=== PATIENT | male | born 1945 | race African-American/Black ===

== ENCOUNTER 2023-03-27 14:09 | Inpatient (IN) | payer OTHER ==
[2023-03-27] MEDS ORDERED: NITROGLYCERIN SUBLINGUAL 1/200 0.3 MG BTL SL ONE (14:57)
[2023-03-27 15:25] LABS: BASO % 0.2 % (0-2.0); HEMATOCRIT 32.8 % (35.4-49); HEMOGLOBIN 10.5 GM/dL (11.7-16.9); LYMPH % 3.4 % (8-40); MCH 25.3 pg (25.7-33.7); MCHC 32.1 g/dl (32.0-35.9); MEAN CELL VOLUME 78.8 fl (80-96); MEAN PLT VOLUME 9.1 fl (7.5-11.1); MONO % 5.9 % (3.8-10.2); NEUT % 90.5 % (42.8-82.8); PLATELET COUNT 201 10^3/uL (134-434); RBC 4.16 M/mm3 (4.00-5.60); RDW 15.6 % (11.9-15.9); WHITE BLOOD COUNT 7.8 K/mm3 (4.0-10.0)
[2023-03-27 15:27] LABS: VENOUS BASE EXCESS 2.2 mmol/L (-2-2); VENOUS O2 SATURATION 48.8 % (70-80); VENOUS PH 7.232 (7.310-7.410)
[2023-03-27 15:28] LABS: VENOUS PCO2 77.2 mmHg (38-52)
[2023-03-27 15:31] LABS: INR 1.03 (0.83-1.09)
[2023-03-27 15:34] LABS: ACTIVATED PTT 33.4 SECONDS (25.2-36.5)
[2023-03-27] MEDS ORDERED: FUROSEMIDE 40 MG/4 ML INJECTABLE VIAL IVPUSH ONE ×2 (15:38→17:20)
[2023-03-27] MEDS ORDERED: NITROGLYCERIN SUBLINGUAL 1/150 0.4 MG TAB SL ONE ×3 (15:38→16:46)
[2023-03-27] MEDS ORDERED: NITROGLYCERIN 2% OINTMENT - 1GM PACKET TD ONE ×2 (15:40→15:47)
[2023-03-27] MEDS ORDERED: FUROSEMIDE 40 MG/4 ML INJECTABLE VIAL ONE ×2 (15:42→17:56)
[2023-03-27 15:54] LABS: CALCIUM 8.7 mg/dL (8.5-10.1)
[2023-03-27 15:55] LABS: ALBUMIN 3.3 g/dl (3.4-5.0); BLOOD UREA NITROGEN 24.4 mg/dL (7-18)
[2023-03-27 15:58] LABS: CREATININE 1.9 mg/dL (0.55-1.3)
[2023-03-27 16:00] LABS: BILIRUBIN,TOTAL 0.7 mg/dL (0.2-1)
[2023-03-27 17:07] LABS: VENOUS BASE EXCESS 2.4 mmol/L (-2-2); VENOUS O2 SATURATION 73.6 % (70-80); VENOUS PH 7.251 (7.310-7.410)
[2023-03-27 17:11] LABS: VENOUS PCO2 72.9 mmHg (38-52)
[2023-03-27 18:47] LABS: N-TERMINAL BNP 1908.9 pg/ml (5-450)
[2023-03-27] MEDS ORDERED: hydrALAZINE HCL 10 MG TABLET PO ONE (20:39)
[2023-03-27] MEDS: HEPARIN NA (PORCINE) 5,000 UNITS/ML 1ML VIAL SQ SCH (21:52)
[2023-03-27] MEDS ORDERED: INSULIN (NOVOLOG) ASPART 100 UNITS/ML 10ML VIAL ONE (21:55)
[2023-03-27] MEDS: INSULIN SLIDING SCALE (NOVOLOG) 1 VIAL SQ SCH (22:00)
[2023-03-27] MEDS ORDERED: hydrALAZINE HCL 10 MG TABLET PO SCH (22:00)
[2023-03-28] MEDS: HEPARIN NA (PORCINE) 5,000 UNITS/ML 1ML VIAL SQ SCH ×4 (06:51→22:47)
[2023-03-28] MEDS: FUROSEMIDE 40 MG/4 ML INJECTABLE VIAL IVPUSH SCH ×2 (06:51→14:46)
[2023-03-28] MEDS: INSULIN SLIDING SCALE (NOVOLOG) 1 VIAL SQ SCH ×4 (06:51→22:21)
[2023-03-28 08:16] LABS: BASO % 0.5 % (0-2.0); HEMOGLOBIN 9.1 GM/dL (11.7-16.9); LYMPH % 8.2 % (8-40); MCH 24.9 pg (25.7-33.7); MCHC 31.6 g/dl (32.0-35.9); MEAN CELL VOLUME 78.9 fl (80-96); MEAN PLT VOLUME 9.3 fl (7.5-11.1); MONO % 14.1 % (3.8-10.2); NEUT % 76.2 % (42.8-82.8); PLATELET COUNT 178 10^3/uL (134-434); RBC 3.67 M/mm3 (4.00-5.60); RDW 15.4 % (11.9-15.9)
[2023-03-28 08:28] LABS: POTASSIUM 3.5 mmol/L (3.5-5.1)
[2023-03-28 08:33] LABS: CALCIUM 8.5 mg/dL (8.5-10.1)
[2023-03-28 08:34] LABS: ALBUMIN 2.7 g/dl (3.4-5.0); BLOOD UREA NITROGEN 22.6 mg/dL (7-18); MAGNESIUM 2.3 mg/dL (1.8-2.4)
[2023-03-28 08:35] LABS: PHOSPHOROUS 3.8 mg/dL (2.5-4.9)
[2023-03-28 08:37] LABS: BILIRUBIN,TOTAL 0.8 mg/dL (0.2-1); CREATININE 1.7 mg/dL (0.55-1.3); TOT PROT 6.6 g/dl (6.4-8.2)
[2023-03-28] MEDS: CLOPIDOGREL BISULFATE 75 MG TABLET (FP) PO SCH (10:04)
[2023-03-28] MEDS: TAMSULOSIN HCL 0.4 MG CAP PO SCH (10:04)
[2023-03-28] MEDS: amLODIPine BESYLATE 5 MG TABLET (FP) PO SCH (10:05)
[2023-03-28] MEDS: hydrALAZINE HCL 10 MG TABLET PO SCH ×3 (10:05→22:47)
[2023-03-28] MEDS: SERTRALINE HCL 25 MG TABLET (FP) PO SCH (10:05)
[2023-03-28] MEDS: ASPIRIN COATED 81 MG TABLET.EC PO SCH (10:05)
[2023-03-28 21:12] VITALS: BMI 31.8
[2023-03-28] MEDS: ATORVASTATIN CA 20 MG TABLET (FP) PO SCH ×2 (22:36→22:48)
[2023-03-29] MEDS: INSULIN SLIDING SCALE (NOVOLOG) 1 VIAL SQ SCH ×4 (06:03→23:17)
[2023-03-29] MEDS: FUROSEMIDE 40 MG/4 ML INJECTABLE VIAL IVPUSH SCH ×2 (06:11→13:30)
[2023-03-29] MEDS: HEPARIN NA (PORCINE) 5,000 UNITS/ML 1ML VIAL SQ SCH ×3 (06:11→23:16)
[2023-03-29] MEDS: SERTRALINE HCL 25 MG TABLET (FP) PO SCH (10:22)
[2023-03-29] MEDS: hydrALAZINE HCL 10 MG TABLET PO SCH ×2 (10:22→23:16)
[2023-03-29] MEDS: CLOPIDOGREL BISULFATE 75 MG TABLET (FP) PO SCH (10:23)
[2023-03-29] MEDS: amLODIPine BESYLATE 5 MG TABLET (FP) PO SCH (10:23)
[2023-03-29] MEDS: TAMSULOSIN HCL 0.4 MG CAP PO SCH (10:23)
[2023-03-29] MEDS: ASPIRIN COATED 81 MG TABLET.EC PO SCH (10:23)
[2023-03-29] MEDS: ATORVASTATIN CA 20 MG TABLET (FP) PO SCH (23:17)
[2023-03-30] MEDS: INSULIN SLIDING SCALE (NOVOLOG) 1 VIAL SQ SCH ×4 (06:46→23:04)
[2023-03-30] MEDS: HEPARIN NA (PORCINE) 5,000 UNITS/ML 1ML VIAL SQ SCH ×3 (06:51→23:04)
[2023-03-30] MEDS: FUROSEMIDE 40 MG/4 ML INJECTABLE VIAL IVPUSH SCH ×2 (06:51→13:30)
[2023-03-30 07:39] LABS: POTASSIUM 3.5 mmol/L (3.5-5.1)
[2023-03-30 07:45] LABS: ALBUMIN 2.7 g/dl (3.4-5.0); BLOOD UREA NITROGEN 20.7 mg/dL (7-18); CALCIUM 8.3 mg/dL (8.5-10.1)
[2023-03-30 07:48] LABS: CREATININE 1.7 mg/dL (0.55-1.3)
[2023-03-30 07:50] LABS: BILIRUBIN,TOTAL 0.9 mg/dL (0.2-1); TOT PROT 6.7 g/dl (6.4-8.2)
[2023-03-30] MEDS: TAMSULOSIN HCL 0.4 MG CAP PO SCH (08:01)
[2023-03-30] MEDS: CLOPIDOGREL BISULFATE 75 MG TABLET (FP) PO SCH (09:49)
[2023-03-30] MEDS: amLODIPine BESYLATE 5 MG TABLET (FP) PO SCH (09:49)
[2023-03-30] MEDS: hydrALAZINE HCL 10 MG TABLET PO SCH ×2 (09:50→23:04)
[2023-03-30] MEDS: ASPIRIN COATED 81 MG TABLET.EC PO SCH (09:50)
[2023-03-30] MEDS: SERTRALINE HCL 25 MG TABLET (FP) PO SCH (09:50)
[2023-03-30] MEDS ORDERED: INSULIN (NOVOLOG) ASPART 100 UNITS/ML 10ML VIAL ONE ×3 (11:46→23:02)
[2023-03-30 16:23] LABS: EPI CELLS 3 /uL (0-25.1); HYALINE CASTS 6 /uL (0-3.1); URINE APPEARANCE CLOUDY; URINE BACTERIA >9,000 /uL (0-1359); URINE BILIRUBIN NEGATIVE (NEGATIVE); URINE COLOR YELLOW; URINE GLUCOSE (UA) NEGATIVE (NEGATIVE); URINE KETONE NEGATIVE (NEGATIVE); URINE LEUK ESTERASE 1+ (NEGATIVE); URINE NITRITE NEGATIVE (NEGATIVE); URINE PROTEIN 3+ (NEGATIVE); URINE RBC 10 /uL (0-23.9); URINE UROBILINOGEN 0.2 mg/dL (0.2-1.0); URINE WBC 225 /uL (0-25.8)
[2023-03-30] MEDS: ATORVASTATIN CA 20 MG TABLET (FP) PO SCH (23:04)
[2023-03-31] MEDS: FUROSEMIDE 40 MG/4 ML INJECTABLE VIAL IVPUSH SCH (06:26)
[2023-03-31] MEDS: INSULIN SLIDING SCALE (NOVOLOG) 1 VIAL SQ SCH ×4 (06:31→21:26)
[2023-03-31] MEDS: HEPARIN NA (PORCINE) 5,000 UNITS/ML 1ML VIAL SQ SCH ×3 (06:35→21:26)
[2023-03-31 07:27] LABS: POTASSIUM 3.4 mmol/L (3.5-5.1)
[2023-03-31 07:32] LABS: CALCIUM 8.7 mg/dL (8.5-10.1)
[2023-03-31 07:33] LABS: ALBUMIN 2.9 g/dl (3.4-5.0); BLOOD UREA NITROGEN 19.9 mg/dL (7-18)
[2023-03-31 07:36] LABS: CREATININE 1.6 mg/dL (0.55-1.3)
[2023-03-31 07:38] LABS: BILIRUBIN,TOTAL 0.9 mg/dL (0.2-1); TOT PROT 7.5 g/dl (6.4-8.2)
[2023-03-31] MEDS: TAMSULOSIN HCL 0.4 MG CAP PO SCH (08:27)
[2023-03-31 08:36] LABS: BASO % 0.6 % (0-2.0); HEMATOCRIT 32.3 % (35.4-49); HEMOGLOBIN 10.1 GM/dL (11.7-16.9); LYMPH % 10.1 % (8-40); MCH 24.8 pg (25.7-33.7); MCHC 31.3 g/dl (32.0-35.9); MEAN CELL VOLUME 79.3 fl (80-96); MEAN PLT VOLUME 9.7 fl (7.5-11.1); MONO % 15.5 % (3.8-10.2); NEUT % 71.8 % (42.8-82.8); PLATELET COUNT 205 10^3/uL (134-434); RBC 4.07 M/mm3 (4.00-5.60); RDW 15.3 % (11.9-15.9); WHITE BLOOD COUNT 4.3 K/mm3 (4.0-10.0)
[2023-03-31] MEDS ORDERED: POTASSIUM CHLORIDE ORAL LIQUID 20 MEQ/15 ML PO ONE (08:38)
[2023-03-31] MEDS: SERTRALINE HCL 25 MG TABLET (FP) PO SCH (09:36)
[2023-03-31] MEDS: CLOPIDOGREL BISULFATE 75 MG TABLET (FP) PO SCH (09:36)
[2023-03-31] MEDS: TORSEMIDE 20 MG TABLET (FP) PO SCH (09:36)
[2023-03-31] MEDS: amLODIPine BESYLATE 5 MG TABLET (FP) PO SCH (09:36)
[2023-03-31] MEDS: ASPIRIN COATED 81 MG TABLET.EC PO SCH (09:36)
[2023-03-31] MEDS: hydrALAZINE HCL 10 MG TABLET PO SCH ×2 (09:38→21:27)
[2023-03-31] MEDS: POTASSIUM CHLORIDE ORAL LIQUID 20 MEQ/15 ML PO SCH (09:38)
[2023-03-31] MEDS: LISINOPRIL 5 MG TABLET PO SCH (17:17)
[2023-03-31] MEDS ORDERED: INSULIN (NOVOLOG) ASPART 100 UNITS/ML 10ML VIAL ONE (21:23)
[2023-03-31] MEDS: ATORVASTATIN CA 20 MG TABLET (FP) PO SCH (21:27)
[2023-04-01] MEDS: HEPARIN NA (PORCINE) 5,000 UNITS/ML 1ML VIAL SQ SCH ×3 (06:06→21:31)
[2023-04-01] MEDS: INSULIN SLIDING SCALE (NOVOLOG) 1 VIAL SQ SCH ×4 (06:07→21:31)
[2023-04-01] MEDS ORDERED: REGADENOSON 0.4 MG/5 ML PRE-FILLED SYRINGE IVPUSH ONE ×2 (09:56→10:30)
[2023-04-01] MEDS: TORSEMIDE 20 MG TABLET (FP) PO SCH (14:00)
[2023-04-01] MEDS: LISINOPRIL 5 MG TABLET PO SCH (14:00)
[2023-04-01] MEDS: POTASSIUM CHLORIDE ORAL LIQUID 20 MEQ/15 ML PO SCH (14:00)
[2023-04-01] MEDS: CLOPIDOGREL BISULFATE 75 MG TABLET (FP) PO SCH (14:01)
[2023-04-01] MEDS: SERTRALINE HCL 25 MG TABLET (FP) PO SCH (14:01)
[2023-04-01] MEDS: hydrALAZINE HCL 10 MG TABLET PO SCH ×2 (14:01→21:31)
[2023-04-01] MEDS: ASPIRIN COATED 81 MG TABLET.EC PO SCH (14:02)
[2023-04-01] MEDS: amLODIPine BESYLATE 5 MG TABLET (FP) PO SCH (14:02)
[2023-04-01] MEDS: TAMSULOSIN HCL 0.4 MG CAP PO SCH (14:03)
[2023-04-01] MEDS: ATORVASTATIN CA 20 MG TABLET (FP) PO SCH (21:31)
[2023-04-02] MEDS: INSULIN SLIDING SCALE (NOVOLOG) 1 VIAL SQ SCH ×4 (06:55→21:12)
[2023-04-02] MEDS: HEPARIN NA (PORCINE) 5,000 UNITS/ML 1ML VIAL SQ SCH ×3 (06:56→21:04)
[2023-04-02 07:35] LABS: BASO % 0.5 % (0-2.0); EOS % 2.4 % (0-4.5); HEMATOCRIT 32.7 % (35.4-49); HEMOGLOBIN 10.6 GM/dL (11.7-16.9); LYMPH % 9.1 % (8-40); MCH 25.3 pg (25.7-33.7); MCHC 32.4 g/dl (32.0-35.9); MEAN CELL VOLUME 78.1 fl (80-96); MEAN PLT VOLUME 9.5 fl (7.5-11.1); MONO % 10.8 % (3.8-10.2); NEUT % 77.2 % (42.8-82.8); PLATELET COUNT 209 10^3/uL (134-434); RBC 4.19 M/mm3 (4.00-5.60); WHITE BLOOD COUNT 5.9 K/mm3 (4.0-10.0)
[2023-04-02 07:42] LABS: POTASSIUM 3.4 mmol/L (3.5-5.1)
[2023-04-02 07:48] LABS: BLOOD UREA NITROGEN 21.5 mg/dL (7-18); CALCIUM 8.9 mg/dL (8.5-10.1)
[2023-04-02 07:52] LABS: CREATININE 1.6 mg/dL (0.55-1.3)
[2023-04-02 07:54] LABS: BILIRUBIN,TOTAL 0.9 mg/dL (0.2-1); TOT PROT 7.2 g/dl (6.4-8.2)
[2023-04-02] MEDS ORDERED: POTASSIUM CHLORIDE ORAL LIQUID 20 MEQ/15 ML PO SCH (07:56)
[2023-04-02] MEDS: TORSEMIDE 20 MG TABLET (FP) PO SCH (09:11)
[2023-04-02] MEDS: LISINOPRIL 5 MG TABLET PO SCH (09:12)
[2023-04-02] MEDS: CLOPIDOGREL BISULFATE 75 MG TABLET (FP) PO SCH (09:12)
[2023-04-02] MEDS: SERTRALINE HCL 25 MG TABLET (FP) PO SCH (09:12)
[2023-04-02] MEDS: amLODIPine BESYLATE 5 MG TABLET (FP) PO SCH (09:12)
[2023-04-02] MEDS: hydrALAZINE HCL 10 MG TABLET PO SCH (09:12)
[2023-04-02] MEDS: ASPIRIN COATED 81 MG TABLET.EC PO SCH (09:12)
[2023-04-02] MEDS: TAMSULOSIN HCL 0.4 MG CAP PO SCH (09:12)
[2023-04-02 09:18] VITALS: RESP 18
[2023-04-02] MEDS ORDERED: INSULIN (NOVOLOG) ASPART 100 UNITS/ML 10ML VIAL ONE ×2 (11:03→16:31)
[2023-04-02] MEDS ORDERED: metoPROLOL SUCCINATE 25 MG TAB.SR.24H (FP) PO SCH ×2 (18:00→18:03)
[2023-04-02] MEDS: ATORVASTATIN CA 20 MG TABLET (FP) PO SCH (21:04)
[2023-04-02 21:21] VITALS: BP 154/84; PULSE 77; TEMP 99
[2023-04-03] MEDS ORDERED: ASPIRIN 81 MG CHEWABLE TABLETS PO SCH (10:00)
== END 2023-04-02 21:34 | disposition home or self-care (01) | DRG 194 ==
LOC: JER 14:09 → JERBED 16:49 → J4W 18:19
PROVIDERS: ADMIT Internal Medicine; ATTEND Family Medicine
DX: I13.0 Hypertensive heart and chronic kidney disease with heart failure and stage 1 through stage 4 chronic kidney disease, or unspecified chronic kidney disease (principal); J96.01 Acute respiratory failure with hypoxia; E87.29 Other acidosis; J96.02 Acute respiratory failure with hypercapnia; E11.22 Type 2 diabetes mellitus with diabetic chronic kidney disease; I16.1 Hypertensive emergency; N18.9 Chronic kidney disease, unspecified; I50.9 Heart failure, unspecified; E78.5 Hyperlipidemia, unspecified; I73.9 Peripheral vascular disease, unspecified
CPT/HCPCS: 0241U-QW; 36415; 70450-TC; 71045-TC-FY; 76775-TC; 78452-TC; 80053; 80061; 81003; 82550; 82553; 82803; 82962; 83036; 83605; 83735; 83880; 84100; 84439; 84443; 84484; 85025; 85610; 85730; 86850; 86900; 86901; 87040; 93005; 93010; 93017; 93306-TC; 93880-TC; 94660; 94761; 99291; A9502; J1644; J2785

== ENCOUNTER 2023-05-11 15:16 | Inpatient (IN) | payer OTHER ==
[2023-05-11] MEDS ORDERED: FUROSEMIDE 40 MG/4 ML INJECTABLE VIAL IVPUSH ONE (16:17)
[2023-05-11 16:24] LABS: BASO % 0.4 % (0-2.0); EOS % 0.9 % (0-4.5); HEMATOCRIT 31.9 % (35.4-49); HEMOGLOBIN 9.9 GM/dL (11.7-16.9); LYMPH % 8.5 % (8-40); MCH 24.4 pg (25.7-33.7); MCHC 30.9 g/dl (32.0-35.9); MEAN CELL VOLUME 78.9 fl (80-96); MEAN PLT VOLUME 8.9 fl (7.5-11.1); MONO % 12.3 % (3.8-10.2); NEUT % 77.9 % (42.8-82.8); PLATELET COUNT 193 10^3/uL (134-434); RBC 4.05 M/mm3 (4.00-5.60); RDW 15.1 % (11.9-15.9); VENOUS O2 SATURATION 43.5 % (70-80); VENOUS PCO2 59.1 mmHg (38-52); VENOUS PH 7.32 (7.310-7.410); WHITE BLOOD COUNT 5.7 K/mm3 (4.0-10.0)
[2023-05-11] MEDS ORDERED: FUROSEMIDE 40 MG/4 ML INJECTABLE VIAL ONE (16:24)
[2023-05-11 16:40] LABS: PROTHROMBIN TIME (PATIENT) 11.6 SEC (9.7-13.0)
[2023-05-11 16:43] LABS: ACTIVATED PTT 31.2 SECONDS (25.2-36.5); POTASSIUM 3.9 mmol/L (3.5-5.1)
[2023-05-11 16:45] LABS: CALCIUM 8.8 mg/dL (8.5-10.1)
[2023-05-11 16:46] LABS: ALBUMIN 3.4 g/dl (3.4-5.0); BLOOD UREA NITROGEN 32.3 mg/dL (7-18); MAGNESIUM 2.3 mg/dL (1.8-2.4)
[2023-05-11 16:48] LABS: EPI CELLS 1 /uL (0-25.1); HYALINE CASTS 0 /uL (0-3.1); URINE APPEARANCE CLEAR; URINE BACTERIA >9,000 /uL (0-1359); URINE BILIRUBIN NEGATIVE (NEGATIVE); URINE COLOR YELLOW; URINE GLUCOSE (UA) NEGATIVE (NEGATIVE); URINE KETONE NEGATIVE (NEGATIVE); URINE LEUK ESTERASE 1+ (NEGATIVE); URINE NITRITE NEGATIVE (NEGATIVE); URINE PROTEIN 3+ (NEGATIVE); URINE RBC 24 /uL (0-23.9); URINE UROBILINOGEN 0.2 mg/dL (0.2-1.0); URINE WBC 241 /uL (0-25.8)
[2023-05-11 16:49] LABS: CREATININE 1.9 mg/dL (0.55-1.3); PHOSPHOROUS 3.5 mg/dL (2.5-4.9)
[2023-05-11 16:51] LABS: BILIRUBIN,TOTAL 0.8 mg/dL (0.2-1); TOT PROT 7.8 g/dl (6.4-8.2)
[2023-05-11 16:54] LABS: N-TERMINAL BNP 2211.6 pg/ml (5-450)
[2023-05-11] MEDS ORDERED: CEFTRIAXONE 1 GM in DEXTROSE 5%-WATER - 50 ML IVPB ONE (18:02)
[2023-05-11] MEDS ORDERED: CEFTRIAXONE 1 GM/50 ML BAG ONE (18:07)
[2023-05-11] MEDS ORDERED: NITROGLYCERIN 2% OINTMENT - 1GM PACKET TD ONE ×2 (20:05→20:19)
[2023-05-12] MEDS ORDERED: MELATONIN 5 MG TABLETS PO PRN (00:16)
[2023-05-12 05:58] LABS: BASO % 0.4 % (0-2.0); EOS % 0.7 % (0-4.5); HEMOGLOBIN 9.8 GM/dL (11.7-16.9); LYMPH % 7.7 % (8-40); MCH 24.7 pg (25.7-33.7); MCHC 30.5 g/dl (32.0-35.9); MEAN CELL VOLUME 81.1 fl (80-96); MEAN PLT VOLUME 9.4 fl (7.5-11.1); MONO % 12.6 % (3.8-10.2); NEUT % 78.6 % (42.8-82.8); PLATELET COUNT 195 10^3/uL (134-434); RBC 3.95 M/mm3 (4.00-5.60); RDW 15.2 % (11.9-15.9); WHITE BLOOD COUNT 7.4 K/mm3 (4.0-10.0)
[2023-05-12 06:12] LABS: POTASSIUM 3.7 mmol/L (3.5-5.1)
[2023-05-12 06:14] LABS: ALBUMIN 3.3 g/dl (3.4-5.0); BLOOD UREA NITROGEN 31.4 mg/dL (7-18); CALCIUM 8.7 mg/dL (8.5-10.1)
[2023-05-12 06:18] LABS: CREATININE 1.8 mg/dL (0.55-1.3)
[2023-05-12 06:19] LABS: BILIRUBIN,TOTAL 0.8 mg/dL (0.2-1); TOT PROT 7.6 g/dl (6.4-8.2)
[2023-05-12] MEDS: INSULIN SLIDING SCALE (NOVOLOG) 1 VIAL SQ SCH ×4 (08:40→21:58)
[2023-05-12] MEDS ORDERED: TAMSULOSIN HCL 0.4 MG CAP ONE (08:42)
[2023-05-12] MEDS: TAMSULOSIN HCL 0.4 MG CAP PO SCH (08:46)
[2023-05-12] MEDS ORDERED: LISINOPRIL 5 MG TABLET ONE (09:23)
[2023-05-12] MEDS ORDERED: amLODIPine BESYLATE 5 MG TABLET (FP) ONE (09:23)
[2023-05-12] MEDS ORDERED: ASPIRIN 81 MG CHEWABLE TABLETS ONE (09:24)
[2023-05-12] MEDS ORDERED: CLOPIDOGREL BISULFATE 75 MG TABLET (FP) ONE (09:24)
[2023-05-12] MEDS ORDERED: hydrALAZINE HCL 10 MG TABLET ONE (09:24)
[2023-05-12] MEDS ORDERED: CEFTRIAXONE 1 GM/50 ML BAG ONE (09:24)
[2023-05-12] MEDS ORDERED: SERTRALINE HCL 50 MG TABLET (FP) ONE (09:24)
[2023-05-12] MEDS: SERTRALINE HCL 25 MG TABLET (FP) PO SCH (09:33)
[2023-05-12] MEDS: ASPIRIN COATED 81 MG TABLET.EC PO SCH (09:33)
[2023-05-12] MEDS: amLODIPine BESYLATE 5 MG TABLET (FP) PO SCH (09:33)
[2023-05-12] MEDS: LISINOPRIL 5 MG TABLET PO SCH (09:33)
[2023-05-12] MEDS: CLOPIDOGREL BISULFATE 75 MG TABLET (FP) PO SCH (09:33)
[2023-05-12] MEDS: hydrALAZINE HCL 10 MG TABLET PO SCH ×2 (09:33→21:51)
[2023-05-12] MEDS: CEFTRIAXONE 1 GM in DEXTROSE 5%-WATER - 50 ML IVPB SCH (09:42)
[2023-05-12] MEDS ORDERED: TORSEMIDE 20 MG TABLET (FP) PO SCH (10:00)
[2023-05-12] MEDS ORDERED: FUROSEMIDE 40 MG/4 ML INJECTABLE VIAL IVPUSH SCH (11:15)
[2023-05-12] MEDS ORDERED: FUROSEMIDE 40 MG/4 ML INJECTABLE VIAL ONE (13:14)
[2023-05-12] MEDS ORDERED: hydrALAZINE HCL 20 MG/ML VIAL ONE (14:29)
[2023-05-12] MEDS ORDERED: FUROSEMIDE 40 MG/4 ML INJECTABLE VIAL IVPUSH ONE (15:00)
[2023-05-12] MEDS: LABETALOL HCL 200 MG TABLET (FP) PO SCH ×2 (15:17→21:51)
[2023-05-12] MEDS ORDERED: hydrALAZINE HCL 20 MG/ML VIAL IVPUSH ONE ×2 (15:43→15:44)
[2023-05-12] MEDS ORDERED: INSULIN (NOVOLOG) ASPART 100 UNITS/ML 10ML VIAL ONE ×3 (17:53→22:08)
[2023-05-12] MEDS: ATORVASTATIN CA 20 MG TABLET (FP) PO SCH (21:51)
[2023-05-13] MEDS ORDERED: INSULIN (NOVOLOG) ASPART 100 UNITS/ML 10ML VIAL ONE ×3 (07:08→16:43)
[2023-05-13] MEDS: INSULIN SLIDING SCALE (NOVOLOG) 1 VIAL SQ SCH ×4 (07:17→21:24)
[2023-05-13] MEDS: CEFTRIAXONE 1 GM in DEXTROSE 5%-WATER - 50 ML IVPB SCH (09:14)
[2023-05-13] MEDS: hydrALAZINE HCL 10 MG TABLET PO SCH ×2 (09:15→21:23)
[2023-05-13] MEDS: CLOPIDOGREL BISULFATE 75 MG TABLET (FP) PO SCH (09:15)
[2023-05-13] MEDS: LISINOPRIL 5 MG TABLET PO SCH (09:15)
[2023-05-13] MEDS: LABETALOL HCL 200 MG TABLET (FP) PO SCH ×2 (09:15→21:23)
[2023-05-13] MEDS: SERTRALINE HCL 25 MG TABLET (FP) PO SCH (09:16)
[2023-05-13] MEDS: amLODIPine BESYLATE 5 MG TABLET (FP) PO SCH (09:16)
[2023-05-13] MEDS: ASPIRIN COATED 81 MG TABLET.EC PO SCH (09:16)
[2023-05-13] MEDS: TAMSULOSIN HCL 0.4 MG CAP PO SCH (09:16)
[2023-05-13] MEDS: FUROSEMIDE 40 MG/4 ML INJECTABLE VIAL IVPUSH SCH (13:35)
[2023-05-13] MEDS: ENOXAPARIN NA (PORCINE) 30 MG/0.3 ML DISP.SYRIN SQ SCH (13:36)
[2023-05-13] MEDS: ATORVASTATIN CA 20 MG TABLET (FP) PO SCH (21:23)
[2023-05-14] MEDS ORDERED: INSULIN (NOVOLOG) ASPART 100 UNITS/ML 10ML VIAL ONE ×2 (05:27→18:02)
[2023-05-14] MEDS: FUROSEMIDE 40 MG/4 ML INJECTABLE VIAL IVPUSH SCH ×2 (05:28→14:32)
[2023-05-14] MEDS: INSULIN SLIDING SCALE (NOVOLOG) 1 VIAL SQ SCH ×4 (06:52→21:39)
[2023-05-14] MEDS: hydrALAZINE HCL 10 MG TABLET PO SCH ×2 (10:17→21:38)
[2023-05-14] MEDS: ENOXAPARIN NA (PORCINE) 30 MG/0.3 ML DISP.SYRIN SQ SCH (10:17)
[2023-05-14] MEDS: CEFTRIAXONE 1 GM in DEXTROSE 5%-WATER - 50 ML IVPB SCH (10:18)
[2023-05-14] MEDS: LABETALOL HCL 200 MG TABLET (FP) PO SCH ×2 (10:18→21:38)
[2023-05-14] MEDS: ASPIRIN COATED 81 MG TABLET.EC PO SCH (10:18)
[2023-05-14] MEDS: LISINOPRIL 5 MG TABLET PO SCH (10:18)
[2023-05-14] MEDS: CLOPIDOGREL BISULFATE 75 MG TABLET (FP) PO SCH (10:18)
[2023-05-14] MEDS: TAMSULOSIN HCL 0.4 MG CAP PO SCH (10:18)
[2023-05-14] MEDS: amLODIPine BESYLATE 5 MG TABLET (FP) PO SCH (10:18)
[2023-05-14] MEDS: SERTRALINE HCL 25 MG TABLET (FP) PO SCH (10:18)
[2023-05-14] MEDS: ATORVASTATIN CA 20 MG TABLET (FP) PO SCH (21:38)
[2023-05-15] MEDS: FUROSEMIDE 40 MG/4 ML INJECTABLE VIAL IVPUSH SCH (05:46)
[2023-05-15] MEDS: INSULIN SLIDING SCALE (NOVOLOG) 1 VIAL SQ SCH ×4 (06:05→22:50)
[2023-05-15 07:16] LABS: HEMATOCRIT 28.3 % (35.4-49); HEMOGLOBIN 8.8 GM/dL (11.7-16.9); MCH 24.4 pg (25.7-33.7); MCHC 31.1 g/dl (32.0-35.9); MEAN CELL VOLUME 78.4 fl (80-96); MEAN PLT VOLUME 9.6 fl (7.5-11.1); PLATELET COUNT 172 10^3/uL (134-434); RBC 3.61 M/mm3 (4.00-5.60); RDW 15.1 % (11.9-15.9); WHITE BLOOD COUNT 5.8 K/mm3 (4.0-10.0)
[2023-05-15 07:23] LABS: ALBUMIN 2.7 g/dl (3.4-5.0); CALCIUM 8.5 mg/dL (8.5-10.1)
[2023-05-15 07:24] LABS: BLOOD UREA NITROGEN 40.7 mg/dL (7-18)
[2023-05-15 07:26] LABS: CREATININE 2.1 mg/dL (0.55-1.3)
[2023-05-15 07:28] LABS: BILIRUBIN,TOTAL 0.7 mg/dL (0.2-1); TOT PROT 6.6 g/dl (6.4-8.2)
[2023-05-15] MEDS: TAMSULOSIN HCL 0.4 MG CAP PO SCH (07:59)
[2023-05-15] MEDS ORDERED: MELATONIN 5 MG TABLETS PO PRN (08:53)
[2023-05-15] MEDS: ENOXAPARIN NA (PORCINE) 30 MG/0.3 ML DISP.SYRIN SQ SCH (09:55)
[2023-05-15] MEDS: LABETALOL HCL 200 MG TABLET (FP) PO SCH ×2 (09:56→22:40)
[2023-05-15] MEDS: CEFTRIAXONE 1 GM in DEXTROSE 5%-WATER - 50 ML IVPB SCH (09:56)
[2023-05-15] MEDS: hydrALAZINE HCL 10 MG TABLET PO SCH ×2 (09:56→22:40)
[2023-05-15] MEDS: CLOPIDOGREL BISULFATE 75 MG TABLET (FP) PO SCH (09:56)
[2023-05-15] MEDS: ASPIRIN COATED 81 MG TABLET.EC PO SCH (09:56)
[2023-05-15] MEDS: SERTRALINE HCL 25 MG TABLET (FP) PO SCH (09:56)
[2023-05-15] MEDS: amLODIPine BESYLATE 5 MG TABLET (FP) PO SCH (09:56)
[2023-05-15] MEDS: LISINOPRIL 5 MG TABLET PO SCH (09:56)
[2023-05-15] MEDS: AMMONIUM LACTATE 12% LOTION 225 GM BOTTLE TP SCH ×2 (12:43→22:41)
[2023-05-15] MEDS ORDERED: FUROSEMIDE 40 MG/4 ML INJECTABLE VIAL IVPUSH SCH (14:00)
[2023-05-15] MEDS ORDERED: INSULIN (NOVOLOG) ASPART 100 UNITS/ML 10ML VIAL ONE (21:19)
[2023-05-15] MEDS: ATORVASTATIN CA 20 MG TABLET (FP) PO SCH (22:39)
[2023-05-16] MEDS: INSULIN SLIDING SCALE (NOVOLOG) 1 VIAL SQ SCH ×4 (08:24→22:15)
[2023-05-16] MEDS: TAMSULOSIN HCL 0.4 MG CAP PO SCH (10:54)
[2023-05-16] MEDS: amLODIPine BESYLATE 5 MG TABLET (FP) PO SCH (10:58)
[2023-05-16] MEDS: hydrALAZINE HCL 10 MG TABLET PO SCH ×2 (10:58→22:16)
[2023-05-16] MEDS: ASPIRIN COATED 81 MG TABLET.EC PO SCH (10:59)
[2023-05-16] MEDS: CLOPIDOGREL BISULFATE 75 MG TABLET (FP) PO SCH (10:59)
[2023-05-16] MEDS: LABETALOL HCL 200 MG TABLET (FP) PO SCH ×2 (10:59→22:16)
[2023-05-16] MEDS: SERTRALINE HCL 25 MG TABLET (FP) PO SCH (10:59)
[2023-05-16] MEDS: LISINOPRIL 5 MG TABLET PO SCH (11:00)
[2023-05-16] MEDS: ENOXAPARIN NA (PORCINE) 30 MG/0.3 ML DISP.SYRIN SQ SCH (11:00)
[2023-05-16] MEDS: CEFTRIAXONE 1 GM in DEXTROSE 5%-WATER - 50 ML IVPB SCH (11:00)
[2023-05-16] MEDS: AMMONIUM LACTATE 12% LOTION 225 GM BOTTLE TP SCH ×2 (11:01→22:16)
[2023-05-16] MEDS: ATORVASTATIN CA 20 MG TABLET (FP) PO SCH (22:16)
[2023-05-17] MEDS: INSULIN SLIDING SCALE (NOVOLOG) 1 VIAL SQ SCH ×5 (06:09→22:05)
[2023-05-17] MEDS: CEFTRIAXONE 1 GM in DEXTROSE 5%-WATER - 50 ML IVPB SCH (10:21)
[2023-05-17] MEDS: ENOXAPARIN NA (PORCINE) 30 MG/0.3 ML DISP.SYRIN SQ SCH (10:22)
[2023-05-17] MEDS: LISINOPRIL 5 MG TABLET PO SCH (10:23)
[2023-05-17] MEDS: ASPIRIN COATED 81 MG TABLET.EC PO SCH (10:23)
[2023-05-17] MEDS: hydrALAZINE HCL 10 MG TABLET PO SCH ×2 (10:23→21:11)
[2023-05-17] MEDS: SERTRALINE HCL 25 MG TABLET (FP) PO SCH (10:23)
[2023-05-17] MEDS: LABETALOL HCL 200 MG TABLET (FP) PO SCH ×2 (10:23→21:11)
[2023-05-17] MEDS: TAMSULOSIN HCL 0.4 MG CAP PO SCH (10:23)
[2023-05-17] MEDS: CLOPIDOGREL BISULFATE 75 MG TABLET (FP) PO SCH (10:23)
[2023-05-17] MEDS: amLODIPine BESYLATE 5 MG TABLET (FP) PO SCH (10:24)
[2023-05-17] MEDS: AMMONIUM LACTATE 12% LOTION 225 GM BOTTLE TP SCH ×2 (10:24→21:11)
[2023-05-17] MEDS ORDERED: INSULIN (NOVOLOG) ASPART 100 UNITS/ML 10ML VIAL ONE ×3 (10:59→16:44)
[2023-05-17 12:17] VITALS: BMI 34.6
[2023-05-17] MEDS: ATORVASTATIN CA 20 MG TABLET (FP) PO SCH (21:11)
[2023-05-17 22:41] VITALS: RESP 18
[2023-05-18] MEDS: INSULIN SLIDING SCALE (NOVOLOG) 1 VIAL SQ SCH ×2 (06:40→12:10)
[2023-05-18] MEDS: TAMSULOSIN HCL 0.4 MG CAP PO SCH (09:32)
[2023-05-18] MEDS: LISINOPRIL 5 MG TABLET PO SCH (09:32)
[2023-05-18] MEDS: SERTRALINE HCL 25 MG TABLET (FP) PO SCH (09:32)
[2023-05-18] MEDS: hydrALAZINE HCL 10 MG TABLET PO SCH (09:32)
[2023-05-18] MEDS: LABETALOL HCL 200 MG TABLET (FP) PO SCH (09:32)
[2023-05-18] MEDS: amLODIPine BESYLATE 5 MG TABLET (FP) PO SCH (09:32)
[2023-05-18] MEDS: CLOPIDOGREL BISULFATE 75 MG TABLET (FP) PO SCH (09:32)
[2023-05-18] MEDS: ASPIRIN COATED 81 MG TABLET.EC PO SCH (09:33)
[2023-05-18] MEDS: CEFTRIAXONE 1 GM in DEXTROSE 5%-WATER - 50 ML IVPB SCH (09:33)
[2023-05-18] MEDS: AMMONIUM LACTATE 12% LOTION 225 GM BOTTLE TP SCH (11:52)
[2023-05-18] MEDS: ENOXAPARIN NA (PORCINE) 30 MG/0.3 ML DISP.SYRIN SQ SCH (11:52)
[2023-05-18 15:46] VITALS: BP 130/62; PULSE 57; TEMP 97.4
== END 2023-05-18 16:52 | disposition home health service (06) | DRG 194 ==
LOC: JER 15:16 → JERBED 17:42 → J2W 05-12 14:01 → J8W 05-15 08:47
PROVIDERS: ADMIT Internal Medicine; ATTEND Family Medicine
DX: I13.0 Hypertensive heart and chronic kidney disease with heart failure and stage 1 through stage 4 chronic kidney disease, or unspecified chronic kidney disease (principal); I25.10 Atherosclerotic heart disease of native coronary artery without angina pectoris; E66.9 Obesity, unspecified; Z68.34 Body mass index [BMI] 34.0-34.9, adult; G47.00 Insomnia, unspecified; E78.5 Hyperlipidemia, unspecified; E11.51 Type 2 diabetes mellitus with diabetic peripheral angiopathy without gangrene; E11.22 Type 2 diabetes mellitus with diabetic chronic kidney disease; N18.9 Chronic kidney disease, unspecified; I50.33 Acute on chronic diastolic (congestive) heart failure; J96.01 Acute respiratory failure with hypoxia; J96.02 Acute respiratory failure with hypercapnia; I16.0 Hypertensive urgency; I27.20 Pulmonary hypertension, unspecified; R33.9 Retention of urine, unspecified; N17.9 Acute kidney failure, unspecified; L85.3 Xerosis cutis; B35.1 Tinea unguium; N39.0 Urinary tract infection, site not specified; B96.1 Klebsiella pneumoniae [K. pneumoniae] as the cause of diseases classified elsewhere
CPT/HCPCS: 0241U-QW; 36415; 71045-TC-FY; 80053; 81003; 82803; 82962; 83735; 83880; 84100; 84484; 85025; 85027; 85610; 85730; 87086; 87186; 93005; 93010; 94761; 97116-GP; 97161-GP; 99285-25

== ENCOUNTER 2023-05-27 19:32 | Inpatient (IN) | payer OTHER ==
[2023-05-27] MEDS ORDERED: FUROSEMIDE 40 MG/4 ML INJECTABLE VIAL IVPUSH ONE (19:48)
[2023-05-27 20:43] LABS: INR 1.1 (0.83-1.09); PROTHROMBIN TIME (PATIENT) 12.8 SEC (9.7-13.0)
[2023-05-27 20:46] LABS: ACTIVATED PTT 31.8 SECONDS (25.2-36.5)
[2023-05-27 20:54] LABS: POTASSIUM 4.1 mmol/L (3.5-5.1)
[2023-05-27 20:56] LABS: ALBUMIN 3.2 g/dl (3.4-5.0); BLOOD UREA NITROGEN 19.6 mg/dL (7-18); CALCIUM 8.9 mg/dL (8.5-10.1); MAGNESIUM 2.4 mg/dL (1.8-2.4)
[2023-05-27 20:59] LABS: CREATININE 1.7 mg/dL (0.55-1.3)
[2023-05-27 21:01] LABS: BILIRUBIN,TOTAL 0.8 mg/dL (0.2-1); TOT PROT 7.6 g/dl (6.4-8.2)
[2023-05-27 21:04] LABS: N-TERMINAL BNP 4205.3 pg/ml (5-450)
[2023-05-27 21:26] LABS: BASO % 0.4 % (0-2.0); EOS % 0.6 % (0-4.5); HEMATOCRIT 32.4 % (35.4-49); HEMOGLOBIN 9.7 GM/dL (11.7-16.9); MEAN CELL VOLUME 79.9 fl (80-96); PLATELET COUNT 153 10^3/uL (134-434); RBC 4.05 M/mm3 (4.00-5.60); RDW 15.7 % (11.9-15.9); WHITE BLOOD COUNT 12.3 K/mm3 (4.0-10.0)
[2023-05-27 21:27] LABS: VENOUS PH 7.202 (7.310-7.410)
[2023-05-27 21:28] LABS: VENOUS BASE EXCESS -2.7 mmol/L (-2-2)
[2023-05-27 21:32] LABS: VENOUS PCO2 71.1 mmHg (38-52)
[2023-05-27] MEDS ORDERED: HEPARIN NA (PORCINE) 5,000 UNITS/ML 1ML VIAL ONE (22:00)
[2023-05-27 22:28] LABS: VENOUS BASE EXCESS 0.9 mmol/L (-2-2); VENOUS O2 SATURATION 52.2 % (70-80); VENOUS PCO2 59.3 mmHg (38-52); VENOUS PH 7.296 (7.310-7.410)
[2023-05-28 07:09] LABS: BASO % 0.7 % (0-2.0); EOS % 0.2 % (0-4.5); HEMATOCRIT 30.4 % (35.4-49); HEMOGLOBIN 9.1 GM/dL (11.7-16.9); LYMPH % 10.8 % (8-40); MCH 24.5 pg (25.7-33.7); MCHC 29.9 g/dl (32.0-35.9); MEAN CELL VOLUME 81.9 fl (80-96); MEAN PLT VOLUME 10.2 fl (7.5-11.1); MONO % 10.7 % (3.8-10.2); NEUT % 77.6 % (42.8-82.8); PLATELET COUNT 151 10^3/uL (134-434); RBC 3.71 M/mm3 (4.00-5.60); RDW 15.4 % (11.9-15.9); WHITE BLOOD COUNT 7.9 K/mm3 (4.0-10.0)
[2023-05-28 07:20] LABS: POTASSIUM 3.9 mmol/L (3.5-5.1)
[2023-05-28 07:24] LABS: BLOOD UREA NITROGEN 19.6 mg/dL (7-18); CALCIUM 8.8 mg/dL (8.5-10.1)
[2023-05-28 07:27] LABS: CREATININE 1.7 mg/dL (0.55-1.3)
[2023-05-28 07:29] LABS: BILIRUBIN,TOTAL 0.7 mg/dL (0.2-1); TOT PROT 6.8 g/dl (6.4-8.2)
[2023-05-28] MEDS ORDERED: TAMSULOSIN HCL 0.4 MG CAP ONE (08:20)
[2023-05-28] MEDS: TAMSULOSIN HCL 0.4 MG CAP PO SCH (08:36)
[2023-05-28] MEDS: INSULIN SLIDING SCALE (NOVOLOG) 1 VIAL SQ SCH ×4 (08:47→21:34)
[2023-05-28] MEDS ORDERED: LISINOPRIL 5 MG TABLET ONE (10:04)
[2023-05-28] MEDS ORDERED: LABETALOL HCL 200 MG TABLET (FP) ONE (10:04)
[2023-05-28] MEDS ORDERED: ASPIRIN COATED 81 MG TABLET.EC ONE (10:04)
[2023-05-28] MEDS ORDERED: amLODIPine BESYLATE 5 MG TABLET (FP) ONE (10:04)
[2023-05-28] MEDS ORDERED: hydrALAZINE HCL 10 MG TABLET ONE (10:05)
[2023-05-28] MEDS ORDERED: SERTRALINE HCL 50 MG TABLET (FP) ONE (10:05)
[2023-05-28] MEDS ORDERED: CLOPIDOGREL BISULFATE 75 MG TABLET (FP) ONE (10:05)
[2023-05-28] MEDS ORDERED: FUROSEMIDE 40 MG/4 ML INJECTABLE VIAL ONE (10:12)
[2023-05-28] MEDS ORDERED: INSULIN (LEVEMIR) 100 UNITS/ML UNITS SQ ONE (10:13)
[2023-05-28] MEDS: INSULIN (LEVEMIR) 100 UNITS/ML UNITS SQ SCH (10:39)
[2023-05-28] MEDS: ASPIRIN COATED 81 MG TABLET.EC PO SCH (10:39)
[2023-05-28] MEDS: FUROSEMIDE 40 MG/4 ML INJECTABLE VIAL IVPUSH SCH (10:39)
[2023-05-28] MEDS: hydrALAZINE HCL 10 MG TABLET PO SCH ×2 (10:39→21:23)
[2023-05-28] MEDS: LISINOPRIL 5 MG TABLET PO SCH (10:40)
[2023-05-28] MEDS: LABETALOL HCL 200 MG TABLET (FP) PO SCH ×2 (10:40→21:23)
[2023-05-28] MEDS: SERTRALINE HCL 25 MG TABLET (FP) PO SCH (10:40)
[2023-05-28] MEDS: amLODIPine BESYLATE 5 MG TABLET (FP) PO SCH (10:40)
[2023-05-28] MEDS: CLOPIDOGREL BISULFATE 75 MG TABLET (FP) PO SCH (10:40)
[2023-05-28 13:38] LABS: EPI CELLS 17 /uL (0-25.1); HYALINE CASTS 1 /uL (0-3.1); PH,URINE 7.5 (5.0-8.0); URINE APPEARANCE CLOUDY; URINE BACTERIA 59 /uL (0-1359); URINE BILIRUBIN NEGATIVE (NEGATIVE); URINE COLOR YELLOW; URINE GLUCOSE (UA) NEGATIVE (NEGATIVE); URINE KETONE NEGATIVE (NEGATIVE); URINE LEUK ESTERASE NEGATIVE (NEGATIVE); URINE NITRITE NEGATIVE (NEGATIVE); URINE PROTEIN 3+ (NEGATIVE); URINE RBC 92 /uL (0-23.9); URINE UROBILINOGEN 0.2 mg/dL (0.2-1.0); URINE WBC 37 /uL (0-25.8)
[2023-05-28 15:56] VITALS: BMI 35.2
[2023-05-28] MEDS: ATORVASTATIN CA 20 MG TABLET (FP) PO SCH (21:23)
[2023-05-28] MEDS: AMMONIUM LACTATE 12% LOTION 225 GM BOTTLE TP SCH ×2 (22:19→22:20)
[2023-05-29] MEDS: INSULIN SLIDING SCALE (NOVOLOG) 1 VIAL SQ SCH ×4 (06:08→21:02)
[2023-05-29 08:30] LABS: BASO % 0.6 % (0-2.0); EOS % 2.5 % (0-4.5); HEMATOCRIT 29.3 % (35.4-49); HEMOGLOBIN 8.8 GM/dL (11.7-16.9); LYMPH % 11.8 % (8-40); MCH 24.6 pg (25.7-33.7); MEAN CELL VOLUME 82.1 fl (80-96); MEAN PLT VOLUME 10.9 fl (7.5-11.1); MONO % 14.2 % (3.8-10.2); NEUT % 70.9 % (42.8-82.8); PLATELET COUNT 152 10^3/uL (134-434); RBC 3.56 M/mm3 (4.00-5.60); RDW 15.6 % (11.9-15.9); WHITE BLOOD COUNT 4.9 K/mm3 (4.0-10.0)
[2023-05-29 09:05] LABS: BLOOD UREA NITROGEN 22.5 mg/dL (7-18); CALCIUM 8.7 mg/dL (8.5-10.1)
[2023-05-29 09:09] LABS: ALBUMIN 2.8 g/dl (3.4-5.0)
[2023-05-29 09:11] LABS: CREATININE 1.8 mg/dL (0.55-1.3); TOT PROT 6.6 g/dl (6.4-8.2)
[2023-05-29 09:13] LABS: BILIRUBIN,TOTAL 0.7 mg/dL (0.2-1)
[2023-05-29 09:14] LABS: RETICULOCYTES 2.06 % (0.5-1.5)
[2023-05-29] MEDS: CLOPIDOGREL BISULFATE 75 MG TABLET (FP) PO SCH (10:08)
[2023-05-29] MEDS: SERTRALINE HCL 25 MG TABLET (FP) PO SCH (10:08)
[2023-05-29] MEDS: TAMSULOSIN HCL 0.4 MG CAP PO SCH (10:08)
[2023-05-29] MEDS: hydrALAZINE HCL 10 MG TABLET PO SCH ×2 (10:08→21:01)
[2023-05-29] MEDS: ASPIRIN COATED 81 MG TABLET.EC PO SCH (10:08)
[2023-05-29] MEDS: amLODIPine BESYLATE 5 MG TABLET (FP) PO SCH (10:08)
[2023-05-29] MEDS: LISINOPRIL 5 MG TABLET PO SCH (10:08)
[2023-05-29] MEDS: LABETALOL HCL 200 MG TABLET (FP) PO SCH ×2 (10:09→21:02)
[2023-05-29] MEDS: FUROSEMIDE 40 MG/4 ML INJECTABLE VIAL IVPUSH SCH (10:09)
[2023-05-29] MEDS: INSULIN (LEVEMIR) 100 UNITS/ML UNITS SQ SCH (10:09)
[2023-05-29] MEDS: AMMONIUM LACTATE 12% LOTION 225 GM BOTTLE TP SCH ×2 (10:10→21:02)
[2023-05-29] MEDS: ATORVASTATIN CA 20 MG TABLET (FP) PO SCH (21:01)
[2023-05-30] MEDS: INSULIN SLIDING SCALE (NOVOLOG) 1 VIAL SQ SCH ×4 (06:01→21:34)
[2023-05-30] MEDS: LABETALOL HCL 200 MG TABLET (FP) PO SCH ×2 (10:08→21:33)
[2023-05-30] MEDS: TAMSULOSIN HCL 0.4 MG CAP PO SCH (10:08)
[2023-05-30] MEDS: LISINOPRIL 5 MG TABLET PO SCH (10:09)
[2023-05-30] MEDS: INSULIN (LEVEMIR) 100 UNITS/ML UNITS SQ SCH (10:10)
[2023-05-30] MEDS: CLOPIDOGREL BISULFATE 75 MG TABLET (FP) PO SCH (10:10)
[2023-05-30] MEDS: amLODIPine BESYLATE 5 MG TABLET (FP) PO SCH (10:10)
[2023-05-30] MEDS: AMMONIUM LACTATE 12% LOTION 225 GM BOTTLE TP SCH ×2 (10:11→21:33)
[2023-05-30] MEDS: FUROSEMIDE 40 MG/4 ML INJECTABLE VIAL IVPUSH SCH (10:11)
[2023-05-30] MEDS: hydrALAZINE HCL 10 MG TABLET PO SCH ×2 (10:11→21:33)
[2023-05-30] MEDS: SERTRALINE HCL 25 MG TABLET (FP) PO SCH (10:11)
[2023-05-30] MEDS: ASPIRIN COATED 81 MG TABLET.EC PO SCH (10:11)
[2023-05-30] MEDS ORDERED: INSULIN (NOVOLOG) ASPART 100 UNITS/ML 10ML VIAL ONE (21:23)
[2023-05-30] MEDS: ATORVASTATIN CA 20 MG TABLET (FP) PO SCH (21:33)
[2023-05-31] MEDS: INSULIN SLIDING SCALE (NOVOLOG) 1 VIAL SQ SCH ×3 (06:18→23:07)
[2023-05-31] MEDS: hydrALAZINE HCL 10 MG TABLET PO SCH ×3 (09:51→23:08)
[2023-05-31] MEDS: ASPIRIN COATED 81 MG TABLET.EC PO SCH ×2 (09:52→14:10)
[2023-05-31] MEDS: FUROSEMIDE 40 MG/4 ML INJECTABLE VIAL IVPUSH SCH ×2 (09:52→14:10)
[2023-05-31] MEDS: AMMONIUM LACTATE 12% LOTION 225 GM BOTTLE TP SCH ×2 (09:52→23:09)
[2023-05-31] MEDS: INSULIN (LEVEMIR) 100 UNITS/ML UNITS SQ SCH (09:52)
[2023-05-31] MEDS: SERTRALINE HCL 25 MG TABLET (FP) PO SCH ×2 (09:53→14:09)
[2023-05-31] MEDS: amLODIPine BESYLATE 5 MG TABLET (FP) PO SCH ×2 (09:53→14:09)
[2023-05-31] MEDS: LISINOPRIL 5 MG TABLET PO SCH ×2 (09:53→14:09)
[2023-05-31] MEDS: CLOPIDOGREL BISULFATE 75 MG TABLET (FP) PO SCH ×2 (09:53→14:09)
[2023-05-31] MEDS: LABETALOL HCL 200 MG TABLET (FP) PO SCH ×3 (09:59→23:08)
[2023-05-31] MEDS: TAMSULOSIN HCL 0.4 MG CAP PO SCH ×2 (09:59→14:08)
[2023-05-31] MEDS: ATORVASTATIN CA 20 MG TABLET (FP) PO SCH (23:08)
[2023-06-01] MEDS: INSULIN SLIDING SCALE (NOVOLOG) 1 VIAL SQ SCH ×4 (07:43→21:24)
[2023-06-01] MEDS: ASPIRIN COATED 81 MG TABLET.EC PO SCH (09:18)
[2023-06-01] MEDS: TAMSULOSIN HCL 0.4 MG CAP PO SCH (09:18)
[2023-06-01] MEDS: hydrALAZINE HCL 10 MG TABLET PO SCH ×2 (09:18→21:20)
[2023-06-01] MEDS: CLOPIDOGREL BISULFATE 75 MG TABLET (FP) PO SCH (09:18)
[2023-06-01] MEDS: LISINOPRIL 5 MG TABLET PO SCH (09:18)
[2023-06-01] MEDS: amLODIPine BESYLATE 5 MG TABLET (FP) PO SCH (09:18)
[2023-06-01] MEDS: LABETALOL HCL 200 MG TABLET (FP) PO SCH ×2 (09:19→21:20)
[2023-06-01] MEDS: INSULIN (LEVEMIR) 100 UNITS/ML UNITS SQ SCH (09:19)
[2023-06-01] MEDS: FUROSEMIDE 40 MG/4 ML INJECTABLE VIAL IVPUSH SCH (09:19)
[2023-06-01] MEDS: SERTRALINE HCL 25 MG TABLET (FP) PO SCH (09:19)
[2023-06-01] MEDS: AMMONIUM LACTATE 12% LOTION 225 GM BOTTLE TP SCH ×2 (11:05→21:42)
[2023-06-01 11:34] LABS: BLOOD UREA NITROGEN 24.3 mg/dL (7-18); CALCIUM 8.8 mg/dL (8.5-10.1)
[2023-06-01 11:35] LABS: ALBUMIN 2.8 g/dl (3.4-5.0)
[2023-06-01 11:38] LABS: CREATININE 1.8 mg/dL (0.55-1.3)
[2023-06-01 11:39] LABS: BILIRUBIN,TOTAL 0.4 mg/dL (0.2-1); TOT PROT 6.8 g/dl (6.4-8.2)
[2023-06-01 11:53] LABS: BASO % 0.4 % (0-2.0); EOS % 3.5 % (0-4.5); HEMATOCRIT 29.6 % (35.4-49); HEMOGLOBIN 8.7 GM/dL (11.7-16.9); LYMPH % 13.9 % (8-40); MCH 23.8 pg (25.7-33.7); MCHC 29.5 g/dl (32.0-35.9); MEAN CELL VOLUME 80.6 fl (80-96); MEAN PLT VOLUME 9.6 fl (7.5-11.1); MONO % 13.6 % (3.8-10.2); NEUT % 68.6 % (42.8-82.8); PLATELET COUNT 142 10^3/uL (134-434); RBC 3.67 M/mm3 (4.00-5.60); RDW 15.7 % (11.9-15.9); WHITE BLOOD COUNT 3.4 K/mm3 (4.0-10.0)
[2023-06-01] MEDS ORDERED: INSULIN (NOVOLOG) ASPART 100 UNITS/ML 10ML VIAL ONE ×2 (16:39→16:51)
[2023-06-01] MEDS ORDERED: INSULIN (LEVEMIR) 100 UNITS/ML UNITS SQ ONE (16:51)
[2023-06-01] MEDS: ATORVASTATIN CA 20 MG TABLET (FP) PO SCH (21:20)
[2023-06-02] MEDS: INSULIN SLIDING SCALE (NOVOLOG) 1 VIAL SQ SCH ×4 (06:12→21:39)
[2023-06-02] MEDS: CLOPIDOGREL BISULFATE 75 MG TABLET (FP) PO SCH (09:22)
[2023-06-02] MEDS: SERTRALINE HCL 25 MG TABLET (FP) PO SCH (09:22)
[2023-06-02] MEDS: ASPIRIN COATED 81 MG TABLET.EC PO SCH (09:22)
[2023-06-02] MEDS: LABETALOL HCL 100 MG TABLET (FP) PO SCH ×2 (09:22→21:33)
[2023-06-02] MEDS: LISINOPRIL 5 MG TABLET PO SCH (09:22)
[2023-06-02] MEDS: hydrALAZINE HCL 10 MG TABLET PO SCH ×3 (09:22→21:33)
[2023-06-02] MEDS: INSULIN (LEVEMIR) 100 UNITS/ML UNITS SQ SCH ×2 (09:23→09:29)
[2023-06-02] MEDS: amLODIPine BESYLATE 5 MG TABLET (FP) PO SCH (09:23)
[2023-06-02] MEDS: TAMSULOSIN HCL 0.4 MG CAP PO SCH (09:23)
[2023-06-02] MEDS: AMMONIUM LACTATE 12% LOTION 225 GM BOTTLE TP SCH ×2 (09:23→21:33)
[2023-06-02] MEDS ORDERED: INSULIN (LEVEMIR) 100 UNITS/ML UNITS SQ ONE (11:47)
[2023-06-02] MEDS: TORSEMIDE 20 MG TABLET (FP) PO SCH (13:18)
[2023-06-02] MEDS: ATORVASTATIN CA 20 MG TABLET (FP) PO SCH (21:33)
[2023-06-02] MEDS ORDERED: TORSEMIDE 20 MG TABLET (FP) PO SCH (22:00)
[2023-06-03] MEDS: hydrALAZINE HCL 10 MG TABLET PO SCH ×2 (05:52→13:12)
[2023-06-03] MEDS: TORSEMIDE 20 MG TABLET (FP) PO SCH ×2 (05:52→13:11)
[2023-06-03] MEDS: INSULIN SLIDING SCALE (NOVOLOG) 1 VIAL SQ SCH ×2 (06:04→10:58)
[2023-06-03 07:24] LABS: POTASSIUM 3.7 mmol/L (3.5-5.1)
[2023-06-03 07:30] LABS: BLOOD UREA NITROGEN 22.5 mg/dL (7-18); CALCIUM 8.5 mg/dL (8.5-10.1)
[2023-06-03 07:33] LABS: CREATININE 1.6 mg/dL (0.55-1.3)
[2023-06-03 07:34] LABS: BILIRUBIN,TOTAL 0.6 mg/dL (0.2-1); TOT PROT 6.8 g/dl (6.4-8.2)
[2023-06-03 08:18] VITALS: RESP 18
[2023-06-03] MEDS: AMMONIUM LACTATE 12% LOTION 225 GM BOTTLE TP SCH (09:41)
[2023-06-03] MEDS: LABETALOL HCL 100 MG TABLET (FP) PO SCH ×2 (09:43→13:11)
[2023-06-03] MEDS: INSULIN (LEVEMIR) 100 UNITS/ML UNITS SQ SCH (09:43)
[2023-06-03] MEDS: ASPIRIN COATED 81 MG TABLET.EC PO SCH ×2 (09:43→13:12)
[2023-06-03] MEDS: TAMSULOSIN HCL 0.4 MG CAP PO SCH (09:43)
[2023-06-03] MEDS: LISINOPRIL 5 MG TABLET PO SCH (09:45)
[2023-06-03] MEDS: CLOPIDOGREL BISULFATE 75 MG TABLET (FP) PO SCH ×2 (09:45→13:11)
[2023-06-03] MEDS: amLODIPine BESYLATE 5 MG TABLET (FP) PO SCH ×2 (09:45→13:11)
[2023-06-03] MEDS: SERTRALINE HCL 25 MG TABLET (FP) PO SCH ×2 (09:45→13:13)
[2023-06-03 13:17] VITALS: BP 160/73; PULSE 63; TEMP 98.4
[2023-06-03 17:08] LABS: FREE KAPPA,SERUM 110.8 mg/L (3.3-19.4)
== END 2023-06-03 16:41 | disposition home or self-care (01) | DRG 194 ==
LOC: JER 19:32 → JERBED 21:50 → J4W 05-28 15:23
PROVIDERS: ADMIT Internal Medicine; ATTEND Family Medicine
DX: I13.0 Hypertensive heart and chronic kidney disease with heart failure and stage 1 through stage 4 chronic kidney disease, or unspecified chronic kidney disease (principal); I50.33 Acute on chronic diastolic (congestive) heart failure; N18.9 Chronic kidney disease, unspecified; E11.22 Type 2 diabetes mellitus with diabetic chronic kidney disease; E66.9 Obesity, unspecified; Z68.35 Body mass index [BMI] 35.0-35.9, adult; E11.51 Type 2 diabetes mellitus with diabetic peripheral angiopathy without gangrene; E78.5 Hyperlipidemia, unspecified; E87.29 Other acidosis; J96.01 Acute respiratory failure with hypoxia; I25.10 Atherosclerotic heart disease of native coronary artery without angina pectoris; J96.02 Acute respiratory failure with hypercapnia; N17.9 Acute kidney failure, unspecified; I27.20 Pulmonary hypertension, unspecified; E87.70 Fluid overload, unspecified; R33.8 Other retention of urine; D64.9 Anemia, unspecified; I44.0 Atrioventricular block, first degree
CPT/HCPCS: 36415; 71045-TC-FY; 76775-TC; 76856-TC; 80053; 81003; 82570; 82728; 82803; 82962; 83540; 83550; 83735; 83880; 83883; 84155; 84165; 84300; 84466; 84484; 85025; 85045; 85610; 85730; 87635; 93005; 93010; 94660; 94761; 97116-GP; 99285-25

== ENCOUNTER 2023-11-10 12:19 | Inpatient (IN) | payer OTHER ==
[2023-11-10] MEDS ORDERED: FUROSEMIDE 40 MG/4 ML INJECTABLE VIAL IVPUSH ONE (14:23)
[2023-11-10] MEDS ORDERED: FUROSEMIDE 40 MG/4 ML INJECTABLE VIAL ONE (14:35)
[2023-11-10 14:46] LABS: INR 1.06 (0.83-1.09); PROTHROMBIN TIME (PATIENT) 12.3 SEC (9.7-13.0)
[2023-11-10 14:49] LABS: ACTIVATED PTT 37.8 SECONDS (25.2-36.5)
[2023-11-10 14:57] LABS: CHLORIDE 111 mmol/L (98-107); SODIUM 140 mmol/L (136-145)
[2023-11-10 14:58] LABS: CALCIUM 8.6 mg/dL (8.5-10.1)
[2023-11-10 14:59] LABS: ALBUMIN 2.6 g/dl (3.4-5.0); BLOOD UREA NITROGEN 34.2 mg/dL (7-18); CO2 27 mmol/L (21-32); GLUCOSE,RANDOM 90 mg/dL (74-106)
[2023-11-10 15:02] LABS: CREATININE 1.9 mg/dL (0.55-1.3); SGOT/AST 106 U/L (15-37); SGPT/ALT 90 U/L (13-61)
[2023-11-10 15:04] LABS: BILIRUBIN,TOTAL 0.4 mg/dL (0.2-1)
[2023-11-10 15:05] LABS: ALK PHOS 298 U/L (45-117)
[2023-11-10 15:09] LABS: ANION GAP 2 mmol/L (4-13); POTASSIUM 6.3 mmol/L (3.5-5.1)
[2023-11-10 15:13] LABS: BASO % 0.7 % (0-2.0); EOS % 1.3 % (0-4.5); HEMATOCRIT 30.3 % (35.4-49); LYMPH % 20.6 % (8-40); MCH 22.7 pg (25.7-33.7); MCHC 29.8 g/dl (32.0-35.9); MEAN CELL VOLUME 76.1 fl (80-96); MEAN PLT VOLUME 7.9 fl (7.5-11.1); MONO % 12.5 % (3.8-10.2); NEUT % 64.9 % (42.8-82.8); PLATELET COUNT 211 10^3/uL (134-434); RBC 3.98 M/mm3 (4.00-5.60); RDW 17.6 % (11.9-15.9); WHITE BLOOD COUNT 4.6 K/mm3 (4.0-10.0)
[2023-11-10 17:03] LABS: POTASSIUM 4.3 mmol/L (3.5-5.1)
[2023-11-10 17:05] LABS: BLOOD UREA NITROGEN 35.8 mg/dL (7-18)
[2023-11-11 07:51] LABS: BASO % 0.8 % (0-2.0); EOS % 0.9 % (0-4.5); HEMATOCRIT 27.1 % (35.4-49); HEMOGLOBIN 8.3 GM/dL (11.7-16.9); LYMPH % 11.3 % (8-40); MCH 22.9 pg (25.7-33.7); MCHC 30.6 g/dl (32.0-35.9); MEAN CELL VOLUME 74.8 fl (80-96); MONO % 16.6 % (3.8-10.2); NEUT % 70.4 % (42.8-82.8); PLATELET COUNT 233 10^3/uL (134-434); RBC 3.63 M/mm3 (4.00-5.60); RDW 17.5 % (11.9-15.9); WHITE BLOOD COUNT 4.8 K/mm3 (4.0-10.0)
[2023-11-11 08:20] LABS: ALBUMIN 2.4 g/dl (3.4-5.0); BILIRUBIN,TOTAL 0.6 mg/dL (0.2-1); BLOOD UREA NITROGEN 32.5 mg/dL (7-18); CALCIUM 8.4 mg/dL (8.5-10.1); CREATININE 1.9 mg/dL (0.55-1.3); POTASSIUM 4.5 mmol/L (3.5-5.1); TOT PROT 6.9 g/dl (6.4-8.2)
[2023-11-11] MEDS: INSULIN SLIDING SCALE (NOVOLOG) 1 VIAL SQ SCH ×4 (09:57→22:37)
[2023-11-11] MEDS ORDERED: CLOPIDOGREL BISULFATE 75 MG TABLET (FP) PO SCH (10:00)
[2023-11-11] MEDS ORDERED: LISINOPRIL 5 MG TABLET PO SCH (10:00)
[2023-11-11] MEDS ORDERED: amLODIPine BESYLATE 5 MG TABLET (FP) ONE (10:02)
[2023-11-11] MEDS ORDERED: TAMSULOSIN HCL 0.4 MG CAP ONE (10:03)
[2023-11-11] MEDS ORDERED: CLOPIDOGREL BISULFATE 75 MG TABLET (FP) ONE (10:03)
[2023-11-11] MEDS ORDERED: ASPIRIN 81 MG CHEWABLE TABLETS ONE (10:03)
[2023-11-11] MEDS ORDERED: FUROSEMIDE 40 MG/4 ML INJECTABLE VIAL ONE (10:03)
[2023-11-11] MEDS ORDERED: hydrALAZINE HCL 10 MG TABLET ONE ×2 (10:03→16:37)
[2023-11-11] MEDS ORDERED: LABETALOL HCL 100 MG TABLET (FP) ONE (10:03)
[2023-11-11] MEDS: hydrALAZINE HCL 10 MG TABLET PO SCH ×3 (10:05→22:27)
[2023-11-11] MEDS: amLODIPine BESYLATE 5 MG TABLET (FP) PO SCH (10:05)
[2023-11-11] MEDS: FUROSEMIDE 40 MG/4 ML INJECTABLE VIAL IVPUSH SCH (10:05)
[2023-11-11] MEDS: LABETALOL HCL 100 MG TABLET (FP) PO SCH ×2 (10:05→22:27)
[2023-11-11] MEDS: TAMSULOSIN HCL 0.4 MG CAP PO SCH (10:05)
[2023-11-11] MEDS: SERTRALINE HCL 25 MG TABLET (FP) PO SCH (10:05)
[2023-11-11] MEDS: ASPIRIN COATED 81 MG TABLET.EC PO SCH (10:05)
[2023-11-11] MEDS: ATORVASTATIN CA 20 MG TABLET (FP) PO SCH (22:27)
[2023-11-12] MEDS: hydrALAZINE HCL 10 MG TABLET PO SCH ×3 (05:52→22:12)
[2023-11-12] MEDS: INSULIN SLIDING SCALE (NOVOLOG) 1 VIAL SQ SCH ×4 (06:04→22:13)
[2023-11-12] MEDS: FUROSEMIDE 40 MG/4 ML INJECTABLE VIAL IVPUSH SCH (10:22)
[2023-11-12] MEDS: amLODIPine BESYLATE 5 MG TABLET (FP) PO SCH (10:26)
[2023-11-12] MEDS: ASPIRIN COATED 81 MG TABLET.EC PO SCH (10:27)
[2023-11-12] MEDS: TAMSULOSIN HCL 0.4 MG CAP PO SCH (10:27)
[2023-11-12] MEDS: SERTRALINE HCL 25 MG TABLET (FP) PO SCH (10:27)
[2023-11-12] MEDS: LABETALOL HCL 100 MG TABLET (FP) PO SCH ×2 (10:28→22:12)
[2023-11-12] MEDS: ATORVASTATIN CA 20 MG TABLET (FP) PO SCH (22:12)
[2023-11-13 06:20] LABS: HEMATOCRIT 26.8 % (35.4-49); HEMOGLOBIN 8.3 GM/dL (11.7-16.9); MCHC 30.9 g/dl (32.0-35.9); MEAN CELL VOLUME 74.6 fl (80-96); MEAN PLT VOLUME 7.8 fl (7.5-11.1); PLATELET COUNT 216 10^3/uL (134-434); RDW 17.5 % (11.9-15.9); WHITE BLOOD COUNT 4.1 K/mm3 (4.0-10.0)
[2023-11-13] MEDS: INSULIN SLIDING SCALE (NOVOLOG) 1 VIAL SQ SCH ×4 (06:20→21:49)
[2023-11-13] MEDS: hydrALAZINE HCL 10 MG TABLET PO SCH ×3 (06:21→21:42)
[2023-11-13 06:40] LABS: POTASSIUM 4.1 mmol/L (3.5-5.1)
[2023-11-13 06:43] LABS: CALCIUM 8.1 mg/dL (8.5-10.1)
[2023-11-13 06:44] LABS: ALBUMIN 2.2 g/dl (3.4-5.0); BLOOD UREA NITROGEN 38.5 mg/dL (7-18)
[2023-11-13 06:47] LABS: CREATININE 2.4 mg/dL (0.55-1.3)
[2023-11-13 06:48] LABS: BILIRUBIN,TOTAL 0.4 mg/dL (0.2-1); TOT PROT 6.6 g/dl (6.4-8.2)
[2023-11-13] MEDS: TAMSULOSIN HCL 0.4 MG CAP PO SCH (07:42)
[2023-11-13 08:59] LABS: ANISOCYTOSIS 1+; MACROCYTOSIS 0
[2023-11-13] MEDS: FUROSEMIDE 40 MG/4 ML INJECTABLE VIAL IVPUSH SCH (09:29)
[2023-11-13] MEDS: amLODIPine BESYLATE 5 MG TABLET (FP) PO SCH (09:31)
[2023-11-13] MEDS: ASPIRIN COATED 81 MG TABLET.EC PO SCH (09:31)
[2023-11-13] MEDS: SERTRALINE HCL 25 MG TABLET (FP) PO SCH (09:31)
[2023-11-13] MEDS: LABETALOL HCL 100 MG TABLET (FP) PO SCH ×2 (09:31→21:36)
[2023-11-13] MEDS: ATORVASTATIN CA 20 MG TABLET (FP) PO SCH (21:41)
[2023-11-14] MEDS: hydrALAZINE HCL 10 MG TABLET PO SCH ×3 (05:45→21:18)
[2023-11-14] MEDS: INSULIN SLIDING SCALE (NOVOLOG) 1 VIAL SQ SCH ×4 (06:54→21:22)
[2023-11-14] MEDS: TAMSULOSIN HCL 0.4 MG CAP PO SCH (08:06)
[2023-11-14] MEDS: LABETALOL HCL 100 MG TABLET (FP) PO SCH ×3 (09:04→21:24)
[2023-11-14] MEDS: amLODIPine BESYLATE 5 MG TABLET (FP) PO SCH (09:04)
[2023-11-14] MEDS: ASPIRIN COATED 81 MG TABLET.EC PO SCH (09:04)
[2023-11-14] MEDS: SERTRALINE HCL 25 MG TABLET (FP) PO SCH (09:04)
[2023-11-14] MEDS: FUROSEMIDE 40 MG/4 ML INJECTABLE VIAL IVPUSH SCH (09:04)
[2023-11-14] MEDS: ATORVASTATIN CA 20 MG TABLET (FP) PO SCH (21:14)
[2023-11-15] MEDS: hydrALAZINE HCL 10 MG TABLET PO SCH ×3 (06:28→21:14)
[2023-11-15] MEDS: INSULIN SLIDING SCALE (NOVOLOG) 1 VIAL SQ SCH ×4 (06:29→21:15)
[2023-11-15 07:59] LABS: HEMATOCRIT 30.3 % (35.4-49); HEMOGLOBIN 9.2 GM/dL (11.7-16.9); MCH 22.6 pg (25.7-33.7); MCHC 30.2 g/dl (32.0-35.9); MEAN CELL VOLUME 74.9 fl (80-96); MEAN PLT VOLUME 8.6 fl (7.5-11.1); PLATELET COUNT 199 10^3/uL (134-434); RBC 4.04 M/mm3 (4.00-5.60); RDW 17.5 % (11.9-15.9); WHITE BLOOD COUNT 4.1 K/mm3 (4.0-10.0)
[2023-11-15] MEDS: FUROSEMIDE 40 MG/4 ML INJECTABLE VIAL IVPUSH SCH (09:00)
[2023-11-15] MEDS: ASPIRIN COATED 81 MG TABLET.EC PO SCH (09:00)
[2023-11-15] MEDS: SERTRALINE HCL 25 MG TABLET (FP) PO SCH (09:00)
[2023-11-15] MEDS: TAMSULOSIN HCL 0.4 MG CAP PO SCH (09:00)
[2023-11-15] MEDS: amLODIPine BESYLATE 5 MG TABLET (FP) PO SCH (09:00)
[2023-11-15] MEDS: LABETALOL HCL 100 MG TABLET (FP) PO SCH ×2 (09:00→21:14)
[2023-11-15 09:26] LABS: POTASSIUM 3.9 mmol/L (3.5-5.1)
[2023-11-15 09:28] LABS: ANISOCYTOSIS 0; HELMET CELLS 0; HOWELL-JOLLY BODIES 0; MACROCYTOSIS 0; OVALOCYTE 0; ROULEAU 0; SICKELED CELLS 0; TARGET CELLS 0; TEAR DROP CELLS 0; TOXIC GRANULATION 0
[2023-11-15 09:34] LABS: BLOOD UREA NITROGEN 36.8 mg/dL (7-18)
[2023-11-15 09:35] LABS: CALCIUM 8.6 mg/dL (8.5-10.1)
[2023-11-15 09:36] LABS: ALBUMIN 2.4 g/dl (3.4-5.0)
[2023-11-15 09:39] LABS: CREATININE 1.8 mg/dL (0.55-1.3)
[2023-11-15 09:40] LABS: BILIRUBIN,TOTAL 0.5 mg/dL (0.2-1); TOT PROT 7.2 g/dl (6.4-8.2)
[2023-11-15 17:36] LABS: EPI CELLS 30 /uL (0-25.1); HYALINE CASTS 1 /uL (0-3.1); URINE APPEARANCE CLEAR; URINE BACTERIA >9,000 /uL (0-1359); URINE BILIRUBIN NEGATIVE (NEGATIVE); URINE COLOR YELLOW; URINE GLUCOSE (UA) NEGATIVE (NEGATIVE); URINE KETONE NEGATIVE (NEGATIVE); URINE LEUK ESTERASE 1+ (NEGATIVE); URINE NITRITE NEGATIVE (NEGATIVE); URINE PROTEIN 2+ (NEGATIVE); URINE RBC 14 /uL (0-23.9); URINE UROBILINOGEN 0.2 mg/dL (0.2-1.0); URINE WBC 98 /uL (0-25.8)
[2023-11-15] MEDS: ATORVASTATIN CA 20 MG TABLET (FP) PO SCH (21:14)
[2023-11-16] MEDS: INSULIN SLIDING SCALE (NOVOLOG) 1 VIAL SQ SCH ×4 (06:20→23:57)
[2023-11-16] MEDS: hydrALAZINE HCL 10 MG TABLET PO SCH ×3 (06:23→22:57)
[2023-11-16] MEDS: LABETALOL HCL 100 MG TABLET (FP) PO SCH ×2 (09:05→22:58)
[2023-11-16] MEDS: FUROSEMIDE 40 MG/4 ML INJECTABLE VIAL IVPUSH SCH (09:05)
[2023-11-16] MEDS: TAMSULOSIN HCL 0.4 MG CAP PO SCH (09:05)
[2023-11-16] MEDS: amLODIPine BESYLATE 5 MG TABLET (FP) PO SCH (09:05)
[2023-11-16] MEDS: SERTRALINE HCL 25 MG TABLET (FP) PO SCH (09:05)
[2023-11-16] MEDS: ASPIRIN COATED 81 MG TABLET.EC PO SCH (09:05)
[2023-11-16] MEDS: POLYETHYLENE GLYCOL (HEALTHYLAX) 3350 17 GM PACKET PO SCH (15:44)
[2023-11-16] MEDS: ATORVASTATIN CA 20 MG TABLET (FP) PO SCH (22:57)
[2023-11-17] MEDS: INSULIN SLIDING SCALE (NOVOLOG) 1 VIAL SQ SCH ×4 (06:26→21:25)
[2023-11-17] MEDS: hydrALAZINE HCL 10 MG TABLET PO SCH ×3 (06:53→21:17)
[2023-11-17] MEDS ORDERED: FUROSEMIDE 40 MG/4 ML INJECTABLE VIAL IVPUSH SCH (10:00)
[2023-11-17] MEDS: SERTRALINE HCL 25 MG TABLET (FP) PO SCH (10:38)
[2023-11-17] MEDS: TAMSULOSIN HCL 0.4 MG CAP PO SCH (10:38)
[2023-11-17] MEDS: amLODIPine BESYLATE 5 MG TABLET (FP) PO SCH (10:38)
[2023-11-17] MEDS: LABETALOL HCL 100 MG TABLET (FP) PO SCH ×2 (10:38→21:17)
[2023-11-17] MEDS: ASPIRIN COATED 81 MG TABLET.EC PO SCH (10:38)
[2023-11-17] MEDS: POLYETHYLENE GLYCOL (HEALTHYLAX) 3350 17 GM PACKET PO SCH (10:38)
[2023-11-17 16:12] VITALS: BMI 29.8
[2023-11-17] MEDS ORDERED: guaiFENesin/D-M SUGAR-FREE/ACLHOL-FREE 5 ML UNIT DOSE PO PRN (18:39)
[2023-11-17] MEDS: ATORVASTATIN CA 20 MG TABLET (FP) PO SCH (21:18)
[2023-11-17 23:31] VITALS: RESP 20
[2023-11-18] MEDS: TORSEMIDE 20 MG TABLET (FP) PO SCH ×2 (06:02→14:38)
[2023-11-18] MEDS: hydrALAZINE HCL 10 MG TABLET PO SCH ×2 (06:02→14:38)
[2023-11-18] MEDS: INSULIN SLIDING SCALE (NOVOLOG) 1 VIAL SQ SCH ×2 (06:03→12:09)
[2023-11-18 06:28] VITALS: BP 150/73; PULSE 62; TEMP 97.7
[2023-11-18] MEDS: ASPIRIN COATED 81 MG TABLET.EC PO SCH (09:55)
[2023-11-18] MEDS: POLYETHYLENE GLYCOL (HEALTHYLAX) 3350 17 GM PACKET PO SCH (09:56)
[2023-11-18] MEDS: amLODIPine BESYLATE 5 MG TABLET (FP) PO SCH (09:56)
[2023-11-18] MEDS: SERTRALINE HCL 25 MG TABLET (FP) PO SCH (09:56)
[2023-11-18] MEDS: TAMSULOSIN HCL 0.4 MG CAP PO SCH (09:56)
[2023-11-18] MEDS: LABETALOL HCL 100 MG TABLET (FP) PO SCH (09:56)
== END 2023-11-18 15:55 | disposition home or self-care (01) | DRG 194 ==
LOC: JER 12:19 → JERBED 17:23 → J4W 11-11 21:42 → J5S 11-16 18:08
PROVIDERS: ADMIT Internal Medicine; ATTEND Internal Medicine
DX: I13.0 Hypertensive heart and chronic kidney disease with heart failure and stage 1 through stage 4 chronic kidney disease, or unspecified chronic kidney disease (principal); I25.10 Atherosclerotic heart disease of native coronary artery without angina pectoris; E11.51 Type 2 diabetes mellitus with diabetic peripheral angiopathy without gangrene; D64.9 Anemia, unspecified; E78.5 Hyperlipidemia, unspecified; E11.22 Type 2 diabetes mellitus with diabetic chronic kidney disease; N18.9 Chronic kidney disease, unspecified; I50.9 Heart failure, unspecified
CPT/HCPCS: 36415; 71045-TC-FY; 71046-TC-FY; 80048; 80053; 81003; 82962; 83880; 84484; 85025; 85610; 85730; 87086; 87186; 93005; 93010; 93970-TC; 97116-GP; 97162-GP; 99285-25

== ENCOUNTER 2024-01-22 14:45 | Inpatient (IN) | payer OTHER ==
[2024-01-22 16:11] LABS: HEMOGLOBIN 9.6 GM/dL (11.7-16.9); MCH 22.6 pg (25.7-33.7); MCHC 30.1 g/dl (32.0-35.9); MEAN CELL VOLUME 75.3 fl (80-96); MEAN PLT VOLUME 9.1 fl (7.5-11.1); PLATELET COUNT 71 10^3/uL (134-434); RBC 4.25 M/mm3 (4.00-5.60); RDW 20.8 % (11.9-15.9)
[2024-01-22 16:15] LABS: VENOUS BASE EXCESS -1.2 mmol/L (-2-2); VENOUS O2 SATURATION 18.9 % (70-80); VENOUS PH 7.213 (7.310-7.410)
[2024-01-22 16:16] LABS: VENOUS PCO2 71.2 mmHg (38-52)
[2024-01-22 16:21] LABS: INR 1.1 (0.83-1.09); PROTHROMBIN TIME (PATIENT) 12.8 SEC (9.7-13.0)
[2024-01-22 16:23] LABS: ACTIVATED PTT 54.3 SECONDS (25.2-36.5)
[2024-01-22 16:29] LABS: POTASSIUM 4.9 mmol/L (3.5-5.1)
[2024-01-22 16:31] LABS: ALBUMIN 2.6 g/dl (3.4-5.0); BLOOD UREA NITROGEN 49.1 mg/dL (7-18); CALCIUM 8.4 mg/dL (8.5-10.1); MAGNESIUM 2.8 mg/dL (1.8-2.4)
[2024-01-22 16:34] LABS: CREATININE 2.8 mg/dL (0.55-1.3)
[2024-01-22 16:36] LABS: BILIRUBIN,TOTAL 0.3 mg/dL (0.2-1)
[2024-01-22 16:39] LABS: N-TERMINAL BNP 1609.8 pg/ml (5-450)
[2024-01-22 16:58] LABS: ANISOCYTOSIS 1+; MACROCYTOSIS 0; TARGET CELLS 1+
[2024-01-22] MEDS ORDERED: VANCOMYCIN 1 GRAM (PRE-DOCKED) 1,000 MG/250 ML BAG IVPB ONE (18:13)
[2024-01-22] MEDS ORDERED: PIPERACILLIN/TAZOB 4.5 GM 4.5 GM/100 ML BAG IVPB ONE (18:13)
[2024-01-22] MEDS: VANCOMYCIN/WATER 1250 MG 1,250 MG/250 ML BAG IVPB ONE (18:22)
[2024-01-22] MEDS: PIPERACILLIN/TAZOB 4.5 GM 4.5 GM in DEXTROSE 5%-WATER 100 ML IVPB ONE (18:56)
[2024-01-22] MEDS: VANCOMYCIN 1,000 MG in DEXTROSE 5%-WATER - 250 ML IVPB ONE (18:56)
[2024-01-22 18:57] LABS: VENOUS BASE EXCESS -3.9 mmol/L (-2-2); VENOUS O2 SATURATION 31.7 % (70-80)
[2024-01-22 18:59] LABS: VENOUS PH 7.17 (7.310-7.410)
[2024-01-22 19:00] LABS: VENOUS PCO2 71.8 mmHg (38-52)
[2024-01-22] MEDS ORDERED: LIDOCAINE HCL 2% JELLY 11 ML TP ONE (19:05)
[2024-01-22] MEDS ORDERED: FUROSEMIDE 40 MG/4 ML INJECTABLE VIAL ONE (20:28)
[2024-01-22] MEDS: FUROSEMIDE 40 MG/4 ML INJECTABLE VIAL IVPUSH ONE ×2 (20:32→23:44)
[2024-01-22 20:34] LABS: VENOUS BASE EXCESS -3.3 mmol/L (-2-2); VENOUS O2 SATURATION 92.5 % (70-80); VENOUS PCO2 61.7 mmHg (38-52); VENOUS PH 7.223 (7.310-7.410)
[2024-01-22 21:42] LABS: EPI CELLS 10 /uL (0-25.1); HYALINE CASTS 0 /uL (0-3.1); URINE APPEARANCE CLEAR; URINE BILIRUBIN NEGATIVE (NEGATIVE); URINE COLOR DK YELLOW; URINE GLUCOSE (UA) NEGATIVE (NEGATIVE); URINE KETONE TRACE (NEGATIVE); URINE LEUK ESTERASE 1+ (NEGATIVE); URINE NITRITE POSITIVE (NEGATIVE); URINE PROTEIN 4+ (NEGATIVE); URINE RBC 64 /uL (0-23.9); URINE UROBILINOGEN 0.2 mg/dL (0.2-1.0); URINE WBC 1 /uL (0-25.8)
[2024-01-22 21:46] LABS: URINE BACTERIA 3312.7 /uL (0-1359)
[2024-01-23] MEDS: DEXMEDETOMIDINE PREMIX 400 MCG/100 ML BAG IVPB SCH (00:52)
[2024-01-23] MEDS: PIPERACILLIN/TAZOB 2.25 GM 2.25 GM in DEXTROSE 5%-WATER - 50 ML IVPB SCH (02:04)
[2024-01-23] MEDS: HYDROmorphone HCl 2 MG/ML VIAL IVPUSH PRN (03:27)
[2024-01-23] MEDS: NOREPINEPHRINE BITARTRATE 4,000 MCG in DEXTROSE 5%-WATER - 496 ML IV SCH (04:00)
[2024-01-23] MEDS ORDERED: NOREPINEPHRINE BITARTRATE 4 MG/4 ML ML IV ONE (04:03)
[2024-01-23] MEDS: NOREPINEPHRINE BITARTRATE/D5W 8 MG/250 ML BAG IVPB SCH (04:15)
[2024-01-23 06:16] LABS: ARTERIAL BLD GAS O2 SATURATION 98.2 % (95-98); ARTERIAL BLOOD GAS BASE EXCESS -3.8 mmol/L (-2-2); ARTERIAL BLOOD GAS PO2 159.3 mmHg (80-100)
[2024-01-23 06:19] LABS: ALLENS TEST POSITIVE
[2024-01-23 06:20] LABS: VENT MODE S/T; VENT RATE 20
[2024-01-23] MEDS ORDERED: NALOXONE HCL 0.4 MG/ML VIAL ONE (06:35)
[2024-01-23] MEDS ORDERED: RAPID SEQUENCE INTUBATION KIT NR ONE (06:39)
[2024-01-23] MEDS: NALOXONE HCL (KLOXXADO) 8 MG SPRAY NS SCH (06:45)
[2024-01-23] MEDS: ETOMIDATE 40 MG/20 ML VIAL IVPUSH ONE (07:00)
[2024-01-23] MEDS: ROCURONIUM BROMIDE 50 MG/5 ML VIAL IV ONE (07:00)
[2024-01-23 07:01] LABS: HEMATOCRIT 26.3 % (35.4-49); HEMOGLOBIN 7.6 GM/dL (11.7-16.9); MCH 22.1 pg (25.7-33.7); MCHC 28.7 g/dl (32.0-35.9); MEAN PLT VOLUME 9.3 fl (7.5-11.1); RBC 3.42 M/mm3 (4.00-5.60); RDW 20.3 % (11.9-15.9); WHITE BLOOD COUNT 13.3 K/mm3 (4.0-10.0)
[2024-01-23 07:10] LABS: INR 1.17 (0.83-1.09); PROTHROMBIN TIME (PATIENT) 13.6 SEC (9.7-13.0)
[2024-01-23 07:12] LABS: ACTIVATED PTT 49.2 SECONDS (25.2-36.5)
[2024-01-23 07:22] LABS: POTASSIUM 5.4 mmol/L (3.5-5.1)
[2024-01-23 07:25] LABS: BLOOD UREA NITROGEN 51.2 mg/dL (7-18); MAGNESIUM 2.4 mg/dL (1.8-2.4)
[2024-01-23 07:27] LABS: PHOSPHOROUS 6.6 mg/dL (2.5-4.9)
[2024-01-23] MEDS ORDERED: FENTANYL IVPB 500 MCG/100 ML BAG IVPB SCH (08:00)
[2024-01-23] MEDS ORDERED: NALOXONE HCL 0.4 MG/ML VIAL IVPUSH SCH (08:18)
[2024-01-23] MEDS: PROPOFOL 1,000,000 MCG/100 ML VIAL IVPB SCH (08:23)
[2024-01-23 08:39] LABS: ARTERIAL BLD GAS O2 SATURATION 98.5 % (95-98); ARTERIAL BLOOD GAS BASE EXCESS 0.1 mmol/L (-2-2); ARTERIAL BLOOD GAS PO2 132.4 mmHg (80-100)
[2024-01-23 08:51] LABS: ALLENS TEST POSITIVE
[2024-01-23 08:52] LABS: VENT MODE AC; VENT RATE 18
[2024-01-23] MEDS: FENTANYL NS IVPB 500 MCG/100 ML BAG IVPB SCH (09:25)
[2024-01-23] MEDS: MUPIROCIN 2% TOPICAL OINTMENT FOR DECOLONIZATION NS SCH (09:52)
[2024-01-23 10:38] LABS: ANISOCYTOSIS 0; HELMET CELLS 0; HOWELL-JOLLY BODIES 0; MACROCYTOSIS 0; OVALOCYTE 0; ROULEAU 0; SICKELED CELLS 0; TARGET CELLS 0; TEAR DROP CELLS 0; TOXIC GRANULATION 0
[2024-01-23 10:40] LABS: PLATELET COUNT 80 10^3/uL (134-434)
[2024-01-23] MEDS: HEPARIN NA (PORCINE) 5,000 UNITS/ML 1ML VIAL SQ SCH (11:00)
[2024-01-23] MEDS: CHLORHEXIDINE GLUCONATE 4% CLEANSER FOR DECOLONIZATION TP SCH (21:57)
[2024-01-24 06:55] LABS: ARTERIAL BLD GAS O2 SATURATION 98.6 % (95-98); ARTERIAL BLOOD GAS BASE EXCESS 0.5 mmol/L (-2-2); ARTERIAL BLOOD GAS pH 7.379 (7.350-7.450)
[2024-01-24 06:56] LABS: ALLENS TEST POSITIVE
[2024-01-24 06:57] LABS: VENT MODE A/C; VENT RATE 18
[2024-01-24 08:09] LABS: POTASSIUM 5.2 mmol/L (3.5-5.1)
[2024-01-24 08:12] LABS: CALCIUM 8.1 mg/dL (8.5-10.1)
[2024-01-24 08:13] LABS: MAGNESIUM 2.4 mg/dL (1.8-2.4)
[2024-01-24 08:16] LABS: CREATININE 3.6 mg/dL (0.55-1.3); PHOSPHOROUS 4.7 mg/dL (2.5-4.9)
[2024-01-24 08:50] LABS: HEMATOCRIT 23.3 % (35.4-49); HEMOGLOBIN 7.3 GM/dL (11.7-16.9); MCH 22.8 pg (25.7-33.7); MCHC 31.3 g/dl (32.0-35.9); MEAN CELL VOLUME 72.9 fl (80-96); MEAN PLT VOLUME 9.5 fl (7.5-11.1); RBC 3.19 M/mm3 (4.00-5.60); RDW 20.3 % (11.9-15.9); WHITE BLOOD COUNT 10.9 K/mm3 (4.0-10.0)
[2024-01-24 10:40] LABS: PLATELET COUNT 58 10^3/uL (134-434)
[2024-01-24] MEDS: PIPERACILLIN/TAZOB 2.25 GM 2.25 GM in DEXTROSE 5%-WATER - 50 ML IVPB SCH (21:47)
[2024-01-25 01:52] LABS: EPI CELLS 4 /uL (0-25.1); HYALINE CASTS 0 /uL (0-3.1); URINE APPEARANCE TURBID; URINE BACTERIA 0 /uL (0-1359); URINE BILIRUBIN NEGATIVE (NEGATIVE); URINE COLOR YELLOW; URINE GLUCOSE (UA) NEGATIVE (NEGATIVE); URINE KETONE NEGATIVE (NEGATIVE); URINE LEUK ESTERASE 2+ (NEGATIVE); URINE NITRITE NEGATIVE (NEGATIVE); URINE PROTEIN 2+ (NEGATIVE); URINE RBC 4189 /uL (0-23.9); URINE UROBILINOGEN 0.2 mg/dL (0.2-1.0); URINE WBC 110 /uL (0-25.8)
[2024-01-25 07:38] LABS: HEMATOCRIT 23.7 % (35.4-49); MCH 21.9 pg (25.7-33.7); MCHC 29.2 g/dl (32.0-35.9); MEAN PLT VOLUME 10.1 fl (7.5-11.1); PLATELET COUNT 67 10^3/uL (134-434); RBC 3.16 M/mm3 (4.00-5.60); RDW 20.1 % (11.9-15.9); WHITE BLOOD COUNT 14.6 K/mm3 (4.0-10.0)
[2024-01-25 08:04] LABS: HEMOGLOBIN 6.9 GM/dL (11.7-16.9)
[2024-01-25 08:09] LABS: POTASSIUM 5.4 mmol/L (3.5-5.1)
[2024-01-25 08:10] LABS: CALCIUM 8.5 mg/dL (8.5-10.1)
[2024-01-25 08:11] LABS: BLOOD UREA NITROGEN 64.1 mg/dL (7-18); MAGNESIUM 2.4 mg/dL (1.8-2.4)
[2024-01-25 08:14] LABS: CREATININE 3.4 mg/dL (0.55-1.3); PHOSPHOROUS 6.1 mg/dL (2.5-4.9)
[2024-01-25] MEDS: SODIUM ZIRCONIUM CYCLOSILICATE (LOKELMA) 5 GM PACKET PO ONE (11:14)
[2024-01-25] MEDS: ACETAMINOPHEN 1000 MG/100 ML BAG IVPB ONE (14:33)
[2024-01-25] MEDS: PIPERACILLIN/TAZOB 2.25 GM 2.25 GM in DEXTROSE 5%-WATER - 50 ML IVPB SCH (15:35)
[2024-01-25 18:09] LABS: HEMATOCRIT 24.7 % (35.4-49); HEMOGLOBIN 7.6 GM/dL (11.7-16.9); MCHC 30.7 g/dl (32.0-35.9); PLATELET COUNT 76 10^3/uL (134-434); RBC 3.29 M/mm3 (4.00-5.60); WHITE BLOOD COUNT 12.7 K/mm3 (4.0-10.0)
[2024-01-25 18:15] LABS: INR 1.25 (0.83-1.09); PROTHROMBIN TIME (PATIENT) 14.5 SEC (9.7-13.0)
[2024-01-25 18:17] LABS: ACTIVATED PTT 40.3 SECONDS (25.2-36.5)
[2024-01-26 06:03] LABS: ARTERIAL BLOOD GAS BASE EXCESS 0.1 mmol/L (-2-2); ARTERIAL BLOOD GAS PO2 77.3 mmHg (80-100); ARTERIAL BLOOD GAS pH 7.369 (7.350-7.450)
[2024-01-26 06:41] LABS: ALLENS TEST POSITIVE
[2024-01-26 07:24] LABS: HEMATOCRIT 23.9 % (35.4-49); HEMOGLOBIN 7.5 GM/dL (11.7-16.9); MCH 23.5 pg (25.7-33.7); MCHC 31.5 g/dl (32.0-35.9); MEAN CELL VOLUME 74.6 fl (80-96); MEAN PLT VOLUME 8.6 fl (7.5-11.1); PLATELET COUNT 79 10^3/uL (134-434); RDW 19.9 % (11.9-15.9); WHITE BLOOD COUNT 10.9 K/mm3 (4.0-10.0)
[2024-01-26 07:44] LABS: CALCIUM 8.5 mg/dL (8.5-10.1)
[2024-01-26 07:45] LABS: BLOOD UREA NITROGEN 69.3 mg/dL (7-18)
[2024-01-26 07:48] LABS: CREATININE 3.5 mg/dL (0.55-1.3)
[2024-01-26 07:50] LABS: BILIRUBIN,TOTAL 0.8 mg/dL (0.2-1); TOT PROT 6.3 g/dl (6.4-8.2)
[2024-01-26 08:19] LABS: ALBUMIN 1.7 g/dl (3.4-5.0)
[2024-01-26] MEDS ORDERED: PIPERACILLIN/TAZOB 2.25 GM 2.25 GM in DEXTROSE 5%-WATER - 50 ML IVPB SCH (21:00)
[2024-01-26] MEDS: HEPARIN NA (PORCINE) 5,000 UNITS/ML 1ML VIAL SQ SCH (21:28)
[2024-01-26] MEDS: PIPERACILLIN/TAZOB 2.25 GM 2.25 GM in DEXTROSE 5%-WATER - 50 ML IVPB SCH (21:28)
[2024-01-26] MEDS: CHLORHEXIDINE GLUCONATE 4% CLEANSER FOR DECOLONIZATION TP SCH (21:28)
[2024-01-26] MEDS: MUPIROCIN 2% TOPICAL OINTMENT FOR DECOLONIZATION NS SCH (21:29)
[2024-01-27 08:31] LABS: HEMATOCRIT 24.4 % (35.4-49); HEMOGLOBIN 7.7 GM/dL (11.7-16.9); MCH 23.5 pg (25.7-33.7); MCHC 31.4 g/dl (32.0-35.9); MEAN CELL VOLUME 74.9 fl (80-96); MEAN PLT VOLUME 8.5 fl (7.5-11.1); PLATELET COUNT 105 10^3/uL (134-434); RBC 3.26 M/mm3 (4.00-5.60); RDW 20.3 % (11.9-15.9); WHITE BLOOD COUNT 8.4 K/mm3 (4.0-10.0)
[2024-01-27 09:38] LABS: POTASSIUM 4.9 mmol/L (3.5-5.1)
[2024-01-27 09:41] LABS: CALCIUM 8.6 mg/dL (8.5-10.1)
[2024-01-27 09:42] LABS: ALBUMIN 1.7 g/dl (3.4-5.0); MAGNESIUM 2.8 mg/dL (1.8-2.4)
[2024-01-27 09:45] LABS: CREATININE 3.4 mg/dL (0.55-1.3); PHOSPHOROUS 4.5 mg/dL (2.5-4.9)
[2024-01-27 09:46] LABS: BILIRUBIN,TOTAL 0.9 mg/dL (0.2-1)
[2024-01-27 09:47] LABS: TOT PROT 6.4 g/dl (6.4-8.2)
[2024-01-27] MEDS: DEXTROSE 5%-WATER - 1,000 ML IV SCH (13:31)
[2024-01-28] MEDS: ACETAMINOPHEN 1000 MG/100 ML BAG IVPB PRN (09:18)
[2024-01-28] MEDS: FUROSEMIDE 40 MG/4 ML INJECTABLE VIAL IVPUSH ONE (09:19)
[2024-01-28 09:41] LABS: BASO % 0.4 % (0-2.0); EOS % 0.5 % (0-4.5); HEMATOCRIT 24.7 % (35.4-49); HEMOGLOBIN 7.8 GM/dL (11.7-16.9); MCH 23.9 pg (25.7-33.7); MCHC 31.7 g/dl (32.0-35.9); MEAN CELL VOLUME 75.5 fl (80-96); MEAN PLT VOLUME 8.2 fl (7.5-11.1); MONO % 14.5 % (3.8-10.2); NEUT % 78.6 % (42.8-82.8); PLATELET COUNT 115 10^3/uL (134-434); RBC 3.27 M/mm3 (4.00-5.60); RDW 20.2 % (11.9-15.9); WHITE BLOOD COUNT 8.5 K/mm3 (4.0-10.0)
[2024-01-28 09:45] LABS: POTASSIUM 4.8 mmol/L (3.5-5.1)
[2024-01-28 09:49] LABS: ALBUMIN 1.8 g/dl (3.4-5.0); BLOOD UREA NITROGEN 59.2 mg/dL (7-18); CALCIUM 8.3 mg/dL (8.5-10.1)
[2024-01-28 09:52] LABS: CREATININE 3.3 mg/dL (0.55-1.3)
[2024-01-28 09:53] LABS: TOT PROT 6.7 g/dl (6.4-8.2)
[2024-01-28 09:54] LABS: BILIRUBIN,TOTAL 0.8 mg/dL (0.2-1)
[2024-01-28] MEDS: MEROPENEM 1 GM in DEXTROSE 5%-WATER 100 ML IVPB ONE (15:16)
[2024-01-28] MEDS: VANCOMYCIN/WATER FOR INJ (PEG) 1,000 MG/200 ML BAG IVPB ONE (15:59)
[2024-01-28] MEDS: DEXTROSE 5%-WATER - 1,000 ML IV SCH (16:59)
[2024-01-28] MEDS: HEPARIN NA (PORCINE) 5,000 UNITS/ML 1ML VIAL SQ SCH (22:28)
[2024-01-29 08:00] LABS: BASO % 0.6 % (0-2.0); EOS % 0.3 % (0-4.5); HEMATOCRIT 23.6 % (35.4-49); HEMOGLOBIN 7.4 GM/dL (11.7-16.9); LYMPH % 4.9 % (8-40); MCH 23.8 pg (25.7-33.7); MCHC 31.2 g/dl (32.0-35.9); MEAN CELL VOLUME 76.4 fl (80-96); MEAN PLT VOLUME 8.3 fl (7.5-11.1); MONO % 14.1 % (3.8-10.2); NEUT % 80.1 % (42.8-82.8); PLATELET COUNT 108 10^3/uL (134-434); RBC 3.09 M/mm3 (4.00-5.60); RDW 20.2 % (11.9-15.9); WHITE BLOOD COUNT 11.7 K/mm3 (4.0-10.0)
[2024-01-29 08:07] LABS: ALBUMIN 1.8 g/dl (3.4-5.0); BLOOD UREA NITROGEN 64.3 mg/dL (7-18)
[2024-01-29 08:10] LABS: CREATININE 3.3 mg/dL (0.55-1.3)
[2024-01-29 08:12] LABS: BILIRUBIN,TOTAL 0.8 mg/dL (0.2-1); TOT PROT 6.4 g/dl (6.4-8.2)
[2024-01-29] MEDS: MEROPENEM 500 MG in DEXTROSE 5%-WATER 100 ML IVPB SCH (10:36)
[2024-01-29 12:13] VITALS: BMI 24.5
[2024-01-29] MEDS: DEXTROSE 5%-WATER - 1,000 ML IV SCH (16:33)
[2024-01-30] MEDS: IRON SUCROSE INJECTION 200 MG in SODIUM CHLORIDE 100 ML IVPB ONE (14:34)
[2024-01-30] MEDS ORDERED: DEXTROSE 5%-WATER - 1,000 ML IV SCH (15:02)
[2024-01-30 15:11] LABS: POTASSIUM 4.2 mmol/L (3.5-5.1)
[2024-01-30 15:13] LABS: CALCIUM 8.5 mg/dL (8.5-10.1)
[2024-01-30 15:14] LABS: ALBUMIN 1.8 g/dl (3.4-5.0); BLOOD UREA NITROGEN 61.1 mg/dL (7-18)
[2024-01-30 15:17] LABS: CREATININE 2.8 mg/dL (0.55-1.3)
[2024-01-30 15:18] LABS: BILIRUBIN,TOTAL 0.4 mg/dL (0.2-1)
[2024-01-30 15:19] LABS: TOT PROT 6.6 g/dl (6.4-8.2)
[2024-01-30] MEDS: DEXTROSE 5%-WATER - 1,000 ML IV SCH (15:58)
[2024-01-30] MEDS: HEPARIN NA (PORCINE) 5,000 UNITS/ML 1ML VIAL SQ SCH (22:20)
[2024-01-30] MEDS: MEROPENEM 500 MG in DEXTROSE 5%-WATER 100 ML IVPB SCH (22:20)
[2024-01-31] MEDS: ACETAMINOPHEN 1000 MG/100 ML BAG IVPB ONE ×2 (00:58→08:15)
[2024-01-31 10:06] LABS: BASO % 0.4 % (0-2.0); EOS % 2.4 % (0-4.5); HEMATOCRIT 23.4 % (35.4-49); LYMPH % 6.7 % (8-40); MCH 23.5 pg (25.7-33.7); MCHC 29.9 g/dl (32.0-35.9); MEAN CELL VOLUME 78.6 fl (80-96); MEAN PLT VOLUME 9.2 fl (7.5-11.1); MONO % 8.8 % (3.8-10.2); NEUT % 81.7 % (42.8-82.8); PLATELET COUNT 173 10^3/uL (134-434); RBC 2.97 M/mm3 (4.00-5.60); RDW 19.9 % (11.9-15.9); WHITE BLOOD COUNT 6.7 K/mm3 (4.0-10.0)
[2024-01-31 10:26] LABS: POTASSIUM 4.1 mmol/L (3.5-5.1)
[2024-01-31 10:28] LABS: CALCIUM 8.1 mg/dL (8.5-10.1)
[2024-01-31 10:29] LABS: ALBUMIN 1.7 g/dl (3.4-5.0); BLOOD UREA NITROGEN 60.9 mg/dL (7-18)
[2024-01-31 10:32] LABS: CREATININE 2.6 mg/dL (0.55-1.3)
[2024-01-31 10:34] LABS: BILIRUBIN,TOTAL 0.3 mg/dL (0.2-1); TOT PROT 6.3 g/dl (6.4-8.2)
[2024-01-31] MEDS: DEXTROSE 5%-WATER - 1,000 ML IV SCH (15:37)
[2024-02-01 08:35] LABS: BASO % 1.5 % (0-2.0); EOS % 2.2 % (0-4.5); HEMATOCRIT 25.3 % (35.4-49); HEMOGLOBIN 7.7 GM/dL (11.7-16.9); LYMPH % 5.5 % (8-40); MCH 24.5 pg (25.7-33.7); MCHC 30.4 g/dl (32.0-35.9); MEAN CELL VOLUME 80.4 fl (80-96); MONO % 9.1 % (3.8-10.2); NEUT % 81.7 % (42.8-82.8); PLATELET COUNT 248 10^3/uL (134-434); RBC 3.15 M/mm3 (4.00-5.60); RDW 19.3 % (11.9-15.9); WHITE BLOOD COUNT 7.8 K/mm3 (4.0-10.0)
[2024-02-01 08:47] LABS: POTASSIUM 4.1 mmol/L (3.5-5.1)
[2024-02-01 08:50] LABS: CALCIUM 8.3 mg/dL (8.5-10.1)
[2024-02-01 08:51] LABS: ALBUMIN 1.8 g/dl (3.4-5.0); BLOOD UREA NITROGEN 54.9 mg/dL (7-18)
[2024-02-01 08:54] LABS: CREATININE 2.4 mg/dL (0.55-1.3)
[2024-02-01 08:55] LABS: BILIRUBIN,TOTAL 0.4 mg/dL (0.2-1); TOT PROT 6.5 g/dl (6.4-8.2)
[2024-02-01] MEDS: MINERAL OIL/PET HY-PHL TOPICAL OINTMENT 454 GM JAR TP SCH (22:18)
[2024-02-02 08:56] LABS: HEMOGLOBIN 7.3 GM/dL (11.7-16.9); MCH 24.2 pg (25.7-33.7); MCHC 30.4 g/dl (32.0-35.9); MEAN CELL VOLUME 79.7 fl (80-96); MEAN PLT VOLUME 8.7 fl (7.5-11.1); PLATELET COUNT 288 10^3/uL (134-434); RBC 3.01 M/mm3 (4.00-5.60); RDW 18.8 % (11.9-15.9); WHITE BLOOD COUNT 6.3 K/mm3 (4.0-10.0)
[2024-02-02 09:11] LABS: POTASSIUM 4.1 mmol/L (3.5-5.1)
[2024-02-02 09:17] LABS: CALCIUM 8.3 mg/dL (8.5-10.1)
[2024-02-02 09:18] LABS: BLOOD UREA NITROGEN 47.3 mg/dL (7-18)
[2024-02-02] MEDS: BACITRACIN ZINC 15 GM TUBE TOPICAL OINTMENT TP SCH (09:59)
[2024-02-02] MEDS: IRON SUCROSE INJECTION 200 MG in SODIUM CHLORIDE 100 ML IVPB ONE (11:13)
[2024-02-02] MEDS: DEXTROSE 5%-WATER - 1,000 ML IV SCH (21:56)
[2024-02-04] MEDS: amLODIPine BESYLATE 2.5 MG TABLET (FP) PO SCH (09:23)
[2024-02-04] MEDS: TAMSULOSIN HCL 0.4 MG CAP PO SCH (09:24)
[2024-02-04] MEDS: SERTRALINE HCL 25 MG TABLET (FP) PO SCH (09:30)
[2024-02-04 10:07] LABS: MCH 24.3 pg (25.7-33.7); MCHC 30.7 g/dl (32.0-35.9); MEAN CELL VOLUME 79.2 fl (80-96); PLATELET COUNT 352 10^3/uL (134-434); RBC 2.85 M/mm3 (4.00-5.60); RDW 19.1 % (11.9-15.9); WHITE BLOOD COUNT 5.5 K/mm3 (4.0-10.0)
[2024-02-04 10:12] LABS: HEMATOCRIT 22.6 % (35.4-49)
[2024-02-04 10:13] LABS: HEMOGLOBIN 6.9 GM/dL (11.7-16.9)
[2024-02-04 10:15] LABS: POTASSIUM 4.4 mmol/L (3.5-5.1)
[2024-02-04 10:16] LABS: ALBUMIN 1.8 g/dl (3.4-5.0); BLOOD UREA NITROGEN 34.6 mg/dL (7-18)
[2024-02-04 10:20] LABS: CREATININE 1.7 mg/dL (0.55-1.3); TOT PROT 6.2 g/dl (6.4-8.2)
[2024-02-04 10:21] LABS: BILIRUBIN,TOTAL 0.3 mg/dL (0.2-1)
[2024-02-04] MEDS: FUROSEMIDE 40 MG/4 ML INJECTABLE VIAL IVPUSH ONE (11:26)
[2024-02-05 05:34] VITALS: RESP 18
[2024-02-06] MEDS: ASCORBIC ACID 250 MG TABLET (FP) PO SCH (09:56)
[2024-02-06] MEDS: MULTIVITAMINS (DAILY MVI) TABLET (FP) PO SCH (09:56)
[2024-02-07 10:02] LABS: HEMATOCRIT 31.8 % (35.4-49); HEMOGLOBIN 9.9 GM/dL (11.7-16.9); MCH 25.4 pg (25.7-33.7); MCHC 31.1 g/dl (32.0-35.9); MEAN CELL VOLUME 81.7 fl (80-96); MEAN PLT VOLUME 8.8 fl (7.5-11.1); PLATELET COUNT 337 10^3/uL (134-434); RBC 3.89 M/mm3 (4.00-5.60); RDW 18.2 % (11.9-15.9); WHITE BLOOD COUNT 4.6 K/mm3 (4.0-10.0)
[2024-02-07 10:29] LABS: POTASSIUM 4.5 mmol/L (3.5-5.1)
[2024-02-07 10:56] LABS: CREATININE 1.4 mg/dL (0.55-1.3)
[2024-02-07 10:57] LABS: CALCIUM 8.3 mg/dL (8.5-10.1)
[2024-02-07 10:59] LABS: ALBUMIN 1.9 g/dl (3.4-5.0); BLOOD UREA NITROGEN 21.6 mg/dL (7-18)
[2024-02-07 11:06] LABS: BILIRUBIN,TOTAL 0.3 mg/dL (0.2-1); TOT PROT 6.3 g/dl (6.4-8.2)
[2024-02-08] MEDS ORDERED: DEXTROSE 5%-WATER - 1,000 ML IV SCH (15:01)
[2024-02-08 16:01] VITALS: BP 128/64; PULSE 60; TEMP 97.6
== END 2024-02-08 20:35 | DRG 720 ==
LOC: JER 14:45 → JICU 20:47 → J6S 01-26 16:17 → J4S 01-29 01:38 → J6S 01-30 13:51
PROVIDERS: ADMIT Internal Medicine Pulmonary Disease; ATTEND Family Medicine
PROC: 0BH17EZ Insertion of Endotracheal Airway into Trachea, Via Natural or Artificial Opening (ICD-10-PCS; principal; 2024-01-23)
PROC: 5A1945Z Respiratory Ventilation, 24-96 Consecutive Hours (ICD-10-PCS; 2024-01-23)
PROC: 0HBRXZZ Excision of Toe Nail, External Approach (ICD-10-PCS; 2024-01-29)
PROC: 0HBRXZZ Excision of Toe Nail, External Approach (ICD-10-PCS; 2024-01-29)
PROC: 0HBRXZZ Excision of Toe Nail, External Approach (ICD-10-PCS; 2024-01-29)
PROC: 0HBRXZZ Excision of Toe Nail, External Approach (ICD-10-PCS; 2024-01-29)
PROC: 0HBRXZZ Excision of Toe Nail, External Approach (ICD-10-PCS; 2024-01-29)
PROC: 0HBRXZZ Excision of Toe Nail, External Approach (ICD-10-PCS; 2024-01-29)
PROC: 0HBRXZZ Excision of Toe Nail, External Approach (ICD-10-PCS; 2024-01-29)
PROC: 0HBRXZZ Excision of Toe Nail, External Approach (ICD-10-PCS; 2024-01-29)
PROC: 0HBRXZZ Excision of Toe Nail, External Approach (ICD-10-PCS; 2024-01-29)
PROC: 0HBRXZZ Excision of Toe Nail, External Approach (ICD-10-PCS; 2024-01-29)
DX: A41.89 Other specified sepsis (principal); I13.0 Hypertensive heart and chronic kidney disease with heart failure and stage 1 through stage 4 chronic kidney disease, or unspecified chronic kidney disease; J69.0 Pneumonitis due to inhalation of food and vomit; N32.89 Other specified disorders of bladder; R65.21 Severe sepsis with septic shock; I89.0 Lymphedema, not elsewhere classified; J96.02 Acute respiratory failure with hypercapnia; I50.32 Chronic diastolic (congestive) heart failure; G93.41 Metabolic encephalopathy; N39.0 Urinary tract infection, site not specified; N17.9 Acute kidney failure, unspecified; E78.5 Hyperlipidemia, unspecified; E87.29 Other acidosis; E87.0 Hyperosmolality and hypernatremia; R68.0 Hypothermia, not associated with low environmental temperature; N40.0 Benign prostatic hyperplasia without lower urinary tract symptoms; E11.51 Type 2 diabetes mellitus with diabetic peripheral angiopathy without gangrene; I25.10 Atherosclerotic heart disease of native coronary artery without angina pectoris; K42.9 Umbilical hernia without obstruction or gangrene; E83.39 Other disorders of phosphorus metabolism; D69.6 Thrombocytopenia, unspecified; D64.9 Anemia, unspecified; J96.01 Acute respiratory failure with hypoxia; I87.8 Other specified disorders of veins; B35.1 Tinea unguium; R13.10 Dysphagia, unspecified; I27.20 Pulmonary hypertension, unspecified; I83.018 Varicose veins of right lower extremity with ulcer other part of lower leg; I83.028 Varicose veins of left lower extremity with ulcer other part of lower leg; L97.818 Non-pressure chronic ulcer of other part of right lower leg with other specified severity; L97.828 Non-pressure chronic ulcer of other part of left lower leg with other specified severity; J98.11 Atelectasis; E87.5 Hyperkalemia; E11.22 Type 2 diabetes mellitus with diabetic chronic kidney disease; N18.9 Chronic kidney disease, unspecified; Z91.199 Patient's noncompliance with other medical treatment and regimen due to unspecified reason; R31.0 Gross hematuria; S37.39XA Other injury of urethra, initial encounter; X58.XXXA Exposure to other specified factors, initial encounter; Y93.9 Activity, unspecified; Y92.230 Patient room in hospital as the place of occurrence of the external cause; Y99.9 Unspecified external cause status
CPT/HCPCS: 0241U-QW; 31500; 36415; 36430; 36600; 70450-TC; 71045-TC-FY; 71250-TC; 74176-TC; 76705-TC; 76775-TC; 80048; 80053; 81003; 82010; 82272; 82308; 82436; 82550; 82570; 82728; 82803; 82962; 83036; 83540; 83550; 83605; 83735; 83880; 84100; 84300; 84436; 84443; 84466; 84484; 85025; 85027; 85379; 85384; 85610; 85730; 86850; 86900; 86901; 86922; 87040; 87081; 87086; 87635; 87899; 93005; 93010; 93306-TC; 93970-TC; 94002; 94660; 97116-GP; 97161-GP; 99285-25; G0480; J0131; J1644; J1756; P9038; P9058

== ENCOUNTER 2024-02-08 21:55 | Observation (INO) | payer OTHER ==
[2024-02-08 22:22] VITALS: RESP 20
[2024-02-09 04:05] VITALS: BMI 24.3
[2024-02-09] MEDS: INSULIN ASPART SLIDING SCALE (NOVOLOG) 1 VIAL SQ SCH (07:09)
[2024-02-09] MEDS: MULTIVITAMINS (DAILY MVI) TABLET (FP) PO SCH (09:43)
[2024-02-09] MEDS: SERTRALINE HCL 25 MG TABLET (FP) PO SCH (09:43)
[2024-02-09] MEDS: TAMSULOSIN HCL 0.4 MG CAP PO SCH (09:44)
[2024-02-09] MEDS: amLODIPine BESYLATE 2.5 MG TABLET (FP) PO SCH (09:44)
[2024-02-09] MEDS: ASCORBIC ACID 250 MG TABLET (FP) PO SCH (09:44)
[2024-02-09 15:19] VITALS: BP 140/75; PULSE 69; TEMP 98
== END 2024-02-09 17:54 ==
LOC: JER 21:55 → JERBED 23:48 → J6S 02-09 02:44
PROVIDERS: ADMIT Internal Medicine; ATTEND Family Medicine
DX: Z76.89 Persons encountering health services in other specified circumstances (principal); E78.5 Hyperlipidemia, unspecified; I25.10 Atherosclerotic heart disease of native coronary artery without angina pectoris; I11.0 Hypertensive heart disease with heart failure; I50.9 Heart failure, unspecified; E11.9 Type 2 diabetes mellitus without complications; I50.30 Unspecified diastolic (congestive) heart failure; E11.22 Type 2 diabetes mellitus with diabetic chronic kidney disease; I12.9 Hypertensive chronic kidney disease with stage 1 through stage 4 chronic kidney disease, or unspecified chronic kidney disease; N18.9 Chronic kidney disease, unspecified; I27.20 Pulmonary hypertension, unspecified; N40.0 Benign prostatic hyperplasia without lower urinary tract symptoms; N32.9 Bladder disorder, unspecified; D64.9 Anemia, unspecified; J44.9 Chronic obstructive pulmonary disease, unspecified; I73.9 Peripheral vascular disease, unspecified; K80.20 Calculus of gallbladder without cholecystitis without obstruction
CPT/HCPCS: 82962; 94660; 99285-25; G0378

== ENCOUNTER 2024-02-18 10:02 | Inpatient (IN) | payer OTHER ==
[2024-02-18 11:29] LABS: BASO % 0.7 % (0-2.0); EOS % 0.2 % (0-4.5); HEMATOCRIT 28.4 % (35.4-49); HEMOGLOBIN 8.9 GM/dL (11.7-16.9); LYMPH % 3.4 % (8-40); MCH 24.9 pg (25.7-33.7); MCHC 31.5 g/dl (32.0-35.9); MEAN CELL VOLUME 79.3 fl (80-96); MEAN PLT VOLUME 8.9 fl (7.5-11.1); NEUT % 85.7 % (42.8-82.8); PLATELET COUNT 137 10^3/uL (134-434); RBC 3.58 M/mm3 (4.00-5.60); RDW 18.9 % (11.9-15.9); WHITE BLOOD COUNT 8.8 K/mm3 (4.0-10.0)
[2024-02-18 11:48] LABS: POTASSIUM 4.3 mmol/L (3.5-5.1)
[2024-02-18 11:50] LABS: ACTIVATED PTT 31.3 SECONDS (25.2-36.5); CALCIUM 8.5 mg/dL (8.5-10.1); INR 1.1 (0.83-1.09); PROTHROMBIN TIME (PATIENT) 12.7 SEC (9.7-13.0)
[2024-02-18 11:51] LABS: BLOOD UREA NITROGEN 29.1 mg/dL (7-18)
[2024-02-18 11:55] LABS: BILIRUBIN,TOTAL 0.8 mg/dL (0.2-1); TOT PROT 6.9 g/dl (6.4-8.2)
[2024-02-18 12:05] LABS: ALBUMIN 2.3 g/dl (3.4-5.0)
[2024-02-18] MEDS ORDERED: levETIRAcetam 500 MG/5 ML INJECTION VIAL IVPB ONE (13:17)
[2024-02-18] MEDS: levETIRAcetam 500 MG/5 ML INJECTION VIAL IVPB ONE (13:42)
[2024-02-18 18:05] LABS: EPI CELLS 6 /uL (0-25.1); HYALINE CASTS 0 /uL (0-3.1); PH,URINE 7.5 (5.0-8.0); URINE BACTERIA 39 /uL (0-1359); URINE BILIRUBIN NEGATIVE (NEGATIVE); URINE GLUCOSE (UA) NEGATIVE (NEGATIVE); URINE KETONE NEGATIVE (NEGATIVE); URINE LEUK ESTERASE 2+ (NEGATIVE); URINE NITRITE NEGATIVE (NEGATIVE); URINE PROTEIN 4+ (NEGATIVE); URINE RBC 306 /uL (0-23.9); URINE UROBILINOGEN 0.2 mg/dL (0.2-1.0); URINE WBC 29 /uL (0-25.8)
[2024-02-18 18:42] LABS: URINE COLOR RED
[2024-02-18 18:43] LABS: URINE APPEARANCE TURBID
[2024-02-18] MEDS: CEFTRIAXONE 1,000 GM in DEXTROSE 5%-WATER - 50 ML IVPB ONE (19:30)
[2024-02-18] MEDS: ATORVASTATIN CA 40 MG TABLET (FP) PO SCH (21:43)
[2024-02-18] MEDS: levETIRAcetam 500 MG TABLET (FP) PO SCH (21:43)
[2024-02-18] MEDS: LABETALOL HCL 100 MG TABLET (FP) PO SCH (21:43)
[2024-02-18] MEDS: CEFTRIAXONE 1 GM in DEXTROSE 5%-WATER - 50 ML IVPB ONE (21:51)
[2024-02-18] MEDS: INSULIN ASPART SLIDING SCALE (NOVOLOG) 1 VIAL SQ SCH (21:52)
[2024-02-18] MEDS: ACETAMINOPHEN 325 MG TABLET (FP) PO ONE (22:50)
[2024-02-19 07:52] LABS: BASO % 0.6 % (0-2.0); EOS % 1.2 % (0-4.5); HEMATOCRIT 25.1 % (35.4-49); HEMOGLOBIN 7.7 GM/dL (11.7-16.9); LYMPH % 7.3 % (8-40); MCH 24.9 pg (25.7-33.7); MCHC 30.8 g/dl (32.0-35.9); MEAN CELL VOLUME 80.8 fl (80-96); MEAN PLT VOLUME 8.8 fl (7.5-11.1); MONO % 13.1 % (3.8-10.2); NEUT % 77.8 % (42.8-82.8); PLATELET COUNT 113 10^3/uL (134-434); RDW 18.4 % (11.9-15.9); WHITE BLOOD COUNT 7.8 K/mm3 (4.0-10.0)
[2024-02-19 08:11] LABS: POTASSIUM 3.5 mmol/L (3.5-5.1)
[2024-02-19 08:16] LABS: ALBUMIN 2.2 g/dl (3.4-5.0); BLOOD UREA NITROGEN 36.6 mg/dL (7-18); CALCIUM 8.2 mg/dL (8.5-10.1)
[2024-02-19 08:19] LABS: CREATININE 2.4 mg/dL (0.55-1.3)
[2024-02-19 08:20] LABS: BILIRUBIN,TOTAL 0.6 mg/dL (0.2-1)
[2024-02-19 08:21] LABS: TOT PROT 6.2 g/dl (6.4-8.2)
[2024-02-19] MEDS: POTASSIUM CHLORIDE 10 MEQ in SODIUM CHLORIDE 0.45% 1,000 ML IVPB SCH (09:59)
[2024-02-19] MEDS ORDERED: TAMSULOSIN HCL 0.4 MG CAP PO SCH (10:00)
[2024-02-19] MEDS: amLODIPine BESYLATE 5 MG TABLET (FP) PO SCH (12:50)
[2024-02-19] MEDS: levETIRAcetam 500 MG TABLET (FP) PO SCH ×2 (12:50→22:40)
[2024-02-19] MEDS: TAMSULOSIN HCL 0.4 MG CAP PO SCH (12:50)
[2024-02-19] MEDS: CEFTRIAXONE 1 GM in DEXTROSE 5%-WATER - 50 ML IVPB SCH (12:51)
[2024-02-19] MEDS: SERTRALINE HCL 25 MG TABLET (FP) PO SCH (12:51)
[2024-02-19] MEDS: FINASTERIDE 5 MG TABLET (FP) PO SCH (12:51)
[2024-02-19 14:05] VITALS: BMI 23.0
[2024-02-20] MEDS: ACETAMINOPHEN 1000 MG/100 ML BAG IVPB ONE (08:37)
[2024-02-20 11:20] LABS: BASO % 0.7 % (0-2.0); EOS % 3.1 % (0-4.5); HEMATOCRIT 24.7 % (35.4-49); HEMOGLOBIN 7.7 GM/dL (11.7-16.9); LYMPH % 9.5 % (8-40); MCH 25.1 pg (25.7-33.7); MCHC 31.3 g/dl (32.0-35.9); MEAN CELL VOLUME 80.4 fl (80-96); MEAN PLT VOLUME 8.7 fl (7.5-11.1); MONO % 11.3 % (3.8-10.2); NEUT % 75.4 % (42.8-82.8); PLATELET COUNT 124 10^3/uL (134-434); RBC 3.07 M/mm3 (4.00-5.60); RDW 18.1 % (11.9-15.9); WHITE BLOOD COUNT 5.9 K/mm3 (4.0-10.0)
[2024-02-20] MEDS: IRON SUCROSE INJECTION 200 MG in SODIUM CHLORIDE 100 ML IVPB ONE (17:40)
[2024-02-20] MEDS ORDERED: INSULIN (NOVOLOG) ASPART 100 UNITS/ML 10ML VIAL ONE (21:10)
[2024-02-21 08:38] LABS: BASO % 0.8 % (0-2.0); EOS % 3.6 % (0-4.5); HEMATOCRIT 24.1 % (35.4-49); HEMOGLOBIN 7.5 GM/dL (11.7-16.9); LYMPH % 15.2 % (8-40); MCHC 31.2 g/dl (32.0-35.9); MEAN CELL VOLUME 80.1 fl (80-96); MEAN PLT VOLUME 8.8 fl (7.5-11.1); MONO % 13.2 % (3.8-10.2); NEUT % 67.2 % (42.8-82.8); PLATELET COUNT 118 10^3/uL (134-434); RBC 3.01 M/mm3 (4.00-5.60); RDW 18.4 % (11.9-15.9); WHITE BLOOD COUNT 5.9 K/mm3 (4.0-10.0)
[2024-02-21 08:54] LABS: CALCIUM 8.2 mg/dL (8.5-10.1); POTASSIUM 3.3 mmol/L (3.5-5.1)
[2024-02-21 08:55] LABS: ALBUMIN 2.2 g/dl (3.4-5.0)
[2024-02-21 08:58] LABS: CREATININE 1.8 mg/dL (0.55-1.3)
[2024-02-21 09:00] LABS: BILIRUBIN,TOTAL 0.3 mg/dL (0.2-1); TOT PROT 6.1 g/dl (6.4-8.2)
[2024-02-21] MEDS: POTASSIUM CHLORIDE ORAL LIQUID 20 MEQ/15 ML PO ONE (14:50)
[2024-02-21] MEDS: SENNOSIDES 8.8 MG/5 ML SYRUP PO ONE (21:12)
[2024-02-21] MEDS ORDERED: INSULIN (NOVOLOG) ASPART 100 UNITS/ML 10ML VIAL ONE (21:20)
[2024-02-22 10:09] LABS: BASO % 0.9 % (0-2.0); EOS % 2.9 % (0-4.5); HEMATOCRIT 24.8 % (35.4-49); LYMPH % 9.5 % (8-40); MCH 25.5 pg (25.7-33.7); MCHC 32.1 g/dl (32.0-35.9); MEAN CELL VOLUME 79.3 fl (80-96); MEAN PLT VOLUME 8.5 fl (7.5-11.1); MONO % 9.6 % (3.8-10.2); NEUT % 77.1 % (42.8-82.8); PLATELET COUNT 123 10^3/uL (134-434); RBC 3.13 M/mm3 (4.00-5.60); RDW 18.6 % (11.9-15.9); WHITE BLOOD COUNT 5.9 K/mm3 (4.0-10.0)
[2024-02-22 10:23] LABS: POTASSIUM 3.5 mmol/L (3.5-5.1)
[2024-02-22 10:42] LABS: BLOOD UREA NITROGEN 26.7 mg/dL (7-18)
[2024-02-22 10:43] LABS: CALCIUM 8.8 mg/dL (8.5-10.1); MAGNESIUM 2.1 mg/dL (1.8-2.4)
[2024-02-22 10:45] LABS: CREATININE 1.9 mg/dL (0.55-1.3)
[2024-02-22 10:47] LABS: BILIRUBIN,TOTAL 0.4 mg/dL (0.2-1); TOT PROT 7.4 g/dl (6.4-8.2)
[2024-02-22 10:48] LABS: ALBUMIN 2.6 g/dl (3.4-5.0)
[2024-02-22] MEDS: ACETAMINOPHEN 325 MG TABLET (FP) PO ONE (13:41)
[2024-02-22] MEDS ORDERED: HYDROCORTISONE 1% TOPICAL LOTION 118 ML BOTTLE TP PRN (16:51)
[2024-02-23] MEDS: MUPIROCIN 2% TOPICAL OINTMENT 22 GM TUBE TP SCH (01:53)
[2024-02-23 06:26] VITALS: RESP 18
[2024-02-23] MEDS: levETIRAcetam 500 MG/5 ML INJECTION VIAL IVPB ONE (07:17)
[2024-02-23 09:56] VITALS: BP 147/71; PULSE 61; TEMP 97.3
== END 2024-02-23 11:38 | DRG 466 ==
LOC: JER 10:02 → JERBED 14:59 → J8W 18:12
PROVIDERS: ADMIT Internal Medicine; ATTEND Internal Medicine
DX: T83.028A Displacement of other urinary catheter, initial encounter (principal); J18.9 Pneumonia, unspecified organism; I13.0 Hypertensive heart and chronic kidney disease with heart failure and stage 1 through stage 4 chronic kidney disease, or unspecified chronic kidney disease; E11.22 Type 2 diabetes mellitus with diabetic chronic kidney disease; I50.9 Heart failure, unspecified; J44.9 Chronic obstructive pulmonary disease, unspecified; E11.51 Type 2 diabetes mellitus with diabetic peripheral angiopathy without gangrene; R56.9 Unspecified convulsions; I50.32 Chronic diastolic (congestive) heart failure; I27.20 Pulmonary hypertension, unspecified; D69.6 Thrombocytopenia, unspecified; I25.10 Atherosclerotic heart disease of native coronary artery without angina pectoris; N40.0 Benign prostatic hyperplasia without lower urinary tract symptoms; N18.9 Chronic kidney disease, unspecified; R31.0 Gross hematuria; N32.89 Other specified disorders of bladder; D64.9 Anemia, unspecified; G30.9 Alzheimer's disease, unspecified; Y84.6 Urinary catheterization as the cause of abnormal reaction of the patient, or of later complication, without mention of misadventure at the time of the procedure
CPT/HCPCS: 36415; 70450-TC; 70551-TC; 74176-TC; 80053; 81003; 82607; 82728; 82962; 83540; 83550; 83735; 84436; 84443; 84466; 85025; 85610; 85730; 86780; 86850; 86900; 86901; 87040; 87086; 99291; J1756

== ENCOUNTER 2024-04-13 15:44 | Inpatient (IN) | payer OTHER ==
[2024-04-13 17:27] LABS: EPI CELLS 0 /uL (0-25.1); HYALINE CASTS 0 /uL (0-3.1); PH,URINE 7.5 (5.0-8.0); URINE APPEARANCE CLEAR; URINE BACTERIA 439 /uL (0-1359); URINE BILIRUBIN NEGATIVE (NEGATIVE); URINE COLOR YELLOW; URINE GLUCOSE (UA) NEGATIVE (NEGATIVE); URINE KETONE NEGATIVE (NEGATIVE); URINE LEUK ESTERASE 3+ (NEGATIVE); URINE NITRITE NEGATIVE (NEGATIVE); URINE PROTEIN 2+ (NEGATIVE); URINE RBC 43 /uL (0-23.9); URINE WBC 611 /uL (0-25.8)
[2024-04-13 18:09] LABS: BASO % 0.6 % (0-2.0); EOS % 0.1 % (0-4.5); HEMATOCRIT 27.3 % (35.4-49); HEMOGLOBIN 8.3 GM/dL (11.7-16.9); LYMPH % 1.7 % (8-40); MCH 25.5 pg (25.7-33.7); MCHC 30.4 g/dl (32.0-35.9); MEAN CELL VOLUME 83.9 fl (80-96); MONO % 6.7 % (3.8-10.2); NEUT % 90.9 % (42.8-82.8); RBC 3.25 M/mm3 (4.00-5.60); RDW 20.1 % (11.9-15.9); WHITE BLOOD COUNT 7.7 K/mm3 (4.0-10.0)
[2024-04-13] MEDS: SODIUM CHLORIDE 1,000 ML IV STA (18:25)
[2024-04-13 18:32] LABS: ALBUMIN 3.2 g/dl (3.4-5.0); BLOOD UREA NITROGEN 82.1 mg/dL (7-18); CALCIUM 9.6 mg/dL (8.5-10.1); MAGNESIUM 2.3 mg/dL (1.8-2.4); PLATELET COUNT 35 10^3/uL (134-434); PLATELET ESTIMATE DECREASED
[2024-04-13 18:35] LABS: CREATININE 2.4 mg/dL (0.55-1.3)
[2024-04-13 18:37] LABS: BILIRUBIN,TOTAL 0.8 mg/dL (0.2-1); TOT PROT 7.5 g/dl (6.4-8.2)
[2024-04-13] MEDS ORDERED: CEFTRIAXONE 1 GM/50 ML BAG ONE (20:18)
[2024-04-14] MEDS: FUROSEMIDE 40 MG/4 ML INJECTABLE VIAL IVPUSH ONE ×2 (06:43→09:40)
[2024-04-14] MEDS ORDERED: FUROSEMIDE 40 MG/4 ML INJECTABLE VIAL ONE (08:29)
[2024-04-14 08:52] LABS: ARTERIAL BLD GAS O2 SATURATION 89.5 % (95-98); ARTERIAL BLOOD GAS BASE EXCESS 6.6 mmol/L (-2-2); ARTERIAL BLOOD GAS PO2 59.7 mmHg (80-100); ARTERIAL BLOOD GAS pH 7.368 (7.350-7.450)
[2024-04-14 08:53] LABS: ALLENS TEST POSITIVE
[2024-04-14] MEDS: DEXTROSE 50%-WATER 25 GM/50 ML DISP.SYRIN IVPUSH ONE (09:41)
[2024-04-14] MEDS: TAMSULOSIN HCL 0.4 MG CAP PO SCH ×2 (09:42→21:29)
[2024-04-14] MEDS: FERROUS SO4 325 MG TABLET (FP) PO SCH (09:42)
[2024-04-14 10:04] LABS: POTASSIUM 4.3 mmol/L (3.5-5.1)
[2024-04-14 10:06] LABS: BLOOD UREA NITROGEN 79.4 mg/dL (7-18); CALCIUM 8.7 mg/dL (8.5-10.1)
[2024-04-14 10:07] LABS: ALBUMIN 2.8 g/dl (3.4-5.0)
[2024-04-14 10:10] LABS: CREATININE 2.5 mg/dL (0.55-1.3)
[2024-04-14 10:11] LABS: BILIRUBIN,TOTAL 0.7 mg/dL (0.2-1); TOT PROT 6.8 g/dl (6.4-8.2)
[2024-04-14] MEDS: hydrALAZINE HCL 10 MG TABLET PO SCH ×2 (11:57→21:28)
[2024-04-14] MEDS: amLODIPine BESYLATE 2.5 MG TABLET (FP) PO SCH (11:57)
[2024-04-14] MEDS: LABETALOL HCL 100 MG TABLET (FP) PO SCH ×2 (11:57→21:29)
[2024-04-14] MEDS: FINASTERIDE 5 MG TABLET (FP) PO SCH ×2 (11:58→15:09)
[2024-04-14] MEDS: MUPIROCIN 2% TOPICAL OINTMENT FOR DECOLONIZATION NS SCH (12:27)
[2024-04-14] MEDS: CEFTRIAXONE 1 GM in DEXTROSE 5%-WATER - 50 ML IVPB SCH (12:27)
[2024-04-14] MEDS: MAGNESIUM 2GM/50ML STERILE WATER IVPB IVPB ONE (12:27)
[2024-04-14 12:52] LABS: MAGNESIUM 2.1 mg/dL (1.8-2.4)
[2024-04-14 14:15] LABS: ARTERIAL BLD GAS O2 SATURATION 84.4 % (95-98); ARTERIAL BLOOD GAS BASE EXCESS 5.1 mmol/L (-2-2); ARTERIAL BLOOD GAS PO2 54.2 mmHg (80-100); ARTERIAL BLOOD GAS pH 7.316 (7.350-7.450)
[2024-04-14 14:16] LABS: ALLENS TEST POSITIVE
[2024-04-14 14:17] LABS: VENT MODE S/T; VENT RATE 20
[2024-04-14] MEDS: SERTRALINE HCL 25 MG TABLET (FP) PO SCH (15:08)
[2024-04-14 15:10] VITALS: BMI 25.4
[2024-04-14 18:36] LABS: BF WBC & OTHER NUCLEATED CELLS 602 /mm3
[2024-04-14 20:12] LABS: BASO % 0.6 % (0-2.0); HEMATOCRIT 25.1 % (35.4-49); HEMOGLOBIN 7.7 GM/dL (11.7-16.9); LYMPH % 2.8 % (8-40); MCH 25.7 pg (25.7-33.7); MCHC 30.6 g/dl (32.0-35.9); MONO % 10.6 % (3.8-10.2); PLATELET COUNT 75 10^3/uL (134-434); RBC 2.99 M/mm3 (4.00-5.60); RDW 19.1 % (11.9-15.9); WHITE BLOOD COUNT 4.9 K/mm3 (4.0-10.0)
[2024-04-14 20:32] LABS: N-TERMINAL BNP 4748.2 pg/ml (5-450)
[2024-04-14 20:53] LABS: BODY FLUID MONOCYTE 4 %
[2024-04-14] MEDS: CHLORHEXIDINE GLUCONATE 4% CLEANSER FOR DECOLONIZATION TP SCH (21:29)
[2024-04-14] MEDS: ATORVASTATIN CA 20 MG TABLET (FP) PO SCH (21:29)
[2024-04-14 21:50] LABS: ARTERIAL BLD GAS O2 SATURATION 94.9 % (95-98); ARTERIAL BLOOD GAS PO2 88.7 mmHg (80-100); ARTERIAL BLOOD GAS pH 7.239 (7.350-7.450)
[2024-04-14 21:51] LABS: ALLENS TEST POSITIVE
[2024-04-14 21:59] LABS: VENT MODE EPAP 5
[2024-04-14] MEDS ORDERED: ATORVASTATIN CA 40 MG TABLET (FP) PO SCH (22:00)
[2024-04-14 23:07] LABS: ARTERIAL BLD GAS O2 SATURATION 94.6 % (95-98); ARTERIAL BLOOD GAS BASE EXCESS 1.4 mmol/L (-2-2); ARTERIAL BLOOD GAS PO2 87.2 mmHg (80-100); ARTERIAL BLOOD GAS pH 7.236 (7.350-7.450)
[2024-04-14 23:19] LABS: VENT RATE 20
[2024-04-14] MEDS: methylPREDNISolone NA SUCC 40 MG/1 ML VIAL IVPUSH SCH (23:55)
[2024-04-15] MEDS: ALBUTEROL SO4 2.5/IPRATROPIUM 0.5 INH SOL 3 ML VIAL.NEB. NEB PRN (00:06)
[2024-04-15] MEDS ORDERED: RAPID SEQUENCE INTUBATION KIT NR ONE ×2 (00:28→00:39)
[2024-04-15] MEDS ORDERED: PHENYLEPHRINE HCL 10 MG/1 ML SINGLE DOSE VIAL ONE (00:33)
[2024-04-15] MEDS ORDERED: fentaNYL CITRATE 250 MCG/5 ML VIAL ONE (00:35)
[2024-04-15] MEDS ORDERED: MIDAZOLAM HCL 2 MG/2 ML SINGLE DOSE VIAL ONE (00:36)
[2024-04-15 02:22] LABS: ARTERIAL BLD GAS O2 SATURATION 98.5 % (95-98); ARTERIAL BLOOD GAS BASE EXCESS -5.5 mmol/L (-2-2); ARTERIAL BLOOD GAS PO2 162.8 mmHg (80-100)
[2024-04-15] MEDS ORDERED: NOREPINEPHRINE BITARTRATE 4 MG/4 ML ML IV ONE (02:26)
[2024-04-15 02:29] LABS: VENT MODE A/C; VENT RATE 18
[2024-04-15 02:31] LABS: ARTERIAL BLOOD GAS pH 7.153 (7.350-7.450)
[2024-04-15] MEDS: PHENYLEPHRINE NS PREMIX 50,000 MCG/500 ML BAG IVPB SCH (03:00)
[2024-04-15] MEDS: EPINEPHrine 1:1,000 1,000 MCG in DEXTROSE 5%-WATER - 249 ML IVPB SCH (03:00)
[2024-04-15] MEDS ORDERED: NOREPINEPHRINE BITARTRATE/D5W 8 MG/250 ML BAG IVPB SCH (03:00)
[2024-04-15] MEDS: NOREPINEPHRINE 0.9 % NACL 8 MG/250 ML BAG IVPB SCH (04:00)
[2024-04-15] MEDS: LACTATED RINGERS SOLUTION 1,000 ML/1,000 ML INFUS.BAG IV STA (04:04)
[2024-04-15 04:08] LABS: ARTERIAL BLD GAS O2 SATURATION 89.6 % (95-98); ARTERIAL BLOOD GAS BASE EXCESS -0.7 mmol/L (-2-2); ARTERIAL BLOOD GAS PO2 68.1 mmHg (80-100); ARTERIAL BLOOD GAS pH 7.233 (7.350-7.450)
[2024-04-15 04:15] LABS: HEMATOCRIT 26.4 % (35.4-49); HEMOGLOBIN 7.9 GM/dL (11.7-16.9); MCH 25.6 pg (25.7-33.7); MEAN CELL VOLUME 85.3 fl (80-96); RBC 3.09 M/mm3 (4.00-5.60); RDW 19.5 % (11.9-15.9)
[2024-04-15 04:17] LABS: INR 1.25 (0.83-1.09); PROTHROMBIN TIME (PATIENT) 14.3 SEC (9.7-13.0)
[2024-04-15] MEDS: VANCOMYCIN/WATER 1250 MG 1,250 MG/250 ML BAG IVPB SCH (04:17)
[2024-04-15 04:18] LABS: WHITE BLOOD COUNT 4.8 K/mm3 (4.0-10.0)
[2024-04-15] MEDS: FENTANYL NS IVPB 500 MCG/100 ML BAG IVPB SCH (04:18)
[2024-04-15] MEDS: MIDAZOLAM IN 0.9 % SOD.CHLORID 100 MG/100 ML PLAST..BAG IVPB SCH (04:21)
[2024-04-15 04:36] LABS: POTASSIUM 4.9 mmol/L (3.5-5.1)
[2024-04-15 04:38] LABS: BLOOD UREA NITROGEN 87.6 mg/dL (7-18); MAGNESIUM 2.1 mg/dL (1.8-2.4)
[2024-04-15 04:39] LABS: ALBUMIN 2.6 g/dl (3.4-5.0)
[2024-04-15 04:41] LABS: ALBUMIN 2.6 g/dl (3.4-5.0)
[2024-04-15 04:42] LABS: CREATININE 3.1 mg/dL (0.55-1.3); PHOSPHOROUS 7.7 mg/dL (2.5-4.9)
[2024-04-15 04:43] LABS: BILIRUBIN,TOTAL 1.4 mg/dL (0.2-1); TOT PROT 6.8 g/dl (6.4-8.2)
[2024-04-15 04:44] LABS: BILIRUBIN,DIRECT 0.6 mg/dL (0.0-0.2)
[2024-04-15 04:46] LABS: BILIRUBIN,TOTAL 1.6 mg/dL (0.2-1); TOT PROT 6.8 g/dl (6.4-8.2)
[2024-04-15 04:50] LABS: LACTIC ACID 4.9 mmol/L (0.4-2.0)
[2024-04-15] MEDS: PIPERACILLIN/TAZOB 4.5 GM 4.5 GM in DEXTROSE 5%-WATER 100 ML IVPB SCH (05:21)
[2024-04-15 05:29] LABS: ANISOCYTOSIS 3+; MACROCYTOSIS 3+; TARGET CELLS 2+
[2024-04-15 05:31] LABS: MEAN PLT VOLUME 9.1 fl (7.5-11.1); PLATELET COUNT 74 10^3/uL (134-434)
[2024-04-15 06:19] LABS: ARTERIAL BLD GAS O2 SATURATION 94.3 % (95-98); ARTERIAL BLOOD GAS BASE EXCESS 0 mmol/L (-2-2); ARTERIAL BLOOD GAS PO2 81.9 mmHg (80-100); ARTERIAL BLOOD GAS pH 7.273 (7.350-7.450)
[2024-04-15 06:20] LABS: VENT MODE A/C; VENT RATE 18
[2024-04-15] MEDS: VASopressin 40 UNITS/100 ML BAG IV SCH (06:50)
[2024-04-15 07:47] LABS: LACTIC ACID 2.9 mmol/L (0.4-2.0)
[2024-04-15 08:33] LABS: ALBUMIN 2.5 g/dl (3.4-5.0); BLOOD UREA NITROGEN 88.6 mg/dL (7-18); CALCIUM 8.4 mg/dL (8.5-10.1)
[2024-04-15 08:36] LABS: CREATININE 3.1 mg/dL (0.55-1.3)
[2024-04-15 08:38] LABS: BILIRUBIN,TOTAL 1.3 mg/dL (0.2-1); TOT PROT 6.4 g/dl (6.4-8.2)
[2024-04-15] MEDS ORDERED: ATROPINE SULFATE 1 MG/10 ML DISP.SYRIN ONE (09:02)
[2024-04-15] MEDS ORDERED: CEFTRIAXONE 1 GM in DEXTROSE 5%-WATER - 50 ML IVPB SCH (10:00)
[2024-04-15] MEDS ORDERED: FUROSEMIDE 40 MG/4 ML INJECTABLE VIAL IVPUSH SCH (10:00)
[2024-04-15] MEDS: FAMOTIDINE 20 MG/50 ML IVPB 20 MG/50 ML MG IVPB SCH (10:39)
[2024-04-15] MEDS: FLUDROCORTISONE ACETATE 0.1 MG TABLET (FP) NGT SCH (10:40)
[2024-04-15] MEDS: FUROSEMIDE 40 MG/4 ML INJECTABLE VIAL IVPUSH SCH (10:40)
[2024-04-15] MEDS: FERROUS SO4 325 MG TABLET (FP) PO SCH (10:40)
[2024-04-15 10:41] LABS: BASO % 0.4 % (0-2.0); EOS % 0.1 % (0-4.5); HEMATOCRIT 23.8 % (35.4-49); HEMOGLOBIN 7.2 GM/dL (11.7-16.9); LYMPH % 2.4 % (8-40); MCH 25.6 pg (25.7-33.7); MCHC 30.2 g/dl (32.0-35.9); MEAN CELL VOLUME 84.7 fl (80-96); MEAN PLT VOLUME 9.6 fl (7.5-11.1); MONO % 6.8 % (3.8-10.2); NEUT % 90.3 % (42.8-82.8); PLATELET COUNT 61 10^3/uL (134-434); RBC 2.81 M/mm3 (4.00-5.60); RDW 19.2 % (11.9-15.9); WHITE BLOOD COUNT 4.9 K/mm3 (4.0-10.0)
[2024-04-15] MEDS: HYDROCORTISONE SOD SUCCINATE 100 MG/2 ML VIAL IVPB SCH (10:41)
[2024-04-15] MEDS: amLODIPine BESYLATE 2.5 MG TABLET (FP) PO SCH (10:43)
[2024-04-15] MEDS: POLYETHYLENE GLYCOL (HEALTHYLAX) 3350 17 GM PACKET NGT SCH (10:44)
[2024-04-15 17:01] LABS: ARTERIAL BLD GAS O2 SATURATION 98.8 % (95-98); ARTERIAL BLOOD GAS BASE EXCESS 3.5 mmol/L (-2-2); ARTERIAL BLOOD GAS PO2 121.7 mmHg (80-100); ARTERIAL BLOOD GAS pH 7.541 (7.350-7.450)
[2024-04-15 17:06] LABS: VENT MODE A/C
[2024-04-15 17:07] LABS: VENT RATE 20
[2024-04-15] MEDS: PIPERACILLIN/TAZOB 2.25 GM 2.25 GM in DEXTROSE 5%-WATER - 50 ML IVPB SCH (21:13)
[2024-04-16] MEDS ORDERED: PIPERACILLIN/TAZOB 4.5 GM 4.5 GM in DEXTROSE 5%-WATER 100 ML IVPB SCH (02:00)
[2024-04-16] MEDS ORDERED: VANCOMYCIN/WATER 1250 MG 1,250 MG/250 ML BAG IVPB SCH (04:00)
[2024-04-16 06:05] LABS: ARTERIAL BLD GAS O2 SATURATION 99.2 % (95-98); ARTERIAL BLOOD GAS BASE EXCESS 6.4 mmol/L (-2-2); ARTERIAL BLOOD GAS pH 7.569 (7.350-7.450)
[2024-04-16 06:07] LABS: VENT MODE V-A/C; VENT RATE 20
[2024-04-16 06:53] LABS: HEMATOCRIT 23.2 % (35.4-49); HEMOGLOBIN 7.3 GM/dL (11.7-16.9); MCH 25.7 pg (25.7-33.7); MCHC 31.5 g/dl (32.0-35.9); MEAN CELL VOLUME 81.7 fl (80-96); MEAN PLT VOLUME 9.9 fl (7.5-11.1); PLATELET COUNT 62 10^3/uL (134-434); RBC 2.84 M/mm3 (4.00-5.60); RDW 19.4 % (11.9-15.9)
[2024-04-16 07:07] LABS: CHLORIDE 110 mmol/L (98-107); POTASSIUM 4.2 mmol/L (3.5-5.1); SODIUM 146 mmol/L (136-145)
[2024-04-16 07:12] LABS: CALCIUM 8.5 mg/dL (8.5-10.1)
[2024-04-16 07:13] LABS: ALBUMIN 2.3 g/dl (3.4-5.0); ANION GAP 5 mmol/L (4-13); CO2 31 mmol/L (21-32); GLUCOSE,RANDOM 142 mg/dL (74-106); MAGNESIUM 1.9 mg/dL (1.8-2.4)
[2024-04-16 07:16] LABS: CREATININE 3.6 mg/dL (0.55-1.3); SGOT/AST 71 U/L (15-37); SGPT/ALT 85 U/L (13-61)
[2024-04-16 07:17] LABS: BILIRUBIN,TOTAL 1.8 mg/dL (0.2-1); TOT PROT 6.1 g/dl (6.4-8.2)
[2024-04-16 07:21] LABS: ALK PHOS 155 U/L (45-117); BLOOD UREA NITROGEN 105.2 mg/dL (7-18)
[2024-04-16 16:08] LABS: FREE KAPPA,SERUM 173.6 mg/L (3.3-19.4)
[2024-04-16 17:08] LABS: BODY FLUID ALBUMIN 1.9 g/dL (Not Estab.)
[2024-04-17 07:21] LABS: CHLORIDE 112 mmol/L (98-107); POTASSIUM 4.1 mmol/L (3.5-5.1); SODIUM 148 mmol/L (136-145)
[2024-04-17 07:24] LABS: CALCIUM 8.5 mg/dL (8.5-10.1)
[2024-04-17 07:25] LABS: ALBUMIN 2.2 g/dl (3.4-5.0); ANION GAP 6 mmol/L (4-13); CO2 30 mmol/L (21-32); GLUCOSE,RANDOM 180 mg/dL (74-106)
[2024-04-17 07:28] LABS: CREATININE 4.3 mg/dL (0.55-1.3); SGOT/AST 53 U/L (15-37); SGPT/ALT 70 U/L (13-61)
[2024-04-17 07:29] LABS: BILIRUBIN,TOTAL 1.9 mg/dL (0.2-1); TOT PROT 6.1 g/dl (6.4-8.2)
[2024-04-17 07:31] LABS: ALK PHOS 143 U/L (45-117)
[2024-04-17 07:34] LABS: BLOOD UREA NITROGEN 123.9 mg/dL (7-18)
[2024-04-17 08:27] LABS: BASO % 0.1 % (0-2.0); HEMATOCRIT 22.9 % (35.4-49); HEMOGLOBIN 7.2 GM/dL (11.7-16.9); LYMPH % 4.4 % (8-40); MCH 25.5 pg (25.7-33.7); MCHC 31.7 g/dl (32.0-35.9); MEAN CELL VOLUME 80.7 fl (80-96); MONO % 9.6 % (3.8-10.2); NEUT % 85.9 % (42.8-82.8); RBC 2.84 M/mm3 (4.00-5.60); RDW 18.6 % (11.9-15.9); WHITE BLOOD COUNT 7.5 K/mm3 (4.0-10.0)
[2024-04-17] MEDS: PROPOFOL 1,000,000 MCG/100 ML VIAL IVPB SCH (10:46)
[2024-04-17] MEDS: hydrALAZINE HCL 20 MG/ML VIAL IVPUSH PRN (11:02)
[2024-04-17] MEDS: LACTATED RINGERS SOLUTION 1,000 ML/1,000 ML INFUS.BAG IV SCH (11:02)
[2024-04-18 07:08] LABS: BASO % 0.5 % (0-2.0); HEMATOCRIT 22.7 % (35.4-49); HEMOGLOBIN 7.2 GM/dL (11.7-16.9); LYMPH % 4.7 % (8-40); MCH 25.8 pg (25.7-33.7); MCHC 31.8 g/dl (32.0-35.9); MEAN CELL VOLUME 81.1 fl (80-96); MONO % 7.4 % (3.8-10.2); NEUT % 87.4 % (42.8-82.8); PLATELET COUNT 89 10^3/uL (134-434); RBC 2.79 M/mm3 (4.00-5.60); RDW 18.1 % (11.9-15.9)
[2024-04-18 07:23] LABS: CHLORIDE 116 mmol/L (98-107); POTASSIUM 3.9 mmol/L (3.5-5.1); SODIUM 151 mmol/L (136-145)
[2024-04-18 07:26] LABS: ALBUMIN 2.2 g/dl (3.4-5.0); ANION GAP 7 mmol/L (4-13); CALCIUM 8.3 mg/dL (8.5-10.1); CO2 28 mmol/L (21-32)
[2024-04-18 07:27] LABS: GLUCOSE,RANDOM 184 mg/dL (74-106)
[2024-04-18 07:29] LABS: CREATININE 4.3 mg/dL (0.55-1.3)
[2024-04-18 07:30] LABS: SGOT/AST 102 U/L (15-37); SGPT/ALT 78 U/L (13-61)
[2024-04-18 07:31] LABS: BILIRUBIN,TOTAL 1.6 mg/dL (0.2-1); TOT PROT 5.9 g/dl (6.4-8.2)
[2024-04-18 07:32] LABS: ALK PHOS 170 U/L (45-117)
[2024-04-18 07:38] LABS: BLOOD UREA NITROGEN 121.9 mg/dL (7-18)
[2024-04-18] MEDS: LACTATED RINGERS SOLUTION 1000 ML INFUS.BAG IV ONE (14:45)
[2024-04-19 09:42] LABS: CHLORIDE 115 mmol/L (98-107); POTASSIUM 3.8 mmol/L (3.5-5.1); SODIUM 147 mmol/L (136-145)
[2024-04-19 09:44] LABS: ANION GAP 3 mmol/L (4-13); CALCIUM 8.1 mg/dL (8.5-10.1); CO2 29 mmol/L (21-32)
[2024-04-19 09:45] LABS: BASO % 0.2 % (0-2.0); GLUCOSE,RANDOM 163 mg/dL (74-106); HEMATOCRIT 21.7 % (35.4-49); LYMPH % 3.1 % (8-40); MAGNESIUM 2.3 mg/dL (1.8-2.4); MCH 25.3 pg (25.7-33.7); MCHC 31.2 g/dl (32.0-35.9); MEAN CELL VOLUME 81.1 fl (80-96); MEAN PLT VOLUME 8.9 fl (7.5-11.1); MONO % 10.4 % (3.8-10.2); NEUT % 85.3 % (42.8-82.8); PLATELET COUNT 80 10^3/uL (134-434); RBC 2.68 M/mm3 (4.00-5.60); RDW 18.4 % (11.9-15.9); WHITE BLOOD COUNT 11.6 K/mm3 (4.0-10.0)
[2024-04-19 09:47] LABS: PHOSPHOROUS 3.8 mg/dL (2.5-4.9); SGPT/ALT 120 U/L (13-61)
[2024-04-19 09:48] LABS: CREATININE 4.1 mg/dL (0.55-1.3); SGOT/AST 156 U/L (15-37)
[2024-04-19 09:49] LABS: TOT PROT 5.5 g/dl (6.4-8.2)
[2024-04-19 09:52] LABS: HEMOGLOBIN 6.8 GM/dL (11.7-16.9)
[2024-04-19 10:59] LABS: ALK PHOS 227 U/L (45-117)
[2024-04-19] MEDS: methylPREDNISolone NA SUCC 40 MG/1 ML VIAL IVPUSH SCH (17:03)
[2024-04-19 17:11] LABS: CK-MM 84 % (97-100)
[2024-04-19] MEDS: ALBUTEROL SO4 2.5/IPRATROPIUM 0.5 INH SOL 3 ML VIAL.NEB. NEB SCH (20:32)
[2024-04-19 21:35] LABS: HEMATOCRIT 25.1 % (35.4-49); HEMOGLOBIN 7.9 GM/dL (11.7-16.9); MCH 25.5 pg (25.7-33.7); MCHC 31.5 g/dl (32.0-35.9); MEAN CELL VOLUME 81.1 fl (80-96); MEAN PLT VOLUME 9.1 fl (7.5-11.1); PLATELET COUNT 80 10^3/uL (134-434); RBC 3.09 M/mm3 (4.00-5.60); RDW 17.7 % (11.9-15.9); WHITE BLOOD COUNT 13.2 K/mm3 (4.0-10.0)
[2024-04-19 22:27] LABS: ANISOCYTOSIS 1+; MACROCYTOSIS 1+; OVALOCYTE 1+; TARGET CELLS 2+
[2024-04-19 22:30] LABS: PLATELET ESTIMATE DECREASED
[2024-04-20 06:38] LABS: HEMATOCRIT 24.9 % (35.4-49); HEMOGLOBIN 7.6 GM/dL (11.7-16.9); MCH 25.1 pg (25.7-33.7); MCHC 30.7 g/dl (32.0-35.9); MEAN CELL VOLUME 81.8 fl (80-96); MEAN PLT VOLUME 10.1 fl (7.5-11.1); PLATELET COUNT 91 10^3/uL (134-434); RBC 3.04 M/mm3 (4.00-5.60); RDW 18.1 % (11.9-15.9); WHITE BLOOD COUNT 11.8 K/mm3 (4.0-10.0)
[2024-04-20 06:58] LABS: POTASSIUM 4.9 mmol/L (3.5-5.1)
[2024-04-20 07:09] LABS: BLOOD UREA NITROGEN 102.8 mg/dL (7-18); CALCIUM 7.9 mg/dL (8.5-10.1); MAGNESIUM 2.3 mg/dL (1.8-2.4)
[2024-04-20 07:12] LABS: CREATININE 3.6 mg/dL (0.55-1.3); PHOSPHOROUS 5.6 mg/dL (2.5-4.9)
[2024-04-20] MEDS: ALBUTEROL SO4 0.083% IH SOL 2.5 MG/3 ML VIAL.NEB. NEB SCH (12:07)
[2024-04-20] MEDS: ACETYLCYSTEINE 20% 200MG/ML 4 ML VIAL *FOR ORAL / INH USE ONLY NEB SCH (12:07)
[2024-04-20 16:14] LABS: HEMATOCRIT 24.5 % (35.4-49); HEMOGLOBIN 7.6 GM/dL (11.7-16.9); MCH 25.3 pg (25.7-33.7); MCHC 31.1 g/dl (32.0-35.9); MEAN CELL VOLUME 81.4 fl (80-96); MEAN PLT VOLUME 9.3 fl (7.5-11.1); PLATELET COUNT 88 10^3/uL (134-434); RBC 3.01 M/mm3 (4.00-5.60); RDW 17.7 % (11.9-15.9); WHITE BLOOD COUNT 11.3 K/mm3 (4.0-10.0)
[2024-04-20 17:00] LABS: ANISOCYTOSIS 0; MACROCYTOSIS 0
[2024-04-20] MEDS ORDERED: METOCLOPRAMIDE HCL INJECTION 10 MG/2 ML VIAL IVPUSH PRN (19:55)
[2024-04-21 06:01] LABS: HEMATOCRIT 23.7 % (35.4-49); HEMOGLOBIN 7.4 GM/dL (11.7-16.9); MCH 25.4 pg (25.7-33.7); MCHC 31.1 g/dl (32.0-35.9); MEAN CELL VOLUME 81.8 fl (80-96); MEAN PLT VOLUME 9.8 fl (7.5-11.1); PLATELET COUNT 115 10^3/uL (134-434); RDW 17.8 % (11.9-15.9); WHITE BLOOD COUNT 12.7 K/mm3 (4.0-10.0)
[2024-04-21 06:17] LABS: CHLORIDE 112 mmol/L (98-107); POTASSIUM 3.9 mmol/L (3.5-5.1); SODIUM 144 mmol/L (136-145)
[2024-04-21 06:25] LABS: ANION GAP 7 mmol/L (4-13); CALCIUM 8.2 mg/dL (8.5-10.1); CO2 25 mmol/L (21-32); GLUCOSE,RANDOM 366 mg/dL (74-106); MAGNESIUM 2.4 mg/dL (1.8-2.4)
[2024-04-21 06:28] LABS: CREATININE 3.6 mg/dL (0.55-1.3); SGOT/AST 63 U/L (15-37); SGPT/ALT 131 U/L (13-61)
[2024-04-21 06:29] LABS: BILIRUBIN,TOTAL 0.8 mg/dL (0.2-1); TOT PROT 5.8 g/dl (6.4-8.2)
[2024-04-21 06:41] LABS: ALK PHOS 244 U/L (45-117); BLOOD UREA NITROGEN 110.3 mg/dL (7-18)
[2024-04-21] MEDS: methylPREDNISolone NA SUCC 40 MG/1 ML VIAL IVPUSH SCH (09:18)
[2024-04-21] MEDS: INSULIN (LEVEMIR) 100 UNITS/ML UNITS SQ ONE (09:24)
[2024-04-21] MEDS ORDERED: INSULIN (LEVEMIR) 100 UNITS/ML UNITS SQ ONE (09:54)
[2024-04-22 06:53] LABS: POTASSIUM 3.6 mmol/L (3.5-5.1)
[2024-04-22 06:55] LABS: HEMATOCRIT 23.4 % (35.4-49); HEMOGLOBIN 7.3 GM/dL (11.7-16.9); MCH 25.5 pg (25.7-33.7); MCHC 31.2 g/dl (32.0-35.9); MEAN CELL VOLUME 81.8 fl (80-96); MEAN PLT VOLUME 9.4 fl (7.5-11.1); PLATELET COUNT 139 10^3/uL (134-434); RBC 2.86 M/mm3 (4.00-5.60); RDW 17.3 % (11.9-15.9)
[2024-04-22 07:00] LABS: CALCIUM 8.1 mg/dL (8.5-10.1)
[2024-04-22 07:02] LABS: BLOOD UREA NITROGEN 96.6 mg/dL (7-18); MAGNESIUM 2.4 mg/dL (1.8-2.4)
[2024-04-22 07:04] LABS: CREATININE 3.2 mg/dL (0.55-1.3)
[2024-04-22 07:05] LABS: BILIRUBIN,TOTAL 0.6 mg/dL (0.2-1); TOT PROT 5.7 g/dl (6.4-8.2)
[2024-04-22] MEDS ORDERED: ALBUTEROL SO4 2.5/IPRATROPIUM 0.5 INH SOL 3 ML VIAL.NEB. NEB SCH (11:15)
[2024-04-22] MEDS: ALBUTEROL SO4 2.5/IPRATROPIUM 0.5 INH SOL 3 ML VIAL.NEB. NEB SCH (11:32)
[2024-04-22] MEDS: methylPREDNISolone NA SUCC 40 MG/1 ML VIAL IVPUSH SCH (12:42)
[2024-04-22] MEDS: ALBUTEROL SO4 2.5/IPRATROPIUM 0.5 INH SOL 3 ML VIAL.NEB. NEB PRN (15:42)
[2024-04-22 20:48] LABS: ARTERIAL BLD GAS O2 SATURATION 96.3 % (95-98); ARTERIAL BLOOD GAS BASE EXCESS -0.2 mmol/L (-2-2); ARTERIAL BLOOD GAS PO2 87.3 mmHg (80-100); ARTERIAL BLOOD GAS pH 7.366 (7.350-7.450)
[2024-04-22 20:58] LABS: ALLENS TEST POSITIVE
[2024-04-22] MEDS: POLYETHYLENE GLYCOL (HEALTHYLAX) 3350 17 GM PACKET PO SCH (21:17)
[2024-04-22 23:22] LABS: HEMATOCRIT 24.7 % (35.4-49); HEMOGLOBIN 7.7 GM/dL (11.7-16.9); MCH 25.5 pg (25.7-33.7); MCHC 31.2 g/dl (32.0-35.9); MEAN PLT VOLUME 8.9 fl (7.5-11.1); PLATELET COUNT 156 10^3/uL (134-434); RBC 3.01 M/mm3 (4.00-5.60); RDW 17.5 % (11.9-15.9); WHITE BLOOD COUNT 11.4 K/mm3 (4.0-10.0)
[2024-04-22 23:46] LABS: CALCIUM 7.7 mg/dL (8.5-10.1)
[2024-04-22 23:47] LABS: ALBUMIN 2.1 g/dl (3.4-5.0); BLOOD UREA NITROGEN 90.6 mg/dL (7-18); MAGNESIUM 2.4 mg/dL (1.8-2.4)
[2024-04-22 23:50] LABS: CREATININE 2.9 mg/dL (0.55-1.3); PHOSPHOROUS 4.2 mg/dL (2.5-4.9)
[2024-04-22 23:52] LABS: BILIRUBIN,TOTAL 0.6 mg/dL (0.2-1); TOT PROT 6.1 g/dl (6.4-8.2)
[2024-04-23 00:06] LABS: ANISOCYTOSIS 1+; MACROCYTOSIS 1+; OVALOCYTE 1+
[2024-04-23 00:11] LABS: PLATELET ESTIMATE ADEQUATE
[2024-04-23] MEDS: INSULIN ASPART SLIDING SCALE (NOVOLOG) 1 VIAL SQ SCH ×3 (00:18→10:30)
[2024-04-23] MEDS: INSULIN (LEVEMIR) 100 UNITS/ML UNITS SQ SCH ×2 (00:19→09:25)
[2024-04-23] MEDS: DEXTROSE 5%-WATER 500 ML INFUS.BAG IV ONE (01:42)
[2024-04-23] MEDS ORDERED: INSULIN (NOVOLOG) ASPART 100 UNITS/ML 10ML VIAL ONE ×2 (04:48→21:19)
[2024-04-23 06:34] LABS: BASO % 0.3 % (0-2.0); HEMATOCRIT 25.6 % (35.4-49); HEMOGLOBIN 7.9 GM/dL (11.7-16.9); MCH 25.6 pg (25.7-33.7); MCHC 31.1 g/dl (32.0-35.9); MEAN CELL VOLUME 82.4 fl (80-96); MONO % 4.8 % (3.8-10.2); NEUT % 90.9 % (42.8-82.8); PLATELET COUNT 157 10^3/uL (134-434); RDW 17.4 % (11.9-15.9); WHITE BLOOD COUNT 9.7 K/mm3 (4.0-10.0)
[2024-04-23 06:51] LABS: POTASSIUM 3.5 mmol/L (3.5-5.1)
[2024-04-23 06:53] LABS: CALCIUM 8.1 mg/dL (8.5-10.1)
[2024-04-23 06:54] LABS: ALBUMIN 2.1 g/dl (3.4-5.0); BLOOD UREA NITROGEN 83.2 mg/dL (7-18); MAGNESIUM 2.4 mg/dL (1.8-2.4)
[2024-04-23 06:57] LABS: PHOSPHOROUS 3.8 mg/dL (2.5-4.9)
[2024-04-23 06:58] LABS: BILIRUBIN,TOTAL 0.6 mg/dL (0.2-1)
[2024-04-24 11:26] LABS: HEMOGLOBIN 8.2 GM/dL (11.7-16.9); MCH 25.8 pg (25.7-33.7); MCHC 31.5 g/dl (32.0-35.9); MEAN CELL VOLUME 81.9 fl (80-96); MEAN PLT VOLUME 9.5 fl (7.5-11.1); PLATELET COUNT 177 10^3/uL (134-434); RBC 3.18 M/mm3 (4.00-5.60); RDW 17.7 % (11.9-15.9); WHITE BLOOD COUNT 9.3 K/mm3 (4.0-10.0)
[2024-04-24 11:39] LABS: POTASSIUM 3.2 mmol/L (3.5-5.1)
[2024-04-24 11:41] LABS: ALBUMIN 2.2 g/dl (3.4-5.0); BLOOD UREA NITROGEN 75.1 mg/dL (7-18); CALCIUM 8.5 mg/dL (8.5-10.1)
[2024-04-24 11:44] LABS: CREATININE 2.6 mg/dL (0.55-1.3)
[2024-04-24] MEDS: KCL 10 MEQ IVPB 10 MEQ/100 ML INFUS.BAG IVPB SCH (11:45)
[2024-04-24 11:46] LABS: BILIRUBIN,TOTAL 0.4 mg/dL (0.2-1); TOT PROT 5.9 g/dl (6.4-8.2)
[2024-04-24] MEDS: DEXTROSE 5%-WATER - 1,000 ML IV SCH (12:17)
[2024-04-24] MEDS ORDERED: INSULIN (NOVOLOG) ASPART 100 UNITS/ML 10ML VIAL ONE (18:28)
[2024-04-25 06:42] LABS: WHITE BLOOD COUNT 10.7 K/mm3 (4.0-10.0)
[2024-04-25 06:43] LABS: BASO % 0.9 % (0-2.0); EOS % 1.1 % (0-4.5); HEMOGLOBIN 7.7 GM/dL (11.7-16.9); LYMPH % 5.8 % (8-40); MCH 25.5 pg (25.7-33.7); MCHC 30.9 g/dl (32.0-35.9); MEAN CELL VOLUME 82.4 fl (80-96); MEAN PLT VOLUME 9.1 fl (7.5-11.1); MONO % 4.6 % (3.8-10.2); NEUT % 87.6 % (42.8-82.8); PLATELET COUNT 186 10^3/uL (134-434); RBC 3.03 M/mm3 (4.00-5.60); RDW 17.1 % (11.9-15.9)
[2024-04-25 07:00] LABS: POTASSIUM 3.2 mmol/L (3.5-5.1)
[2024-04-25 07:06] LABS: ALBUMIN 2.3 g/dl (3.4-5.0); CALCIUM 8.1 mg/dL (8.5-10.1); MAGNESIUM 2.4 mg/dL (1.8-2.4)
[2024-04-25 07:07] LABS: BLOOD UREA NITROGEN 66.5 mg/dL (7-18)
[2024-04-25 07:10] LABS: PHOSPHOROUS 3.4 mg/dL (2.5-4.9)
[2024-04-25 07:11] LABS: BILIRUBIN,TOTAL 0.4 mg/dL (0.2-1); CREATININE 2.4 mg/dL (0.55-1.3)
[2024-04-25 07:13] LABS: TOT PROT 6.1 g/dl (6.4-8.2)
[2024-04-25] MEDS: POTASSIUM CHLORIDE ORAL LIQUID 20 MEQ/15 ML PO ONE (09:06)
[2024-04-25] MEDS ORDERED: INSULIN (LEVEMIR) 100 UNITS/ML UNITS SQ ONE (10:30)
[2024-04-25] MEDS ORDERED: ALBUTEROL SO4 2.5/IPRATROPIUM 0.5 INH SOL 3 ML VIAL.NEB. NEB PRN (19:29)
[2024-04-25] MEDS ORDERED: CHLORHEXIDINE GLUCONATE 4% CLEANSER FOR DECOLONIZATION TP SCH (22:00)
[2024-04-25] MEDS: FAMOTIDINE 20 MG/50 ML IVPB 20 MG/50 ML MG IVPB SCH (22:19)
[2024-04-25] MEDS: INSULIN (LEVEMIR) 100 UNITS/ML UNITS SQ SCH (22:23)
[2024-04-25] MEDS: INSULIN ASPART SLIDING SCALE (NOVOLOG) 1 VIAL SQ SCH (22:24)
[2024-04-25] MEDS: TAMSULOSIN HCL 0.4 MG CAP PO SCH (22:25)
[2024-04-25] MEDS: LABETALOL HCL 100 MG TABLET (FP) PO SCH (22:25)
[2024-04-25] MEDS: POLYETHYLENE GLYCOL (HEALTHYLAX) 3350 17 GM PACKET PO SCH (22:25)
[2024-04-25] MEDS: hydrALAZINE HCL 10 MG TABLET PO SCH (22:25)
[2024-04-25] MEDS: ATORVASTATIN CA 40 MG TABLET (FP) PO SCH (22:25)
[2024-04-26] MEDS: DEXTROSE 50%-WATER 25 GM/50 ML DISP.SYRIN IVPUSH ONE (06:54)
[2024-04-26 08:11] LABS: BASO % 0.9 % (0-2.0); EOS % 1.4 % (0-4.5); HEMATOCRIT 25.5 % (35.4-49); HEMOGLOBIN 7.9 GM/dL (11.7-16.9); LYMPH % 7.3 % (8-40); MCH 25.6 pg (25.7-33.7); MEAN CELL VOLUME 82.6 fl (80-96); MONO % 6.4 % (3.8-10.2); PLATELET COUNT 214 10^3/uL (134-434); RBC 3.09 M/mm3 (4.00-5.60); RDW 17.7 % (11.9-15.9); WHITE BLOOD COUNT 8.9 K/mm3 (4.0-10.0)
[2024-04-26 08:37] LABS: POTASSIUM 3.8 mmol/L (3.5-5.1)
[2024-04-26 08:49] LABS: TOT PROT 6.1 g/dl (6.4-8.2)
[2024-04-26 08:50] LABS: BILIRUBIN,TOTAL 0.4 mg/dL (0.2-1); CREATININE 2.2 mg/dL (0.55-1.3)
[2024-04-26 09:03] LABS: CALCIUM 8.3 mg/dL (8.5-10.1)
[2024-04-26 09:04] LABS: ALBUMIN 2.4 g/dl (3.4-5.0)
[2024-04-26] MEDS: amLODIPine BESYLATE 2.5 MG TABLET (FP) PO SCH (12:10)
[2024-04-26] MEDS: FINASTERIDE 5 MG TABLET (FP) PO SCH (12:11)
[2024-04-26] MEDS: FERROUS SO4 325 MG TABLET (FP) PO SCH (12:11)
[2024-04-26] MEDS: SERTRALINE HCL 25 MG TABLET (FP) PO SCH (12:45)
[2024-04-26] MEDS: POTASSIUM CHLORIDE 10 MEQ in DEXTROSE 5%-WATER - 1,000 ML IV SCH (13:39)
[2024-04-27 07:40] LABS: POTASSIUM 3.6 mmol/L (3.5-5.1)
[2024-04-27 07:50] LABS: ALBUMIN 2.4 g/dl (3.4-5.0); BLOOD UREA NITROGEN 51.7 mg/dL (7-18); CALCIUM 8.4 mg/dL (8.5-10.1)
[2024-04-27 07:53] LABS: CREATININE 2.1 mg/dL (0.55-1.3)
[2024-04-27 07:55] LABS: BILIRUBIN,TOTAL 0.3 mg/dL (0.2-1)
[2024-04-27 08:57] LABS: BASO % 0.8 % (0-2.0); EOS % 3.2 % (0-4.5); HEMOGLOBIN 7.5 GM/dL (11.7-16.9); MCH 25.2 pg (25.7-33.7); MCHC 29.9 g/dl (32.0-35.9); MEAN CELL VOLUME 84.3 fl (80-96); MEAN PLT VOLUME 9.5 fl (7.5-11.1); MONO % 5.2 % (3.8-10.2); NEUT % 82.8 % (42.8-82.8); PLATELET COUNT 221 10^3/uL (134-434); RBC 2.96 M/mm3 (4.00-5.60); RDW 17.7 % (11.9-15.9); WHITE BLOOD COUNT 8.6 K/mm3 (4.0-10.0)
[2024-04-27 16:03] LABS: BASO % 0.9 % (0-2.0); EOS % 3.2 % (0-4.5); HEMATOCRIT 25.6 % (35.4-49); HEMOGLOBIN 7.6 GM/dL (11.7-16.9); LYMPH % 8.2 % (8-40); MCH 25.1 pg (25.7-33.7); MCHC 29.8 g/dl (32.0-35.9); MEAN CELL VOLUME 84.3 fl (80-96); MEAN PLT VOLUME 8.8 fl (7.5-11.1); MONO % 6.2 % (3.8-10.2); NEUT % 81.5 % (42.8-82.8); PLATELET COUNT 204 10^3/uL (134-434); RBC 3.04 M/mm3 (4.00-5.60); RDW 17.7 % (11.9-15.9); WHITE BLOOD COUNT 6.7 K/mm3 (4.0-10.0)
[2024-04-27 16:18] LABS: POTASSIUM 3.8 mmol/L (3.5-5.1)
[2024-04-27 16:20] LABS: ALBUMIN 2.4 g/dl (3.4-5.0); CALCIUM 8.2 mg/dL (8.5-10.1); MAGNESIUM 2.4 mg/dL (1.8-2.4)
[2024-04-27 16:21] LABS: BLOOD UREA NITROGEN 46.4 mg/dL (7-18)
[2024-04-27 16:21] LABS: ARTERIAL BLD GAS O2 SATURATION 96.6 % (95-98); ARTERIAL BLOOD GAS BASE EXCESS -2.2 mmol/L (-2-2); ARTERIAL BLOOD GAS PO2 100.5 mmHg (80-100); ARTERIAL BLOOD GAS pH 7.263 (7.350-7.450)
[2024-04-27 16:23] LABS: PHOSPHOROUS 3.7 mg/dL (2.5-4.9)
[2024-04-27 16:25] LABS: BILIRUBIN,TOTAL 0.3 mg/dL (0.2-1)
[2024-04-27 16:33] LABS: ALLENS TEST POSITIVE
[2024-04-28 11:57] LABS: ARTERIAL BLD GAS O2 SATURATION 98.3 % (95-98); ARTERIAL BLOOD GAS BASE EXCESS -2.5 mmol/L (-2-2); ARTERIAL BLOOD GAS PO2 129.9 mmHg (80-100); ARTERIAL BLOOD GAS pH 7.298 (7.350-7.450)
[2024-04-28 11:58] LABS: ALLENS TEST POSITIVE; VENT MODE S/T
[2024-04-28 11:59] LABS: VENT RATE 12
[2024-04-28 16:39] LABS: BASO % 0.6 % (0-2.0); EOS % 2.8 % (0-4.5); HEMATOCRIT 23.8 % (35.4-49); HEMOGLOBIN 7.1 GM/dL (11.7-16.9); LYMPH % 9.4 % (8-40); MCH 25.3 pg (25.7-33.7); MCHC 29.8 g/dl (32.0-35.9); MEAN CELL VOLUME 84.8 fl (80-96); MEAN PLT VOLUME 9.6 fl (7.5-11.1); MONO % 5.1 % (3.8-10.2); NEUT % 82.1 % (42.8-82.8); PLATELET COUNT 171 10^3/uL (134-434); RBC 2.81 M/mm3 (4.00-5.60); RDW 17.7 % (11.9-15.9); WHITE BLOOD COUNT 5.5 K/mm3 (4.0-10.0)
[2024-04-28 16:50] LABS: ALBUMIN 2.2 g/dl (3.4-5.0); BLOOD UREA NITROGEN 41.5 mg/dL (7-18)
[2024-04-28 16:53] LABS: CREATININE 1.9 mg/dL (0.55-1.3)
[2024-04-28 16:54] LABS: TOT PROT 5.6 g/dl (6.4-8.2)
[2024-04-28 16:55] LABS: BILIRUBIN,TOTAL 0.3 mg/dL (0.2-1)
[2024-04-28] MEDS: levETIRAcetam 500 MG TABLET (FP) PO SCH (22:16)
[2024-04-29 07:50] LABS: ARTERIAL BLD GAS O2 SATURATION 98.5 % (95-98); ARTERIAL BLOOD GAS BASE EXCESS -2.7 mmol/L (-2-2); ARTERIAL BLOOD GAS PO2 152.6 mmHg (80-100); ARTERIAL BLOOD GAS pH 7.233 (7.350-7.450)
[2024-04-29 07:53] LABS: ALLENS TEST POSITIVE; VENT MODE S/T; VENT RATE 18
[2024-04-29 12:42] LABS: BASO % 0.6 % (0-2.0); HEMATOCRIT 22.8 % (35.4-49); LYMPH % 6.7 % (8-40); MCH 25.2 pg (25.7-33.7); MCHC 29.8 g/dl (32.0-35.9); MEAN CELL VOLUME 84.5 fl (80-96); MEAN PLT VOLUME 9.8 fl (7.5-11.1); MONO % 6.9 % (3.8-10.2); NEUT % 83.8 % (42.8-82.8); PLATELET COUNT 165 10^3/uL (134-434); RBC 2.69 M/mm3 (4.00-5.60); RDW 18.2 % (11.9-15.9); WHITE BLOOD COUNT 5.9 K/mm3 (4.0-10.0)
[2024-04-29 12:45] LABS: HEMOGLOBIN 6.8 GM/dL (11.7-16.9)
[2024-04-29 13:02] LABS: POTASSIUM 4.2 mmol/L (3.5-5.1)
[2024-04-29 13:05] LABS: ALBUMIN 2.3 g/dl (3.4-5.0); BLOOD UREA NITROGEN 40.5 mg/dL (7-18)
[2024-04-29 13:08] LABS: CREATININE 2.1 mg/dL (0.55-1.3)
[2024-04-29 13:10] LABS: BILIRUBIN,TOTAL 0.4 mg/dL (0.2-1); TOT PROT 5.6 g/dl (6.4-8.2)
[2024-04-30 08:36] LABS: BASO % 0.6 % (0-2.0); EOS % 1.7 % (0-4.5); HEMATOCRIT 27.1 % (35.4-49); HEMOGLOBIN 8.5 GM/dL (11.7-16.9); MCH 26.6 pg (25.7-33.7); MCHC 31.4 g/dl (32.0-35.9); MEAN CELL VOLUME 84.8 fl (80-96); MONO % 7.4 % (3.8-10.2); NEUT % 84.3 % (42.8-82.8); PLATELET COUNT 167 10^3/uL (134-434); RDW 16.3 % (11.9-15.9)
[2024-04-30 08:57] LABS: POTASSIUM 4.2 mmol/L (3.5-5.1)
[2024-04-30 09:08] LABS: CALCIUM 7.8 mg/dL (8.5-10.1)
[2024-04-30 09:09] LABS: ALBUMIN 2.4 g/dl (3.4-5.0); BLOOD UREA NITROGEN 36.4 mg/dL (7-18)
[2024-04-30 09:12] LABS: CREATININE 2.1 mg/dL (0.55-1.3)
[2024-04-30 09:13] LABS: BILIRUBIN,TOTAL 0.6 mg/dL (0.2-1); TOT PROT 5.9 g/dl (6.4-8.2)
[2024-04-30] MEDS: ASCORBIC ACID 250 MG TABLET (FP) PO SCH (09:57)
[2024-04-30] MEDS: MULTIVITAMINS (DAILY MVI) TABLET (FP) PO SCH (09:57)
[2024-04-30] MEDS: FUROSEMIDE 40 MG/4 ML INJECTABLE VIAL IVPUSH SCH (17:35)
[2024-05-01 07:59] LABS: POTASSIUM 4.8 mmol/L (3.5-5.1)
[2024-05-01 08:07] LABS: BLOOD UREA NITROGEN 32.9 mg/dL (7-18); CALCIUM 7.9 mg/dL (8.5-10.1)
[2024-05-01 08:10] LABS: CREATININE 2.1 mg/dL (0.55-1.3)
[2024-05-01 08:37] LABS: BASO % 1.2 % (0-2.0); EOS % 2.7 % (0-4.5); HEMATOCRIT 28.1 % (35.4-49); HEMOGLOBIN 8.6 GM/dL (11.7-16.9); LYMPH % 11.5 % (8-40); MCH 26.3 pg (25.7-33.7); MCHC 30.8 g/dl (32.0-35.9); MEAN CELL VOLUME 85.3 fl (80-96); MEAN PLT VOLUME 9.6 fl (7.5-11.1); MONO % 10.3 % (3.8-10.2); NEUT % 74.3 % (42.8-82.8); PLATELET COUNT 150 10^3/uL (134-434); RBC 3.29 M/mm3 (4.00-5.60); RDW 17.6 % (11.9-15.9); WHITE BLOOD COUNT 4.4 K/mm3 (4.0-10.0)
[2024-05-02] MEDS: DEXTROSE 50%-WATER 25 GM/50 ML DISP.SYRIN IVPUSH ONE (07:32)
[2024-05-02 09:44] LABS: BASO % 0.8 % (0-2.0); EOS % 2.2 % (0-4.5); HEMATOCRIT 27.4 % (35.4-49); HEMOGLOBIN 8.5 GM/dL (11.7-16.9); LYMPH % 9.5 % (8-40); MCH 26.6 pg (25.7-33.7); MCHC 31.1 g/dl (32.0-35.9); MEAN CELL VOLUME 85.5 fl (80-96); MEAN PLT VOLUME 9.7 fl (7.5-11.1); MONO % 10.7 % (3.8-10.2); NEUT % 76.8 % (42.8-82.8); PLATELET COUNT 119 10^3/uL (134-434); RBC 3.21 M/mm3 (4.00-5.60); RDW 17.2 % (11.9-15.9); WHITE BLOOD COUNT 3.7 K/mm3 (4.0-10.0)
[2024-05-02 10:07] LABS: POTASSIUM 4.1 mmol/L (3.5-5.1)
[2024-05-02 10:09] LABS: ALBUMIN 2.3 g/dl (3.4-5.0); CALCIUM 8.1 mg/dL (8.5-10.1)
[2024-05-02 10:10] LABS: BLOOD UREA NITROGEN 27.5 mg/dL (7-18)
[2024-05-02 10:12] LABS: CREATININE 2.1 mg/dL (0.55-1.3)
[2024-05-02 10:14] LABS: BILIRUBIN,TOTAL 0.6 mg/dL (0.2-1); TOT PROT 6.1 g/dl (6.4-8.2)
[2024-05-02] MEDS: IRON SUCROSE INJECTION 200 MG in SODIUM CHLORIDE 100 ML IVPB ONE (10:37)
[2024-05-02] MEDS: TORSEMIDE 20 MG TABLET (FP) PO SCH (10:37)
[2024-05-03 07:29] LABS: HEMOGLOBIN 8.9 GM/dL (11.7-16.9); MCH 26.5 pg (25.7-33.7); MCHC 30.8 g/dl (32.0-35.9); MEAN PLT VOLUME 9.5 fl (7.5-11.1); PLATELET COUNT 114 10^3/uL (134-434); RBC 3.37 M/mm3 (4.00-5.60); RDW 17.1 % (11.9-15.9); WHITE BLOOD COUNT 3.8 K/mm3 (4.0-10.0)
[2024-05-03 07:47] LABS: POTASSIUM 4.5 mmol/L (3.5-5.1)
[2024-05-03 08:03] LABS: ALBUMIN 2.4 g/dl (3.4-5.0)
[2024-05-03 08:06] LABS: BLOOD UREA NITROGEN 25.8 mg/dL (7-18); CREATININE 1.9 mg/dL (0.55-1.3)
[2024-05-03 08:07] LABS: BILIRUBIN,TOTAL 0.6 mg/dL (0.2-1); TOT PROT 6.2 g/dl (6.4-8.2)
[2024-05-03 08:46] LABS: ANISOCYTOSIS 2+; MACROCYTOSIS 0
[2024-05-03] MEDS: LABETALOL HCL 100 MG TABLET (FP) PO SCH (11:07)
[2024-05-03 23:28] LABS: EPI CELLS 3 /uL (0-25.1); HYALINE CASTS 1 /uL (0-3.1); PH,URINE 5.5 (5.0-8.0); URINE APPEARANCE CLOUDY; URINE BACTERIA 38 /uL (0-1359); URINE BILIRUBIN NEGATIVE (NEGATIVE); URINE COLOR YELLOW; URINE GLUCOSE (UA) NEGATIVE (NEGATIVE); URINE KETONE NEGATIVE (NEGATIVE); URINE LEUK ESTERASE 3+ (NEGATIVE); URINE NITRITE NEGATIVE (NEGATIVE); URINE PROTEIN 3+ (NEGATIVE); URINE UROBILINOGEN 0.2 mg/dL (0.2-1.0); URINE WBC 2251 /uL (0-25.8)
[2024-05-03 23:48] LABS: URINE RBC 841.5 /uL (0-23.9); YEAST MODERATE (NEGATIVE)
[2024-05-04] MEDS: levETIRAcetam 500 MG/5 ML INJECTION VIAL IVPB ONE ×2 (00:50→17:54)
[2024-05-04 07:23] LABS: HEMATOCRIT 27.7 % (35.4-49); HEMOGLOBIN 8.5 GM/dL (11.7-16.9); MCH 26.3 pg (25.7-33.7); MCHC 30.5 g/dl (32.0-35.9); MEAN CELL VOLUME 86.4 fl (80-96); MEAN PLT VOLUME 9.8 fl (7.5-11.1); PLATELET COUNT 114 10^3/uL (134-434); RBC 3.21 M/mm3 (4.00-5.60); RDW 17.2 % (11.9-15.9); WHITE BLOOD COUNT 4.9 K/mm3 (4.0-10.0)
[2024-05-04 07:32] LABS: POTASSIUM 4.6 mmol/L (3.5-5.1)
[2024-05-04 07:35] LABS: ALBUMIN 2.4 g/dl (3.4-5.0); BLOOD UREA NITROGEN 24.4 mg/dL (7-18)
[2024-05-04 07:38] LABS: CREATININE 2.1 mg/dL (0.55-1.3)
[2024-05-04 07:40] LABS: BILIRUBIN,TOTAL 0.4 mg/dL (0.2-1); TOT PROT 6.1 g/dl (6.4-8.2)
[2024-05-04 08:44] LABS: ANISOCYTOSIS 1+; MACROCYTOSIS 0; OVALOCYTE 1+
[2024-05-04] MEDS: PIPERACILLIN/TAZOB 2.25 GM 2.25 GM in DEXTROSE 5%-WATER - 50 ML IVPB SCH (09:31)
[2024-05-04] MEDS ORDERED: PIPERACILLIN/TAZOB 2.25 GM 2.25 GM in DEXTROSE 5%-WATER - 50 ML IVPB SCH (10:00)
[2024-05-04 10:26] LABS: ARTERIAL BLD GAS O2 SATURATION 96.7 % (95-98); ARTERIAL BLOOD GAS BASE EXCESS -0.4 mmol/L (-2-2); ARTERIAL BLOOD GAS PO2 106.2 mmHg (80-100); ARTERIAL BLOOD GAS pH 7.224 (7.350-7.450)
[2024-05-04 10:27] LABS: ALLENS TEST POSITIVE
[2024-05-04] MEDS: DEXTROSE 5%-WATER - 1,000 ML IV SCH (12:16)
[2024-05-04] MEDS: TORSEMIDE 20 MG TABLET (FP) PO SCH (12:18)
[2024-05-04 17:02] LABS: ARTERIAL BLD GAS O2 SATURATION 98.6 % (95-98); ARTERIAL BLOOD GAS BASE EXCESS 0.7 mmol/L (-2-2); ARTERIAL BLOOD GAS PO2 154.7 mmHg (80-100); ARTERIAL BLOOD GAS pH 7.257 (7.350-7.450)
[2024-05-04 17:17] LABS: ALLENS TEST POSITIVE
[2024-05-04 17:18] LABS: VENT RATE 20
[2024-05-04] MEDS ORDERED: DEXTROSE 50%-WATER 25 GM/50 ML DISP.SYRIN ONE (17:20)
[2024-05-04] MEDS: DEXTROSE 50%-WATER 25 GM/50 ML DISP.SYRIN IVPUSH ONE (17:27)
[2024-05-04] MEDS ORDERED: DEXTROSE 50%-WATER - 25 GM/50 ML VIAL IVPUSH PRN (17:43)
[2024-05-04] MEDS: levETIRAcetam 500 MG/5 ML INJECTION VIAL IVPB SCH (22:32)
[2024-05-05 00:45] LABS: ARTERIAL BLD GAS O2 SATURATION 97.9 % (95-98); ARTERIAL BLOOD GAS BASE EXCESS -2.1 mmol/L (-2-2); ARTERIAL BLOOD GAS PO2 135.3 mmHg (80-100)
[2024-05-05 00:47] LABS: VENT MODE S/T; VENT RATE 20
[2024-05-05 04:10] LABS: ARTERIAL BLD GAS O2 SATURATION 88.3 % (95-98); ARTERIAL BLOOD GAS PO2 64.8 mmHg (80-100); ARTERIAL BLOOD GAS pH 7.229 (7.350-7.450)
[2024-05-05 04:12] LABS: VENT MODE S/T; VENT RATE 22
[2024-05-05] MEDS: INSULIN ASPART SLIDING SCALE (NOVOLOG) 1 VIAL SQ SCH (06:32)
[2024-05-05 06:47] LABS: POTASSIUM 4.6 mmol/L (3.5-5.1)
[2024-05-05 06:48] LABS: CALCIUM 7.9 mg/dL (8.5-10.1)
[2024-05-05 06:49] LABS: BLOOD UREA NITROGEN 22.7 mg/dL (7-18); MAGNESIUM 1.8 mg/dL (1.8-2.4)
[2024-05-05 06:52] LABS: CREATININE 2.2 mg/dL (0.55-1.3)
[2024-05-05 07:03] LABS: HEMATOCRIT 27.3 % (35.4-49); HEMOGLOBIN 8.4 GM/dL (11.7-16.9); MCH 26.5 pg (25.7-33.7); MCHC 30.7 g/dl (32.0-35.9); MEAN CELL VOLUME 86.4 fl (80-96); MEAN PLT VOLUME 9.4 fl (7.5-11.1); PLATELET COUNT 102 10^3/uL (134-434); RBC 3.16 M/mm3 (4.00-5.60); RDW 17.4 % (11.9-15.9); WHITE BLOOD COUNT 4.2 K/mm3 (4.0-10.0)
[2024-05-05] MEDS: hydrALAZINE HCL 20 MG/ML VIAL IVPUSH ONE (08:15)
[2024-05-05 09:00] LABS: ANISOCYTOSIS 2+; MACROCYTOSIS 0
[2024-05-05] MEDS: FERROUS SO4 325 MG TABLET (FP) PO SCH (09:01)
[2024-05-05 09:48] LABS: ARTERIAL BLD GAS O2 SATURATION 98.4 % (95-98); ARTERIAL BLOOD GAS BASE EXCESS 2.7 mmol/L (-2-2); ARTERIAL BLOOD GAS PO2 134.8 mmHg (80-100); ARTERIAL BLOOD GAS pH 7.303 (7.350-7.450)
[2024-05-05 09:52] LABS: ALLENS TEST POSITIVE
[2024-05-05 09:53] LABS: VENT MODE S/T; VENT RATE 22
[2024-05-05] MEDS: FINASTERIDE 5 MG TABLET (FP) PO SCH (10:00)
[2024-05-05] MEDS: hydrALAZINE HCL 10 MG TABLET PO SCH (10:00)
[2024-05-05] MEDS: MUPIROCIN 2% TOPICAL OINTMENT FOR DECOLONIZATION NS SCH (10:00)
[2024-05-05] MEDS: SERTRALINE HCL 25 MG TABLET (FP) PO SCH (10:00)
[2024-05-05] MEDS: amLODIPine BESYLATE 2.5 MG TABLET (FP) PO SCH (10:00)
[2024-05-05] MEDS: MULTIVITAMINS (DAILY MVI) TABLET (FP) PO SCH (10:00)
[2024-05-05] MEDS: ASCORBIC ACID 250 MG TABLET (FP) PO SCH (10:00)
[2024-05-05] MEDS: POLYETHYLENE GLYCOL (HEALTHYLAX) 3350 17 GM PACKET PO SCH (10:00)
[2024-05-05] MEDS: AMINO ACIDS 4.25%/D5W 1,000 ML IV SCH (12:11)
[2024-05-05] MEDS: FUROSEMIDE 40 MG/4 ML INJECTABLE VIAL IVPUSH ONE (12:11)
[2024-05-05] MEDS: hydrALAZINE HCL 20 MG/ML VIAL IVPUSH PRN (21:07)
[2024-05-05] MEDS: TAMSULOSIN HCL 0.4 MG CAP PO SCH (21:08)
[2024-05-05] MEDS: ATORVASTATIN CA 40 MG TABLET (FP) PO SCH (21:09)
[2024-05-05] MEDS: CHLORHEXIDINE GLUCONATE 4% CLEANSER FOR DECOLONIZATION TP SCH (21:09)
[2024-05-05] MEDS ORDERED: hydrALAZINE HCL 20 MG/ML VIAL IVPUSH SCH (22:00)
[2024-05-06 07:13] LABS: HEMATOCRIT 28.8 % (35.4-49); HEMOGLOBIN 8.9 GM/dL (11.7-16.9); MCH 26.4 pg (25.7-33.7); MCHC 30.7 g/dl (32.0-35.9); MEAN PLT VOLUME 9.9 fl (7.5-11.1); PLATELET COUNT 94 10^3/uL (134-434); RBC 3.36 M/mm3 (4.00-5.60); RDW 16.8 % (11.9-15.9); WHITE BLOOD COUNT 4.6 K/mm3 (4.0-10.0)
[2024-05-06 07:39] LABS: CALCIUM 8.3 mg/dL (8.5-10.1)
[2024-05-06 07:40] LABS: ALBUMIN 2.4 g/dl (3.4-5.0); BLOOD UREA NITROGEN 23.6 mg/dL (7-18)
[2024-05-06 07:44] LABS: BILIRUBIN,TOTAL 0.4 mg/dL (0.2-1); TOT PROT 6.1 g/dl (6.4-8.2)
[2024-05-06] MEDS ORDERED: ALBUTEROL SO4 2.5/IPRATROPIUM 0.5 INH SOL 3 ML VIAL.NEB. NEB PRN (07:51)
[2024-05-06] MEDS: ALBUTEROL SO4 0.083% IH SOL 2.5 MG/3 ML VIAL.NEB. NEB PRN (08:36)
[2024-05-06] MEDS: ACETYLCYSTEINE 20% 200MG/ML 4 ML VIAL *FOR ORAL / INH USE ONLY NEB ONE (08:36)
[2024-05-06 08:58] LABS: ANISOCYTOSIS 2+; MACROCYTOSIS 0
[2024-05-06] MEDS: FUROSEMIDE 40 MG/4 ML INJECTABLE VIAL IVPUSH SCH (09:10)
[2024-05-06] MEDS ORDERED: PIPERACILLIN/TAZOB 2.25 GM 2.25 GM in DEXTROSE 5%-WATER - 50 ML IVPB SCH (10:00)
[2024-05-06] MEDS: hydrALAZINE HCL 20 MG/ML VIAL IVPUSH SCH (11:37)
[2024-05-06 11:44] LABS: ARTERIAL BLD GAS O2 SATURATION 97.1 % (95-98); ARTERIAL BLOOD GAS BASE EXCESS -1.8 mmol/L (-2-2); ARTERIAL BLOOD GAS PO2 107.7 mmHg (80-100); ARTERIAL BLOOD GAS pH 7.259 (7.350-7.450)
[2024-05-06 11:45] LABS: ALLENS TEST POSITIVE
[2024-05-06] MEDS: ALBUMIN HUMAN 25% 100 ML VIAL IV SCH (16:57)
[2024-05-06] MEDS: FUROSEMIDE 40 MG/4 ML INJECTABLE VIAL IVPUSH ONE (16:57)
[2024-05-06] MEDS: ALBUMIN HUMAN 25% 12.5 GM/50 ML VIAL IV SCH (17:47)
[2024-05-06] MEDS: DEXMEDETOMIDINE PREMIX 400 MCG/100 ML BAG IVPB SCH (19:55)
[2024-05-06 21:26] LABS: ARTERIAL BLD GAS O2 SATURATION 98.6 % (95-98); ARTERIAL BLOOD GAS BASE EXCESS 2.1 mmol/L (-2-2); ARTERIAL BLOOD GAS PO2 146.5 mmHg (80-100); ARTERIAL BLOOD GAS pH 7.288 (7.350-7.450)
[2024-05-07 06:06] LABS: ARTERIAL BLD GAS O2 SATURATION 97.6 % (95-98); ARTERIAL BLOOD GAS BASE EXCESS 2.3 mmol/L (-2-2); ARTERIAL BLOOD GAS PO2 113.3 mmHg (80-100); ARTERIAL BLOOD GAS pH 7.301 (7.350-7.450)
[2024-05-07 06:10] LABS: BASO % 0.7 % (0-2.0); EOS % 1.8 % (0-4.5); HEMOGLOBIN 8.3 GM/dL (11.7-16.9); LYMPH % 9.1 % (8-40); MCH 26.3 pg (25.7-33.7); MCHC 30.9 g/dl (32.0-35.9); MEAN CELL VOLUME 85.2 fl (80-96); MEAN PLT VOLUME 9.5 fl (7.5-11.1); MONO % 14.3 % (3.8-10.2); NEUT % 74.1 % (42.8-82.8); PLATELET COUNT 78 10^3/uL (134-434); RBC 3.17 M/mm3 (4.00-5.60); RDW 16.8 % (11.9-15.9); WHITE BLOOD COUNT 4.2 K/mm3 (4.0-10.0)
[2024-05-07 06:11] LABS: ALLENS TEST POSITIVE; VENT MODE S/T; VENT RATE 22
[2024-05-07 06:22] LABS: POTASSIUM 3.9 mmol/L (3.5-5.1)
[2024-05-07 06:24] LABS: CALCIUM 8.4 mg/dL (8.5-10.1)
[2024-05-07 06:25] LABS: BLOOD UREA NITROGEN 26.3 mg/dL (7-18)
[2024-05-07 06:28] LABS: CREATININE 1.9 mg/dL (0.55-1.3)
[2024-05-07 06:29] LABS: BILIRUBIN,TOTAL 0.6 mg/dL (0.2-1); TOT PROT 6.2 g/dl (6.4-8.2)
[2024-05-07 06:33] LABS: ALBUMIN 3.2 g/dl (3.4-5.0)
[2024-05-08 07:23] LABS: ARTERIAL BLD GAS O2 SATURATION 98.7 % (95-98); ARTERIAL BLOOD GAS BASE EXCESS 0.3 mmol/L (-2-2); ARTERIAL BLOOD GAS PO2 148.5 mmHg (80-100); ARTERIAL BLOOD GAS pH 7.307 (7.350-7.450)
[2024-05-08 07:53] LABS: POTASSIUM 3.6 mmol/L (3.5-5.1)
[2024-05-08 07:57] LABS: CALCIUM 8.3 mg/dL (8.5-10.1)
[2024-05-08 07:58] LABS: ALBUMIN 2.8 g/dl (3.4-5.0); BLOOD UREA NITROGEN 30.6 mg/dL (7-18); MAGNESIUM 1.3 mg/dL (1.8-2.4)
[2024-05-08 08:02] LABS: BILIRUBIN,TOTAL 0.6 mg/dL (0.2-1); TOT PROT 5.9 g/dl (6.4-8.2)
[2024-05-08 08:05] LABS: BASO % 0.5 % (0-2.0); EOS % 1.8 % (0-4.5); HEMATOCRIT 27.2 % (35.4-49); HEMOGLOBIN 8.5 GM/dL (11.7-16.9); LYMPH % 10.5 % (8-40); MCH 26.3 pg (25.7-33.7); MCHC 31.3 g/dl (32.0-35.9); MEAN CELL VOLUME 84.1 fl (80-96); MEAN PLT VOLUME 10.2 fl (7.5-11.1); NEUT % 71.2 % (42.8-82.8); PLATELET COUNT 77 10^3/uL (134-434); RBC 3.24 M/mm3 (4.00-5.60); RDW 17.1 % (11.9-15.9); WHITE BLOOD COUNT 3.8 K/mm3 (4.0-10.0)
[2024-05-09 06:30] LABS: ARTERIAL BLOOD GAS BASE EXCESS 2.9 mmol/L (-2-2); ARTERIAL BLOOD GAS PO2 124.6 mmHg (80-100); ARTERIAL BLOOD GAS pH 7.288 (7.350-7.450)
[2024-05-09 07:04] LABS: POTASSIUM 3.4 mmol/L (3.5-5.1)
[2024-05-09 07:07] LABS: CALCIUM 8.4 mg/dL (8.5-10.1)
[2024-05-09 07:08] LABS: ALBUMIN 2.7 g/dl (3.4-5.0)
[2024-05-09 07:09] LABS: BLOOD UREA NITROGEN 37.6 mg/dL (7-18); MAGNESIUM 1.3 mg/dL (1.8-2.4)
[2024-05-09 07:11] LABS: CREATININE 1.9 mg/dL (0.55-1.3)
[2024-05-09 07:12] LABS: BILIRUBIN,TOTAL 0.5 mg/dL (0.2-1)
[2024-05-09 08:00] LABS: BASO % 0.8 % (0-2.0); EOS % 1.8 % (0-4.5); LYMPH % 11.6 % (8-40); MCH 26.3 pg (25.7-33.7); MEAN CELL VOLUME 84.7 fl (80-96); MEAN PLT VOLUME 9.9 fl (7.5-11.1); MONO % 14.1 % (3.8-10.2); NEUT % 71.7 % (42.8-82.8); PLATELET COUNT 71 10^3/uL (134-434); RBC 3.42 M/mm3 (4.00-5.60); RDW 16.7 % (11.9-15.9); WHITE BLOOD COUNT 4.5 K/mm3 (4.0-10.0)
[2024-05-09] MEDS: MAGNESIUM 2GM/50ML STERILE WATER IVPB IVPB ONE (09:10)
[2024-05-09 09:19] LABS: PHOSPHOROUS 2.5 mg/dL (2.5-4.9)
[2024-05-09 11:25] LABS: ARTERIAL BLD GAS O2 SATURATION 98.6 % (95-98); ARTERIAL BLOOD GAS BASE EXCESS 2.6 mmol/L (-2-2); ARTERIAL BLOOD GAS pH 7.321 (7.350-7.450)
[2024-05-09 11:27] LABS: VENT MODE S/T
[2024-05-09 11:28] LABS: VENT RATE 26
[2024-05-09] MEDS: KCL 10 MEQ IVPB 10 MEQ/100 ML INFUS.BAG IVPB SCH (12:42)
[2024-05-09] MEDS: FUROSEMIDE 40 MG/4 ML INJECTABLE VIAL IVPUSH SCH (15:48)
[2024-05-09] MEDS: POTASSIUM PHOSPHATE 30 MM in DEXTROSE 5%-WATER - 250 ML IVPB ONE (17:46)
[2024-05-10 06:32] LABS: BASO % 0.6 % (0-2.0); HEMATOCRIT 26.9 % (35.4-49); HEMOGLOBIN 8.6 GM/dL (11.7-16.9); LYMPH % 8.6 % (8-40); MCH 26.5 pg (25.7-33.7); MCHC 31.8 g/dl (32.0-35.9); MEAN CELL VOLUME 83.4 fl (80-96); MEAN PLT VOLUME 9.9 fl (7.5-11.1); MONO % 13.6 % (3.8-10.2); NEUT % 75.2 % (42.8-82.8); PLATELET COUNT 66 10^3/uL (134-434); RBC 3.23 M/mm3 (4.00-5.60); RDW 16.6 % (11.9-15.9); WHITE BLOOD COUNT 4.8 K/mm3 (4.0-10.0)
[2024-05-10 06:46] LABS: POTASSIUM 3.5 mmol/L (3.5-5.1)
[2024-05-10 06:49] LABS: ALBUMIN 2.6 g/dl (3.4-5.0); BLOOD UREA NITROGEN 42.6 mg/dL (7-18); CALCIUM 8.3 mg/dL (8.5-10.1); MAGNESIUM 1.7 mg/dL (1.8-2.4)
[2024-05-10 06:53] LABS: CREATININE 1.9 mg/dL (0.55-1.3); PHOSPHOROUS 3.4 mg/dL (2.5-4.9)
[2024-05-10 06:55] LABS: BILIRUBIN,TOTAL 0.4 mg/dL (0.2-1); TOT PROT 5.8 g/dl (6.4-8.2)
[2024-05-10 06:56] LABS: ARTERIAL BLD GAS O2 SATURATION 98.6 % (95-98); ARTERIAL BLOOD GAS BASE EXCESS 0.9 mmol/L (-2-2); ARTERIAL BLOOD GAS PO2 143.3 mmHg (80-100); ARTERIAL BLOOD GAS pH 7.315 (7.350-7.450)
[2024-05-10] MEDS: MAGNESIUM SULF 50% (8.12 MEQ/2 ML-1 GM VIAL) IVPB ONE (09:13)
[2024-05-11 06:57] LABS: ARTERIAL BLD GAS O2 SATURATION 95.8 % (95-98); ARTERIAL BLOOD GAS BASE EXCESS 4.7 mmol/L (-2-2); ARTERIAL BLOOD GAS PO2 85.2 mmHg (80-100)
[2024-05-11 07:21] LABS: BASO % 0.4 % (0-2.0); EOS % 2.5 % (0-4.5); HEMATOCRIT 26.8 % (35.4-49); HEMOGLOBIN 8.4 GM/dL (11.7-16.9); LYMPH % 8.5 % (8-40); MCH 26.1 pg (25.7-33.7); MCHC 31.4 g/dl (32.0-35.9); MEAN CELL VOLUME 83.3 fl (80-96); MEAN PLT VOLUME 10.3 fl (7.5-11.1); MONO % 14.2 % (3.8-10.2); NEUT % 74.4 % (42.8-82.8); PLATELET COUNT 68 10^3/uL (134-434); RBC 3.22 M/mm3 (4.00-5.60); RDW 16.2 % (11.9-15.9); WHITE BLOOD COUNT 5.3 K/mm3 (4.0-10.0)
[2024-05-11 07:26] LABS: INR 1.07 (0.83-1.09); PROTHROMBIN TIME (PATIENT) 12.3 SEC (9.7-13.0)
[2024-05-11 07:36] LABS: BLOOD UREA NITROGEN 41.6 mg/dL (7-18); CALCIUM 7.9 mg/dL (8.5-10.1)
[2024-05-11 07:38] LABS: ALBUMIN 2.4 g/dl (3.4-5.0)
[2024-05-11 07:41] LABS: CREATININE 1.8 mg/dL (0.55-1.3)
[2024-05-11 07:42] LABS: BILIRUBIN,TOTAL 0.4 mg/dL (0.2-1); TOT PROT 5.4 g/dl (6.4-8.2)
[2024-05-11 08:34] LABS: MAGNESIUM 1.7 mg/dL (1.8-2.4)
[2024-05-11 08:37] LABS: PHOSPHOROUS 2.6 mg/dL (2.5-4.9)
[2024-05-11] MEDS: KCL 10 MEQ IVPB 10 MEQ/100 ML INFUS.BAG IVPB SCH (09:30)
[2024-05-11] MEDS: MAGNESIUM SULF 50% (8.12 MEQ/2 ML-1 GM VIAL) IVPB ONE (09:31)
[2024-05-11] MEDS: POTASSIUM PHOSPHATE 30 MM in DEXTROSE 5%-WATER - 500 ML IVPB ONE (11:15)
[2024-05-11] MEDS: POTASSIUM CHLORIDE 20 MEQ in AMINO ACIDS 4.25%/D5W 1,000 ML IV SCH (15:32)
[2024-05-11] MEDS: QUEtiapine FUMARATE 25 MG TABLET PO SCH (21:04)
[2024-05-11] MEDS: hydrALAZINE HCL 10 MG TABLET PO SCH (21:04)
[2024-05-11] MEDS: HEPARIN NA (PORCINE) 5,000 UNITS/ML 1ML VIAL SQ SCH (21:05)
[2024-05-12 07:14] LABS: BASO % 0.5 % (0-2.0); EOS % 3.6 % (0-4.5); HEMATOCRIT 30.6 % (35.4-49); HEMOGLOBIN 9.7 GM/dL (11.7-16.9); LYMPH % 6.1 % (8-40); MCH 26.1 pg (25.7-33.7); MCHC 31.7 g/dl (32.0-35.9); MEAN CELL VOLUME 82.3 fl (80-96); MEAN PLT VOLUME 10.2 fl (7.5-11.1); MONO % 8.5 % (3.8-10.2); NEUT % 81.3 % (42.8-82.8); PLATELET COUNT 83 10^3/uL (134-434); RBC 3.71 M/mm3 (4.00-5.60); RDW 16.5 % (11.9-15.9)
[2024-05-12 07:33] LABS: POTASSIUM 3.5 mmol/L (3.5-5.1)
[2024-05-12 07:37] LABS: CALCIUM 8.4 mg/dL (8.5-10.1)
[2024-05-12 07:38] LABS: ALBUMIN 2.7 g/dl (3.4-5.0); BLOOD UREA NITROGEN 41.7 mg/dL (7-18); MAGNESIUM 1.8 mg/dL (1.8-2.4)
[2024-05-12 07:41] LABS: CREATININE 1.7 mg/dL (0.55-1.3)
[2024-05-12 07:43] LABS: BILIRUBIN,TOTAL 0.8 mg/dL (0.2-1); TOT PROT 6.3 g/dl (6.4-8.2)
[2024-05-12] MEDS: FUROSEMIDE 40 MG/4 ML INJECTABLE VIAL IVPUSH SCH (09:26)
[2024-05-12] MEDS: FAT EMULSION/OLIVE/SOY/PHOSPHO 250 ML IV SCH (21:23)
[2024-05-12] MEDS ORDERED: FAT EMULSION/OLIVE/SOY (CLINOLIPID) 250 ML EMULSION IV SCH (22:00)
[2024-05-13 07:38] LABS: HEMATOCRIT 29.4 % (35.4-49); HEMOGLOBIN 9.3 GM/dL (11.7-16.9); MCHC 31.5 g/dl (32.0-35.9); MEAN CELL VOLUME 82.5 fl (80-96); MEAN PLT VOLUME 10.2 fl (7.5-11.1); PLATELET COUNT 85 10^3/uL (134-434); RBC 3.57 M/mm3 (4.00-5.60); RDW 16.5 % (11.9-15.9); WHITE BLOOD COUNT 15.9 K/mm3 (4.0-10.0)
[2024-05-13 07:52] LABS: POTASSIUM 3.9 mmol/L (3.5-5.1)
[2024-05-13 07:56] LABS: ALBUMIN 2.8 g/dl (3.4-5.0); CALCIUM 8.3 mg/dL (8.5-10.1); MAGNESIUM 1.8 mg/dL (1.8-2.4)
[2024-05-13 07:59] LABS: CREATININE 1.8 mg/dL (0.55-1.3); PHOSPHOROUS 3.2 mg/dL (2.5-4.9)
[2024-05-13 08:00] LABS: BILIRUBIN,TOTAL 0.7 mg/dL (0.2-1); TOT PROT 6.6 g/dl (6.4-8.2)
[2024-05-13 08:26] LABS: ANISOCYTOSIS 2+; MACROCYTOSIS 0
[2024-05-13] MEDS ORDERED: DEXTROSE 50%-WATER 25 GM/50 ML DISP.SYRIN ONE (11:13)
[2024-05-13] MEDS: DEXTROSE 50%-WATER 25 GM/50 ML DISP.SYRIN IVPUSH ONE (11:19)
[2024-05-13] MEDS ORDERED: DEXTROSE 50%-WATER 25 GM/50 ML DISP.SYRIN IVPUSH PRN (14:11)
[2024-05-13] MEDS ORDERED: RAPID SEQUENCE INTUBATION KIT NR ONE (15:55)
[2024-05-13] MEDS ORDERED: FENTANYL NS IVPB 500 MCG/100 ML BAG IVPB ONE (16:16)
[2024-05-13] MEDS: ETOMIDATE 40 MG/20 ML VIAL IVPUSH ONE (16:40)
[2024-05-13] MEDS: ROCURONIUM BROMIDE 50 MG/5 ML VIAL IV ONE (16:40)
[2024-05-13] MEDS: FENTANYL IVPB 500 MCG/100 ML BAG IVPB SCH (16:41)
[2024-05-13] MEDS: PROPOFOL 1,000,000 MCG/100 ML VIAL IVPB SCH (16:41)
[2024-05-13 16:55] LABS: ARTERIAL BLD GAS O2 SATURATION 96.1 % (95-98); ARTERIAL BLOOD GAS BASE EXCESS 3.5 mmol/L (-2-2); ARTERIAL BLOOD GAS PO2 83.5 mmHg (80-100); ARTERIAL BLOOD GAS pH 7.394 (7.350-7.450)
[2024-05-13 16:59] LABS: ALLENS TEST POSITIVE
[2024-05-13 17:00] LABS: VENT MODE A/C; VENT RATE 14
[2024-05-13] MEDS: FENTANYL NS IVPB 500 MCG/100 ML BAG IVPB SCH (17:53)
[2024-05-13] MEDS: MUPIROCIN 2% TOPICAL OINTMENT FOR DECOLONIZATION NS SCH (21:32)
[2024-05-13] MEDS: FAMOTIDINE 20 MG/50 ML IVPB 20 MG/50 ML MG IVPB ONE (21:34)
[2024-05-13] MEDS: CHLORHEXIDINE GLUCONATE 4% CLEANSER FOR DECOLONIZATION TP SCH (21:34)
[2024-05-13 23:53] LABS: BF WBC & OTHER NUCLEATED CELLS 101 /mm3
[2024-05-14 01:09] LABS: BODY FLUID BASOPHIL 1 %; BODY FLUID MACROPHAGES 50 %; BODY FLUID MONOCYTE 4 %
[2024-05-14 05:36] LABS: ARTERIAL BLD GAS O2 SATURATION 95.7 % (95-98); ARTERIAL BLOOD GAS BASE EXCESS 2.6 mmol/L (-2-2)
[2024-05-14 05:53] LABS: VENT MODE A/C; VENT RATE 16
[2024-05-14 06:41] LABS: HEMATOCRIT 24.9 % (35.4-49); HEMOGLOBIN 8.1 GM/dL (11.7-16.9); MCH 26.8 pg (25.7-33.7); MCHC 32.4 g/dl (32.0-35.9); MEAN CELL VOLUME 82.8 fl (80-96); MEAN PLT VOLUME 9.7 fl (7.5-11.1); PLATELET COUNT 71 10^3/uL (134-434); RBC 3.01 M/mm3 (4.00-5.60); RDW 15.8 % (11.9-15.9)
[2024-05-14 07:14] LABS: POTASSIUM 3.4 mmol/L (3.5-5.1)
[2024-05-14 07:16] LABS: CALCIUM 8.4 mg/dL (8.5-10.1)
[2024-05-14 07:17] LABS: ALBUMIN 2.4 g/dl (3.4-5.0); BLOOD UREA NITROGEN 53.4 mg/dL (7-18); MAGNESIUM 1.7 mg/dL (1.8-2.4)
[2024-05-14 07:20] LABS: CREATININE 2.3 mg/dL (0.55-1.3); PHOSPHOROUS 3.2 mg/dL (2.5-4.9)
[2024-05-14 07:21] LABS: BILIRUBIN,TOTAL 0.6 mg/dL (0.2-1)
[2024-05-14 07:22] LABS: TOT PROT 5.6 g/dl (6.4-8.2)
[2024-05-14] MEDS: KCL 20 MEQ PREMIX BAG 20 MEQ/100 ML INFUS.BAG IVPB SCH (09:03)
[2024-05-14] MEDS: MAGNESIUM SULF 50% (8.12 MEQ/2 ML-1 GM VIAL) IVPB ONE (09:07)
[2024-05-14 09:29] LABS: ANISOCYTOSIS 0; HELMET CELLS 0; HOWELL-JOLLY BODIES 0; MACROCYTOSIS 0; OVALOCYTE 0; ROULEAU 0; SICKELED CELLS 0; TARGET CELLS 0; TEAR DROP CELLS 0; TOXIC GRANULATION 0
[2024-05-14] MEDS ORDERED: ASCORBIC ACID 500 MG/5 ML UNIT DOSE CUP GT SCH (12:00)
[2024-05-14] MEDS ORDERED: AMINO ACIDS 4.25%/D5W 1,000 ML IV SCH (15:30)
[2024-05-14] MEDS: METOCLOPRAMIDE HCL INJECTION 10 MG/2 ML VIAL IVPUSH SCH (16:12)
[2024-05-14] MEDS: SODIUM CHLORIDE 500 ML IV STA (16:15)
[2024-05-14] MEDS: LACTATED RINGERS SOLUTION 1,000 ML/1,000 ML INFUS.BAG IV STA (16:20)
[2024-05-14] MEDS: AMINO ACIDS 4.25%/D5W 1,000 ML IV SCH (18:15)
[2024-05-14] MEDS: MULTIVIT INJ. ADULT COMBO WITH VIT K 1 COMBO 10 ML VIAL IV SCH (18:16)
[2024-05-14] MEDS: POLYETHYLENE GLYCOL (HEALTHYLAX) 3350 17 GM PACKET GT SCH (21:12)
[2024-05-15 06:13] LABS: ARTERIAL BLD GAS O2 SATURATION 99.1 % (95-98); ARTERIAL BLOOD GAS PO2 168.8 mmHg (80-100); ARTERIAL BLOOD GAS pH 7.393 (7.350-7.450)
[2024-05-15 06:23] LABS: ALLENS TEST POSITIVE; VENT MODE A/C; VENT RATE 16
[2024-05-15 06:57] LABS: POTASSIUM 3.7 mmol/L (3.5-5.1)
[2024-05-15 07:00] LABS: ALBUMIN 2.1 g/dl (3.4-5.0); CALCIUM 7.8 mg/dL (8.5-10.1)
[2024-05-15 07:01] LABS: BLOOD UREA NITROGEN 55.8 mg/dL (7-18); MAGNESIUM 1.9 mg/dL (1.8-2.4)
[2024-05-15 07:04] LABS: CREATININE 2.6 mg/dL (0.55-1.3); PHOSPHOROUS 3.2 mg/dL (2.5-4.9)
[2024-05-15 07:05] LABS: BILIRUBIN,TOTAL 0.6 mg/dL (0.2-1); TOT PROT 5.6 g/dl (6.4-8.2)
[2024-05-15 07:35] LABS: BASO % 0.3 % (0-2.0); EOS % 2.6 % (0-4.5); HEMATOCRIT 23.8 % (35.4-49); HEMOGLOBIN 7.8 GM/dL (11.7-16.9); MCHC 32.6 g/dl (32.0-35.9); MEAN CELL VOLUME 82.6 fl (80-96); MEAN PLT VOLUME 10.3 fl (7.5-11.1); MONO % 8.5 % (3.8-10.2); NEUT % 82.6 % (42.8-82.8); PLATELET COUNT 64 10^3/uL (134-434); RBC 2.88 M/mm3 (4.00-5.60); RDW 16.3 % (11.9-15.9); WHITE BLOOD COUNT 6.5 K/mm3 (4.0-10.0)
[2024-05-15] MEDS ORDERED: DOCUSATE NA 100 MG/10 ML UNIT-DOSE CUPS PO PRN (09:30)
[2024-05-15] MEDS ORDERED: MULTIVIT-MINERALS ORAL LIQUID GT SCH (10:00)
[2024-05-15] MEDS: QUEtiapine FUMARATE 25 MG TABLET GT SCH (10:45)
[2024-05-15] MEDS: SERTRALINE HCL 25 MG TABLET (FP) NR SCH (10:45)
[2024-05-15] MEDS: DOCUSATE NA 100 MG/10 ML UNIT-DOSE CUPS PO SCH (10:52)
[2024-05-15] MEDS: MIDODRINE HCL 5 MG TABLET PO SCH (10:52)
[2024-05-15] MEDS: FINASTERIDE 5 MG TABLET (FP) GT SCH (11:46)
[2024-05-15 12:03] LABS: EPI CELLS 12 /uL (0-25.1); HYALINE CASTS 1 /uL (0-3.1); PH,URINE 5.5 (5.0-8.0); URINE APPEARANCE CLOUDY; URINE BACTERIA 263 /uL (0-1359); URINE BILIRUBIN NEGATIVE (NEGATIVE); URINE COLOR YELLOW; URINE GLUCOSE (UA) NEGATIVE (NEGATIVE); URINE KETONE NEGATIVE (NEGATIVE); URINE LEUK ESTERASE 3+ (NEGATIVE); URINE NITRITE NEGATIVE (NEGATIVE); URINE PROTEIN 1+ (NEGATIVE); URINE WBC 1865 /uL (0-25.8)
[2024-05-15 12:44] LABS: URINE RBC 92 /uL (0-23.9)
[2024-05-15 12:45] LABS: YEAST PRESENT (NEGATIVE)
[2024-05-15] MEDS: NOREPINEPHRINE BITARTRATE/D5W 8 MG/250 ML BAG IVPB SCH (19:16)
[2024-05-15] MEDS: [UNRECOGNIZED DRUG - OTHER] IV SCH (20:00)
[2024-05-15] MEDS: MULTIVIT IV SCH (20:00)
[2024-05-15] MEDS: AMINO ACIDS IV SCH (20:00)
[2024-05-15] MEDS: FAT EMUL/SOY/MCT/OLIV/FISH OIL 250 ML IV SCH (21:32)
[2024-05-16 07:26] LABS: HEMATOCRIT 24.8 % (35.4-49); MCH 26.6 pg (25.7-33.7); MCHC 32.4 g/dl (32.0-35.9); MEAN CELL VOLUME 82.1 fl (80-96); MEAN PLT VOLUME 10.3 fl (7.5-11.1); PLATELET COUNT 81 10^3/uL (134-434); RBC 3.02 M/mm3 (4.00-5.60); RDW 15.9 % (11.9-15.9); WHITE BLOOD COUNT 4.9 K/mm3 (4.0-10.0)
[2024-05-16 07:31] LABS: POTASSIUM 3.9 mmol/L (3.5-5.1)
[2024-05-16 07:40] LABS: CALCIUM 7.9 mg/dL (8.5-10.1)
[2024-05-16 07:41] LABS: ALBUMIN 2.2 g/dl (3.4-5.0); BLOOD UREA NITROGEN 65.6 mg/dL (7-18)
[2024-05-16 07:44] LABS: CREATININE 2.9 mg/dL (0.55-1.3)
[2024-05-16 07:45] LABS: BILIRUBIN,TOTAL 0.8 mg/dL (0.2-1); TOT PROT 6.1 g/dl (6.4-8.2)
[2024-05-16 08:14] LABS: ARTERIAL BLD GAS O2 SATURATION 97.9 % (95-98); ARTERIAL BLOOD GAS BASE EXCESS 0.4 mmol/L (-2-2); ARTERIAL BLOOD GAS PO2 116.9 mmHg (80-100)
[2024-05-16 08:19] LABS: ALLENS TEST POSITIVE; VENT MODE A/C
[2024-05-16 08:20] LABS: VENT RATE 16
[2024-05-16 09:50] LABS: ANISOCYTOSIS 0; MACROCYTOSIS 0
[2024-05-16] MEDS: DOXAZOSIN MESYLATE 4 MG TABLET GT SCH (10:04)
[2024-05-16 11:29] LABS: ARTERIAL BLD GAS O2 SATURATION 98.8 % (95-98); ARTERIAL BLOOD GAS PO2 142.2 mmHg (80-100); ARTERIAL BLOOD GAS pH 7.385 (7.350-7.450)
[2024-05-16 11:31] LABS: ALLENS TEST POSITIVE
[2024-05-16 11:34] LABS: VENT MODE A/C; VENT RATE 16
[2024-05-16] MEDS: VANCOMYCIN PREMIX 1.5 GM 1,500 MG/300 ML BAG IVPB ONE (14:18)
[2024-05-16] MEDS ORDERED: INSULIN ASPART SLIDING SCALE (NOVOLOG) 1 VIAL SQ ONE (17:54)
[2024-05-16] MEDS: hydrALAZINE HCL 10 MG TABLET GT SCH (21:27)
[2024-05-16] MEDS: ATORVASTATIN CA 40 MG TABLET (FP) GT SCH (21:28)
[2024-05-16] MEDS: LABETALOL HCL 100 MG TABLET (FP) GT SCH (21:29)
[2024-05-16] MEDS: LACTULOSE 20 GM/30 ML UDC (FOR ORAL USE ONLY) PO SCH (22:00)
[2024-05-17 06:51] LABS: ARTERIAL BLD GAS O2 SATURATION 98.8 % (95-98); ARTERIAL BLOOD GAS BASE EXCESS 0.7 mmol/L (-2-2); ARTERIAL BLOOD GAS PO2 140.4 mmHg (80-100); ARTERIAL BLOOD GAS pH 7.401 (7.350-7.450)
[2024-05-17 07:27] LABS: BASO % 0.4 % (0-2.0); EOS % 2.8 % (0-4.5); HEMATOCRIT 23.7 % (35.4-49); HEMOGLOBIN 7.6 GM/dL (11.7-16.9); LYMPH % 3.9 % (8-40); MCH 26.2 pg (25.7-33.7); MEAN CELL VOLUME 81.8 fl (80-96); MEAN PLT VOLUME 9.3 fl (7.5-11.1); MONO % 16.3 % (3.8-10.2); NEUT % 76.6 % (42.8-82.8); PLATELET COUNT 83 10^3/uL (134-434); WHITE BLOOD COUNT 6.4 K/mm3 (4.0-10.0)
[2024-05-17 07:51] LABS: POTASSIUM 3.3 mmol/L (3.5-5.1)
[2024-05-17 07:59] LABS: CALCIUM 8.1 mg/dL (8.5-10.1)
[2024-05-17 08:00] LABS: ALBUMIN 2.1 g/dl (3.4-5.0); BLOOD UREA NITROGEN 65.4 mg/dL (7-18); MAGNESIUM 2.1 mg/dL (1.8-2.4)
[2024-05-17 08:03] LABS: PHOSPHOROUS 2.6 mg/dL (2.5-4.9)
[2024-05-17 08:04] LABS: CREATININE 2.7 mg/dL (0.55-1.3)
[2024-05-17 08:05] LABS: BILIRUBIN,TOTAL 0.9 mg/dL (0.2-1); TOT PROT 5.8 g/dl (6.4-8.2)
[2024-05-17] MEDS ORDERED: POTASSIUM CHLORIDE ORAL LIQUID 20 MEQ/15 ML PO ONE (10:30)
[2024-05-17] MEDS: POTASSIUM CHLORIDE ORAL LIQUID 20 MEQ/15 ML GT ONE (11:25)
[2024-05-17] MEDS: amLODIPine BESYLATE 2.5 MG TABLET (FP) GT SCH (11:25)
[2024-05-17 14:10] LABS: BODY FLUID ALBUMIN 1.7 g/dL (Not Estab.)
[2024-05-17] MEDS: KCL 10 MEQ IVPB 10 MEQ/100 ML INFUS.BAG IVPB SCH (16:57)
[2024-05-18 07:19] LABS: HEMATOCRIT 23.1 % (35.4-49); HEMOGLOBIN 7.4 GM/dL (11.7-16.9); MCH 26.2 pg (25.7-33.7); MEAN CELL VOLUME 81.8 fl (80-96); MEAN PLT VOLUME 9.1 fl (7.5-11.1); PLATELET COUNT 103 10^3/uL (134-434); RBC 2.83 M/mm3 (4.00-5.60); RDW 16.1 % (11.9-15.9); WHITE BLOOD COUNT 6.2 K/mm3 (4.0-10.0)
[2024-05-18 07:35] LABS: POTASSIUM 3.9 mmol/L (3.5-5.1)
[2024-05-18 07:37] LABS: ALBUMIN 1.9 g/dl (3.4-5.0); BLOOD UREA NITROGEN 67.4 mg/dL (7-18); CALCIUM 7.7 mg/dL (8.5-10.1)
[2024-05-18 07:40] LABS: CREATININE 2.5 mg/dL (0.55-1.3)
[2024-05-18 07:42] LABS: BILIRUBIN,TOTAL 0.8 mg/dL (0.2-1); TOT PROT 5.7 g/dl (6.4-8.2)
[2024-05-18 08:52] LABS: ANISOCYTOSIS 0; MACROCYTOSIS 0
[2024-05-18] MEDS: VANCOMYCIN/WATER FOR INJ (PEG) 1 GM/200 ML BAG IVPB ONE (12:14)
[2024-05-19 07:14] LABS: HEMATOCRIT 22.6 % (35.4-49); HEMOGLOBIN 7.3 GM/dL (11.7-16.9); MCH 26.2 pg (25.7-33.7); MCHC 32.3 g/dl (32.0-35.9); MEAN PLT VOLUME 8.5 fl (7.5-11.1); PLATELET COUNT 125 10^3/uL (134-434); RBC 2.79 M/mm3 (4.00-5.60); RDW 16.6 % (11.9-15.9); WHITE BLOOD COUNT 6.2 K/mm3 (4.0-10.0)
[2024-05-19 07:28] LABS: CALCIUM 7.9 mg/dL (8.5-10.1)
[2024-05-19 07:29] LABS: ALBUMIN 1.9 g/dl (3.4-5.0); BLOOD UREA NITROGEN 67.2 mg/dL (7-18); MAGNESIUM 2.2 mg/dL (1.8-2.4)
[2024-05-19 07:31] LABS: BILIRUBIN,TOTAL 0.7 mg/dL (0.2-1); TOT PROT 5.8 g/dl (6.4-8.2)
[2024-05-19 07:32] LABS: CREATININE 2.4 mg/dL (0.55-1.3)
[2024-05-19 07:34] LABS: PHOSPHOROUS 3.6 mg/dL (2.5-4.9)
[2024-05-20] MEDS: AMINO ACIDS/PROTEIN HYDROLYS 30 ML LIQUID.PKT GT SCH (10:06)
[2024-05-20] MEDS: FENTANYL NS IVPB 500 MCG/100 ML BAG IVPB SCH (18:44)
[2024-05-21] MEDS: CASPOFUNGIN ACETATE 70 MG in SODIUM CHLORIDE 250 ML IVPB ONE (13:17)
[2024-05-21] MEDS: VANCOMYCIN/WATER FOR INJ (PEG) 1,000 MG/200 ML BAG IVPB ONE (13:25)
[2024-05-21] MEDS ORDERED: COLLAGENASE CLOSTRIDIUM HIST. 30 GRAMS TUBE TP SCH (16:15)
[2024-05-22 06:48] LABS: HEMATOCRIT 20.7 % (35.4-49); MCH 26.7 pg (25.7-33.7); MCHC 32.7 g/dl (32.0-35.9); MEAN CELL VOLUME 81.5 fl (80-96); MEAN PLT VOLUME 7.9 fl (7.5-11.1); PLATELET COUNT 216 10^3/uL (134-434); RBC 2.54 M/mm3 (4.00-5.60); RDW 16.4 % (11.9-15.9); WHITE BLOOD COUNT 9.9 K/mm3 (4.0-10.0)
[2024-05-22 07:00] LABS: HEMOGLOBIN 6.8 GM/dL (11.7-16.9)
[2024-05-22 07:10] LABS: POTASSIUM 3.8 mmol/L (3.5-5.1)
[2024-05-22 07:12] LABS: ALBUMIN 1.8 g/dl (3.4-5.0); BLOOD UREA NITROGEN 71.1 mg/dL (7-18); MAGNESIUM 2.3 mg/dL (1.8-2.4)
[2024-05-22 07:15] LABS: CREATININE 2.2 mg/dL (0.55-1.3)
[2024-05-22 07:17] LABS: TOT PROT 5.9 g/dl (6.4-8.2)
[2024-05-22] MEDS: COLLAGENASE CLOSTRIDIUM HIST. 30 GRAMS TUBE TP SCH (09:19)
[2024-05-22] MEDS: ACETAMINOPHEN 1000 MG/100 ML BAG IVPB PRN (10:50)
[2024-05-22] MEDS ORDERED: MEROPENEM 1 GM VIAL (RESTRICTED TO ID) IVPB ONE (13:10)
[2024-05-22] MEDS: MEROPENEM 1 GM in DEXTROSE 5%-WATER 100 ML IVPB SCH (13:23)
[2024-05-22] MEDS: CASPOFUNGIN ACETATE 50 MG in SODIUM CHLORIDE 250 ML IVPB SCH (13:27)
[2024-05-22] MEDS: VANCOMYCIN ORAL SOLUTION 125 MG/2.5 ML GT SCH (22:11)
[2024-05-23 06:52] LABS: BASO % 0.3 % (0-2.0); EOS % 0.7 % (0-4.5); HEMATOCRIT 24.4 % (35.4-49); HEMOGLOBIN 7.8 GM/dL (11.7-16.9); MCH 26.1 pg (25.7-33.7); MEAN CELL VOLUME 81.7 fl (80-96); MEAN PLT VOLUME 8.5 fl (7.5-11.1); MONO % 8.9 % (3.8-10.2); NEUT % 85.1 % (42.8-82.8); PLATELET COUNT 267 10^3/uL (134-434); RBC 2.99 M/mm3 (4.00-5.60); RDW 15.9 % (11.9-15.9); WHITE BLOOD COUNT 12.5 K/mm3 (4.0-10.0)
[2024-05-23 07:09] LABS: POTASSIUM 3.9 mmol/L (3.5-5.1)
[2024-05-23 07:14] LABS: CALCIUM 7.9 mg/dL (8.5-10.1)
[2024-05-23 07:15] LABS: ALBUMIN 1.9 g/dl (3.4-5.0); BLOOD UREA NITROGEN 73.7 mg/dL (7-18); MAGNESIUM 2.2 mg/dL (1.8-2.4)
[2024-05-23 07:18] LABS: CREATININE 2.2 mg/dL (0.55-1.3)
[2024-05-23 07:19] LABS: BILIRUBIN,TOTAL 0.6 mg/dL (0.2-1); TOT PROT 6.1 g/dl (6.4-8.2)
[2024-05-23 15:03] LABS: PHOSPHOROUS 4.9 mg/dL (2.5-4.9)
[2024-05-24 06:39] LABS: BASO % 0.6 % (0-2.0); EOS % 1.6 % (0-4.5); HEMATOCRIT 23.1 % (35.4-49); HEMOGLOBIN 7.7 GM/dL (11.7-16.9); LYMPH % 8.5 % (8-40); MCH 27.2 pg (25.7-33.7); MCHC 33.5 g/dl (32.0-35.9); MEAN CELL VOLUME 81.2 fl (80-96); MONO % 8.4 % (3.8-10.2); NEUT % 80.9 % (42.8-82.8); PLATELET COUNT 316 10^3/uL (134-434); RBC 2.85 M/mm3 (4.00-5.60); RDW 15.8 % (11.9-15.9); WHITE BLOOD COUNT 10.9 K/mm3 (4.0-10.0)
[2024-05-24 06:49] LABS: POTASSIUM 3.5 mmol/L (3.5-5.1)
[2024-05-24 06:52] LABS: ALBUMIN 1.8 g/dl (3.4-5.0); CALCIUM 8.1 mg/dL (8.5-10.1)
[2024-05-24 06:53] LABS: BLOOD UREA NITROGEN 73.6 mg/dL (7-18); MAGNESIUM 2.2 mg/dL (1.8-2.4)
[2024-05-24 06:55] LABS: PHOSPHOROUS 4.3 mg/dL (2.5-4.9)
[2024-05-24 06:56] LABS: CREATININE 2.2 mg/dL (0.55-1.3)
[2024-05-24 06:57] LABS: BILIRUBIN,TOTAL 0.5 mg/dL (0.2-1); TOT PROT 6.1 g/dl (6.4-8.2)
[2024-05-24 13:21] LABS: INR 1.04 (0.83-1.09); PROTHROMBIN TIME (PATIENT) 11.7 SEC (9.7-13.0)
[2024-05-25 07:29] LABS: BASO % 0.6 % (0-2.0); EOS % 1.3 % (0-4.5); HEMATOCRIT 23.4 % (35.4-49); HEMOGLOBIN 7.6 GM/dL (11.7-16.9); LYMPH % 6.3 % (8-40); MCH 26.6 pg (25.7-33.7); MCHC 32.6 g/dl (32.0-35.9); MEAN CELL VOLUME 81.7 fl (80-96); MEAN PLT VOLUME 8.3 fl (7.5-11.1); MONO % 7.1 % (3.8-10.2); NEUT % 84.7 % (42.8-82.8); PLATELET COUNT 374 10^3/uL (134-434); RBC 2.87 M/mm3 (4.00-5.60); RDW 16.2 % (11.9-15.9); WHITE BLOOD COUNT 11.8 K/mm3 (4.0-10.0)
[2024-05-25 07:46] LABS: MAGNESIUM 2.3 mg/dL (1.8-2.4)
[2024-05-25 07:49] LABS: PHOSPHOROUS 3.9 mg/dL (2.5-4.9)
[2024-05-25 07:53] LABS: POTASSIUM 3.9 mmol/L (3.5-5.1)
[2024-05-25 07:56] LABS: ALBUMIN 1.8 g/dl (3.4-5.0); BLOOD UREA NITROGEN 75.6 mg/dL (7-18)
[2024-05-25 07:59] LABS: CREATININE 2.1 mg/dL (0.55-1.3)
[2024-05-25 08:00] LABS: TOT PROT 6.2 g/dl (6.4-8.2)
[2024-05-25 08:01] LABS: BILIRUBIN,TOTAL 0.4 mg/dL (0.2-1)
[2024-05-25] MEDS: VANCOMYCIN HCL 1,500 MG in DEXTROSE 5%-WATER - 500 ML IVPB ONE (17:50)
[2024-05-25] MEDS: LACTATED RINGERS SOLUTION 1,000 ML/1,000 ML INFUS.BAG IV SCH (20:11)
[2024-05-26 06:32] LABS: BASO % 0.6 % (0-2.0); HEMATOCRIT 22.4 % (35.4-49); HEMOGLOBIN 7.2 GM/dL (11.7-16.9); LYMPH % 7.6 % (8-40); MCH 26.4 pg (25.7-33.7); MCHC 32.4 g/dl (32.0-35.9); MEAN CELL VOLUME 81.5 fl (80-96); MEAN PLT VOLUME 8.4 fl (7.5-11.1); MONO % 8.2 % (3.8-10.2); NEUT % 82.6 % (42.8-82.8); PLATELET COUNT 423 10^3/uL (134-434); RBC 2.74 M/mm3 (4.00-5.60); RDW 16.1 % (11.9-15.9); WHITE BLOOD COUNT 11.3 K/mm3 (4.0-10.0)
[2024-05-26 06:50] LABS: POTASSIUM 4.2 mmol/L (3.5-5.1)
[2024-05-26 06:54] LABS: ALBUMIN 1.7 g/dl (3.4-5.0)
[2024-05-26 06:55] LABS: BLOOD UREA NITROGEN 75.3 mg/dL (7-18); MAGNESIUM 2.2 mg/dL (1.8-2.4)
[2024-05-26 06:58] LABS: PHOSPHOROUS 3.9 mg/dL (2.5-4.9)
[2024-05-26 06:59] LABS: BILIRUBIN,TOTAL 0.5 mg/dL (0.2-1); TOT PROT 6.1 g/dl (6.4-8.2)
[2024-05-26] MEDS: ROCURONIUM BROMIDE 50 MG/5 ML VIAL IVPUSH ONE (12:53)
[2024-05-27 06:47] LABS: BASO % 1.4 % (0-2.0); EOS % 0.9 % (0-4.5); HEMATOCRIT 23.2 % (35.4-49); HEMOGLOBIN 7.5 GM/dL (11.7-16.9); LYMPH % 6.8 % (8-40); MCH 26.3 pg (25.7-33.7); MCHC 32.3 g/dl (32.0-35.9); MEAN CELL VOLUME 81.3 fl (80-96); MEAN PLT VOLUME 8.5 fl (7.5-11.1); MONO % 9.6 % (3.8-10.2); NEUT % 81.3 % (42.8-82.8); PLATELET COUNT 449 10^3/uL (134-434); RBC 2.86 M/mm3 (4.00-5.60); RDW 16.4 % (11.9-15.9)
[2024-05-27 07:03] LABS: POTASSIUM 4.5 mmol/L (3.5-5.1)
[2024-05-27 07:10] LABS: CALCIUM 8.4 mg/dL (8.5-10.1)
[2024-05-27 07:11] LABS: ALBUMIN 1.8 g/dl (3.4-5.0); BLOOD UREA NITROGEN 69.6 mg/dL (7-18); MAGNESIUM 2.3 mg/dL (1.8-2.4)
[2024-05-27 07:14] LABS: PHOSPHOROUS 4.2 mg/dL (2.5-4.9)
[2024-05-27 07:15] LABS: TOT PROT 6.3 g/dl (6.4-8.2)
[2024-05-27 07:17] LABS: BILIRUBIN,TOTAL 0.5 mg/dL (0.2-1)
[2024-05-28] MEDS ORDERED: DEXTROSE 50%-WATER 25 GM/50 ML DISP.SYRIN IVPUSH PRN (06:43)
[2024-05-28] MEDS ORDERED: DEXTROSE 50%-WATER - 25 GM/50 ML VIAL IVPUSH PRN (06:43)
[2024-05-28 07:25] LABS: BASO % 0.8 % (0-2.0); EOS % 1.5 % (0-4.5); HEMATOCRIT 22.6 % (35.4-49); HEMOGLOBIN 7.3 GM/dL (11.7-16.9); LYMPH % 7.3 % (8-40); MCH 26.3 pg (25.7-33.7); MCHC 32.4 g/dl (32.0-35.9); MEAN CELL VOLUME 81.1 fl (80-96); MEAN PLT VOLUME 8.5 fl (7.5-11.1); MONO % 9.9 % (3.8-10.2); NEUT % 80.5 % (42.8-82.8); PLATELET COUNT 441 10^3/uL (134-434); RBC 2.79 M/mm3 (4.00-5.60); RDW 16.2 % (11.9-15.9); WHITE BLOOD COUNT 10.1 K/mm3 (4.0-10.0)
[2024-05-28 07:40] LABS: CALCIUM 8.4 mg/dL (8.5-10.1)
[2024-05-28 07:41] LABS: ALBUMIN 1.9 g/dl (3.4-5.0); BLOOD UREA NITROGEN 66.5 mg/dL (7-18); MAGNESIUM 2.3 mg/dL (1.8-2.4)
[2024-05-28 07:44] LABS: PHOSPHOROUS 4.6 mg/dL (2.5-4.9)
[2024-05-28 07:45] LABS: BILIRUBIN,TOTAL 0.5 mg/dL (0.2-1); TOT PROT 6.2 g/dl (6.4-8.2)
[2024-05-28] MEDS: INSULIN ASPART SLIDING SCALE (NOVOLOG) 1 VIAL SQ SCH (08:17)
[2024-05-28] MEDS: levETIRAcetam 500 MG/5 ML INJECTION VIAL IVPB SCH (09:20)
[2024-05-28] MEDS: DOXAZOSIN MESYLATE 4 MG TABLET GT SCH (09:20)
[2024-05-28] MEDS: FUROSEMIDE 40 MG/4 ML INJECTABLE VIAL IVPUSH SCH (09:20)
[2024-05-28] MEDS: AMINO ACIDS/PROTEIN HYDROLYS 30 ML LIQUID.PKT GT SCH (09:20)
[2024-05-28] MEDS: COLLAGENASE CLOSTRIDIUM HIST. 30 GRAMS TUBE TP SCH (09:22)
[2024-05-28] MEDS: amLODIPine BESYLATE 2.5 MG TABLET (FP) GT SCH (09:22)
[2024-05-28] MEDS: LABETALOL HCL 100 MG TABLET (FP) GT SCH (09:22)
[2024-05-28] MEDS: FINASTERIDE 5 MG TABLET (FP) GT SCH (09:23)
[2024-05-28] MEDS: QUEtiapine FUMARATE 25 MG TABLET GT SCH (09:23)
[2024-05-28] MEDS: SERTRALINE HCL 25 MG TABLET (FP) NR SCH (09:23)
[2024-05-28] MEDS: MEROPENEM 1 GM in DEXTROSE 5%-WATER 100 ML IVPB SCH (11:14)
[2024-05-28] MEDS ORDERED: CASPOFUNGIN ACETATE 50 MG in SODIUM CHLORIDE 250 ML IVPB SCH (14:00)
[2024-05-28] MEDS: VANCOMYCIN ORAL SOLUTION 125 MG/2.5 ML GT SCH (14:00)
[2024-05-28] MEDS: CASPOFUNGIN ACETATE 50 MG in SODIUM CHLORIDE 250 ML IVPB SCH (14:00)
[2024-05-28] MEDS: ATORVASTATIN CA 40 MG TABLET (FP) GT SCH (21:11)
[2024-05-28] MEDS: CHLORHEXIDINE GLUCONATE 4% CLEANSER FOR DECOLONIZATION TP SCH (21:28)
[2024-05-30 07:04] LABS: HEMATOCRIT 22.8 % (35.4-49); HEMOGLOBIN 7.4 GM/dL (11.7-16.9); MCH 26.6 pg (25.7-33.7); MCHC 32.4 g/dl (32.0-35.9); MEAN PLT VOLUME 8.7 fl (7.5-11.1); PLATELET COUNT 419 10^3/uL (134-434); RBC 2.78 M/mm3 (4.00-5.60); RDW 16.2 % (11.9-15.9); WHITE BLOOD COUNT 8.1 K/mm3 (4.0-10.0)
[2024-05-30 07:20] LABS: ALBUMIN 1.8 g/dl (3.4-5.0)
[2024-05-30 07:21] LABS: BLOOD UREA NITROGEN 59.2 mg/dL (7-18)
[2024-05-30 07:23] LABS: CREATININE 1.8 mg/dL (0.55-1.3)
[2024-05-30 07:25] LABS: BILIRUBIN,TOTAL 0.4 mg/dL (0.2-1); TOT PROT 6.6 g/dl (6.4-8.2)
[2024-06-01 08:05] LABS: HEMATOCRIT 21.4 % (35.4-49); MCH 26.3 pg (25.7-33.7); MCHC 32.6 g/dl (32.0-35.9); MEAN CELL VOLUME 80.7 fl (80-96); MEAN PLT VOLUME 8.1 fl (7.5-11.1); PLATELET COUNT 367 10^3/uL (134-434); RBC 2.65 M/mm3 (4.00-5.60); RDW 15.7 % (11.9-15.9); WHITE BLOOD COUNT 9.2 K/mm3 (4.0-10.0)
[2024-06-01 08:17] LABS: POTASSIUM 3.7 mmol/L (3.5-5.1)
[2024-06-01 08:19] LABS: CALCIUM 8.2 mg/dL (8.5-10.1)
[2024-06-01 08:20] LABS: ALBUMIN 1.9 g/dl (3.4-5.0); BLOOD UREA NITROGEN 42.2 mg/dL (7-18)
[2024-06-01 08:23] LABS: CREATININE 1.7 mg/dL (0.55-1.3)
[2024-06-01 08:24] LABS: BILIRUBIN,TOTAL 0.5 mg/dL (0.2-1); TOT PROT 6.6 g/dl (6.4-8.2)
[2024-06-01] MEDS: VITAMIN B COMP W-C 1 EA TABLET (NEPHRO-VITE) PO SCH (11:24)
[2024-06-01] MEDS ORDERED: GLUCAGON 1 MG KIT ONE (13:03)
[2024-06-01] MEDS ORDERED: FENTANYL CITRATE/PF 50 MCG/ML VIAL ONE ×2 (13:55→13:58)
[2024-06-01] MEDS: FENTANYL CITRATE/PF 50 MCG/ML VIAL IVPUSH ONE (13:56)
[2024-06-01] MEDS: GLUCAGON 1 MG KIT IVPUSH ONE (13:57)
[2024-06-02 07:31] LABS: HEMATOCRIT 26.3 % (35.4-49); HEMOGLOBIN 8.5 GM/dL (11.7-16.9); MCH 26.3 pg (25.7-33.7); MCHC 32.2 g/dl (32.0-35.9); MEAN CELL VOLUME 81.7 fl (80-96); MEAN PLT VOLUME 9.1 fl (7.5-11.1); PLATELET COUNT 340 10^3/uL (134-434); RBC 3.22 M/mm3 (4.00-5.60); RDW 15.9 % (11.9-15.9); WHITE BLOOD COUNT 7.5 K/mm3 (4.0-10.0)
[2024-06-02 07:32] LABS: POTASSIUM 3.4 mmol/L (3.5-5.1)
[2024-06-02 07:39] LABS: CALCIUM 8.5 mg/dL (8.5-10.1)
[2024-06-02 07:43] LABS: CREATININE 1.7 mg/dL (0.55-1.3)
[2024-06-02 07:44] LABS: BILIRUBIN,TOTAL 0.5 mg/dL (0.2-1); TOT PROT 6.8 g/dl (6.4-8.2)
[2024-06-02] MEDS: KCL 10 MEQ IVPB 10 MEQ/100 ML INFUS.BAG IVPB SCH (11:15)
[2024-06-03] MEDS: ACETAMINOPHEN 1000 MG/100 ML BAG IVPB ONE (02:50)
[2024-06-04] MEDS: DAPTOMYCIN 600 MG in SODIUM CHLORIDE 50 ML IVPB SCH (14:28)
[2024-06-05 08:17] LABS: POTASSIUM 3.4 mmol/L (3.5-5.1)
[2024-06-05 08:25] LABS: CALCIUM 8.2 mg/dL (8.5-10.1)
[2024-06-05 08:27] LABS: CREATININE 1.6 mg/dL (0.55-1.3)
[2024-06-05 08:29] LABS: BILIRUBIN,TOTAL 0.6 mg/dL (0.2-1)
[2024-06-05 08:33] LABS: TOT PROT 6.6 g/dl (6.4-8.2)
[2024-06-05 10:25] LABS: BASO % 1.2 % (0-2.0); EOS % 3.5 % (0-4.5); HEMOGLOBIN 7.8 GM/dL (11.7-16.9); MCH 26.4 pg (25.7-33.7); MCHC 32.4 g/dl (32.0-35.9); MEAN CELL VOLUME 81.3 fl (80-96); MEAN PLT VOLUME 9.1 fl (7.5-11.1); MONO % 11.2 % (3.8-10.2); NEUT % 73.1 % (42.8-82.8); PLATELET COUNT 297 10^3/uL (134-434); RBC 2.95 M/mm3 (4.00-5.60); RDW 16.1 % (11.9-15.9); WHITE BLOOD COUNT 7.2 K/mm3 (4.0-10.0)
[2024-06-05] MEDS: POTASSIUM CHLORIDE ORAL LIQUID 20 MEQ/15 ML PO ONE (15:59)
[2024-06-07 07:50] LABS: HEMATOCRIT 24.4 % (35.4-49); HEMOGLOBIN 7.6 GM/dL (11.7-16.9); MCH 26.4 pg (25.7-33.7); MCHC 31.2 g/dl (32.0-35.9); MEAN CELL VOLUME 84.6 fl (80-96); MEAN PLT VOLUME 9.3 fl (7.5-11.1); PLATELET COUNT 259 10^3/uL (134-434); RBC 2.89 M/mm3 (4.00-5.60); RDW 16.9 % (11.9-15.9); WHITE BLOOD COUNT 10.8 K/mm3 (4.0-10.0)
[2024-06-07 08:07] LABS: POTASSIUM 4.2 mmol/L (3.5-5.1)
[2024-06-07 08:12] LABS: CALCIUM 8.6 mg/dL (8.5-10.1)
[2024-06-07 08:13] LABS: ALBUMIN 2.1 g/dl (3.4-5.0); BLOOD UREA NITROGEN 34.4 mg/dL (7-18); MAGNESIUM 2.3 mg/dL (1.8-2.4)
[2024-06-07 08:15] LABS: CREATININE 1.8 mg/dL (0.55-1.3)
[2024-06-07 08:18] LABS: BILIRUBIN,TOTAL 0.4 mg/dL (0.2-1); TOT PROT 6.7 g/dl (6.4-8.2)
[2024-06-07 17:06] LABS: ARTERIAL BLD GAS O2 SATURATION 89.8 % (95-98); ARTERIAL BLOOD GAS BASE EXCESS -0.1 mmol/L (-2-2); ARTERIAL BLOOD GAS PO2 58.4 mmHg (80-100)
[2024-06-07 17:53] LABS: HEMATOCRIT 24.8 % (35.4-49); HEMOGLOBIN 7.5 GM/dL (11.7-16.9); MCH 25.5 pg (25.7-33.7); MCHC 30.1 g/dl (32.0-35.9); MEAN CELL VOLUME 84.6 fl (80-96); MEAN PLT VOLUME 9.4 fl (7.5-11.1); PLATELET COUNT 265 10^3/uL (134-434); RBC 2.93 M/mm3 (4.00-5.60); RDW 17.1 % (11.9-15.9)
[2024-06-07 18:41] LABS: CALCIUM 8.5 mg/dL (8.5-10.1)
[2024-06-07 18:42] LABS: ALBUMIN 2.1 g/dl (3.4-5.0); BLOOD UREA NITROGEN 34.1 mg/dL (7-18); MAGNESIUM 2.4 mg/dL (1.8-2.4)
[2024-06-07 18:45] LABS: CREATININE 1.7 mg/dL (0.55-1.3); PHOSPHOROUS 4.3 mg/dL (2.5-4.9)
[2024-06-07 18:47] LABS: BILIRUBIN,TOTAL 0.4 mg/dL (0.2-1)
[2024-06-07 18:57] LABS: ANISOCYTOSIS 2+; MACROCYTOSIS 0; OVALOCYTE 1+; TARGET CELLS 1+
[2024-06-08] MEDS ORDERED: DEXTROSE 50%-WATER 25 GM/50 ML DISP.SYRIN IVPUSH PRN (06:25)
[2024-06-08] MEDS: INSULIN ASPART SLIDING SCALE (NOVOLOG) 1 VIAL SQ SCH ×2 (07:13→11:45)
[2024-06-08 08:33] LABS: HEMATOCRIT 23.5 % (35.4-49); HEMOGLOBIN 7.2 GM/dL (11.7-16.9); MCH 25.8 pg (25.7-33.7); MCHC 30.8 g/dl (32.0-35.9); MEAN CELL VOLUME 83.7 fl (80-96); MEAN PLT VOLUME 8.9 fl (7.5-11.1); PLATELET COUNT 261 10^3/uL (134-434); RBC 2.81 M/mm3 (4.00-5.60); RDW 16.6 % (11.9-15.9); WHITE BLOOD COUNT 18.1 K/mm3 (4.0-10.0)
[2024-06-08] MEDS: AMINO ACIDS/PROTEIN HYDROLYS 30 ML LIQUID.PKT GT SCH (09:39)
[2024-06-08 09:49] LABS: CALCIUM 8.5 mg/dL (8.5-10.1)
[2024-06-08 09:50] LABS: BLOOD UREA NITROGEN 33.2 mg/dL (7-18); MAGNESIUM 2.3 mg/dL (1.8-2.4)
[2024-06-08 09:51] LABS: CREATININE 1.6 mg/dL (0.55-1.3)
[2024-06-08 09:53] LABS: BILIRUBIN,TOTAL 0.6 mg/dL (0.2-1); TOT PROT 6.9 g/dl (6.4-8.2)
[2024-06-08] MEDS ORDERED: COLLAGENASE CLOSTRIDIUM HIST. 30 GRAMS TUBE TP SCH (10:00)
[2024-06-08] MEDS ORDERED: QUEtiapine FUMARATE 25 MG TABLET GT SCH (10:00)
[2024-06-08] MEDS ORDERED: VITAMIN B COMP W-C 1 EA TABLET (NEPHRO-VITE) PO SCH (10:00)
[2024-06-08] MEDS ORDERED: FUROSEMIDE 40 MG/5 ML UNIT-DOSE CUP GT SCH ×2 (10:00)
[2024-06-08] MEDS ORDERED: LABETALOL HCL 100 MG TABLET (FP) GT SCH (10:00)
[2024-06-08] MEDS ORDERED: amLODIPine BESYLATE 2.5 MG TABLET (FP) GT SCH (10:00)
[2024-06-08] MEDS ORDERED: SERTRALINE HCL 25 MG TABLET (FP) NR SCH (10:00)
[2024-06-08] MEDS ORDERED: MUPIROCIN 2% TOPICAL OINTMENT FOR DECOLONIZATION NS SCH (10:00)
[2024-06-08] MEDS ORDERED: FINASTERIDE 5 MG TABLET (FP) GT SCH (10:00)
[2024-06-08] MEDS ORDERED: DOXAZOSIN MESYLATE 4 MG TABLET GT SCH (10:00)
[2024-06-08] MEDS ORDERED: levETIRAcetam 500 MG/5 ML INJECTION VIAL IVPB SCH (10:00)
[2024-06-08] MEDS: DOXAZOSIN MESYLATE 4 MG TABLET GT SCH (10:09)
[2024-06-08] MEDS: QUEtiapine FUMARATE 25 MG TABLET GT SCH (10:09)
[2024-06-08] MEDS: LABETALOL HCL 100 MG TABLET (FP) GT SCH (10:09)
[2024-06-08] MEDS: levETIRAcetam 500 MG/5 ML INJECTION VIAL IVPB SCH (10:09)
[2024-06-08] MEDS: SERTRALINE HCL 25 MG TABLET (FP) NR SCH (10:09)
[2024-06-08] MEDS: amLODIPine BESYLATE 2.5 MG TABLET (FP) GT SCH (10:09)
[2024-06-08] MEDS: MUPIROCIN 2% TOPICAL OINTMENT FOR DECOLONIZATION NS SCH (10:10)
[2024-06-08] MEDS: VITAMIN B COMP W-C 1 EA TABLET (NEPHRO-VITE) PO SCH (10:10)
[2024-06-08] MEDS: COLLAGENASE CLOSTRIDIUM HIST. 30 GRAMS TUBE TP SCH (10:10)
[2024-06-08] MEDS: FINASTERIDE 5 MG TABLET (FP) GT SCH (10:10)
[2024-06-08] MEDS: FUROSEMIDE 40 MG/5 ML UNIT-DOSE CUP GT SCH (10:21)
[2024-06-08] MEDS ORDERED: DAPTOMYCIN 600 MG in SODIUM CHLORIDE 50 ML IVPB SCH (14:00)
[2024-06-08] MEDS: DAPTOMYCIN 600 MG in SODIUM CHLORIDE 50 ML IVPB SCH (14:17)
[2024-06-08] MEDS: CHLORHEXIDINE GLUCONATE 4% CLEANSER FOR DECOLONIZATION TP SCH (21:32)
[2024-06-08] MEDS ORDERED: CHLORHEXIDINE GLUCONATE 4% CLEANSER FOR DECOLONIZATION TP SCH ×2 (22:00)
[2024-06-09 07:10] LABS: BASO % 0.7 % (0-2.0); EOS % 1.2 % (0-4.5); HEMATOCRIT 23.6 % (35.4-49); HEMOGLOBIN 7.3 GM/dL (11.7-16.9); LYMPH % 5.9 % (8-40); MCH 25.7 pg (25.7-33.7); MCHC 30.8 g/dl (32.0-35.9); MEAN CELL VOLUME 83.6 fl (80-96); MONO % 7.5 % (3.8-10.2); NEUT % 84.7 % (42.8-82.8); PLATELET COUNT 259 10^3/uL (134-434); RBC 2.83 M/mm3 (4.00-5.60); WHITE BLOOD COUNT 14.6 K/mm3 (4.0-10.0)
[2024-06-09 07:27] LABS: POTASSIUM 4.2 mmol/L (3.5-5.1)
[2024-06-09 07:29] LABS: BLOOD UREA NITROGEN 33.9 mg/dL (7-18); CALCIUM 8.3 mg/dL (8.5-10.1); MAGNESIUM 2.3 mg/dL (1.8-2.4)
[2024-06-09 07:31] LABS: ALBUMIN 2.1 g/dl (3.4-5.0)
[2024-06-09 07:32] LABS: CREATININE 1.8 mg/dL (0.55-1.3)
[2024-06-09 07:33] LABS: PHOSPHOROUS 4.3 mg/dL (2.5-4.9)
[2024-06-09 07:34] LABS: BILIRUBIN,TOTAL 0.4 mg/dL (0.2-1); TOT PROT 7.1 g/dl (6.4-8.2)
[2024-06-09] MEDS: AMINO ACIDS/PROTEIN HYDROLYS 30 ML LIQUID.PKT GT SCH (09:45)
[2024-06-10 17:01] LABS: BASO % 0.8 % (0-2.0); EOS % 2.7 % (0-4.5); HEMATOCRIT 23.8 % (35.4-49); HEMOGLOBIN 7.2 GM/dL (11.7-16.9); LYMPH % 14.2 % (8-40); MCH 25.8 pg (25.7-33.7); MCHC 30.3 g/dl (32.0-35.9); MEAN PLT VOLUME 9.1 fl (7.5-11.1); NEUT % 69.3 % (42.8-82.8); PLATELET COUNT 236 10^3/uL (134-434); RDW 16.7 % (11.9-15.9); WHITE BLOOD COUNT 13.4 K/mm3 (4.0-10.0)
[2024-06-10 17:06] LABS: INR 1.13 (0.83-1.09); PROTHROMBIN TIME (PATIENT) 12.7 SEC (9.7-13.0)
[2024-06-10 17:08] LABS: ACTIVATED PTT 33.1 SECONDS (25.2-36.5)
[2024-06-10 17:18] LABS: POTASSIUM 4.2 mmol/L (3.5-5.1)
[2024-06-10 17:20] LABS: CALCIUM 8.6 mg/dL (8.5-10.1)
[2024-06-10 17:21] LABS: ALBUMIN 2.2 g/dl (3.4-5.0)
[2024-06-10 17:24] LABS: CREATININE 1.9 mg/dL (0.55-1.3)
[2024-06-10 17:25] LABS: BILIRUBIN,TOTAL 0.4 mg/dL (0.2-1)
[2024-06-10] MEDS: FENTANYL NS IVPB 500 MCG/100 ML BAG IVPB SCH (20:36)
[2024-06-10] MEDS: MUPIROCIN 2% TOPICAL OINTMENT FOR DECOLONIZATION NS SCH (21:16)
[2024-06-10] MEDS: CHLORHEXIDINE GLUCONATE 4% CLEANSER FOR DECOLONIZATION TP SCH (21:16)
[2024-06-11] MEDS ORDERED: hydrALAZINE HCL 20 MG/ML VIAL ONE (00:01)
[2024-06-11] MEDS: INSULIN ASPART SLIDING SCALE (NOVOLOG) 1 VIAL SQ SCH (06:00)
[2024-06-11 07:08] LABS: POTASSIUM 3.9 mmol/L (3.5-5.1)
[2024-06-11 07:13] LABS: BLOOD UREA NITROGEN 37.2 mg/dL (7-18); CALCIUM 8.5 mg/dL (8.5-10.1)
[2024-06-11 07:16] LABS: CREATININE 1.7 mg/dL (0.55-1.3)
[2024-06-11 07:18] LABS: BILIRUBIN,TOTAL 0.4 mg/dL (0.2-1); TOT PROT 6.6 g/dl (6.4-8.2)
[2024-06-11 08:17] LABS: HEMATOCRIT 20.4 % (35.4-49); MCH 25.9 pg (25.7-33.7); MCHC 31.8 g/dl (32.0-35.9); MEAN CELL VOLUME 81.5 fl (80-96); MEAN PLT VOLUME 9.2 fl (7.5-11.1); PLATELET COUNT 198 10^3/uL (134-434); RBC 2.51 M/mm3 (4.00-5.60)
[2024-06-11 08:26] LABS: HEMOGLOBIN 6.5 GM/dL (11.7-16.9)
[2024-06-11] MEDS: levETIRAcetam 500 MG/5 ML INJECTION VIAL IVPB SCH (09:00)
[2024-06-11] MEDS: amLODIPine BESYLATE 2.5 MG TABLET (FP) GT SCH (09:00)
[2024-06-11] MEDS: QUEtiapine FUMARATE 25 MG TABLET GT SCH (09:00)
[2024-06-11] MEDS: VITAMIN B COMP W-C 1 EA TABLET (NEPHRO-VITE) PO SCH (09:00)
[2024-06-11] MEDS: AMINO ACIDS/PROTEIN HYDROLYS 30 ML LIQUID.PKT GT SCH (09:00)
[2024-06-11] MEDS: FUROSEMIDE 40 MG/5 ML UNIT-DOSE CUP GT SCH (09:01)
[2024-06-11] MEDS: SERTRALINE HCL 25 MG TABLET (FP) NR SCH (09:01)
[2024-06-11] MEDS: DOXAZOSIN MESYLATE 4 MG TABLET GT SCH (09:01)
[2024-06-11] MEDS: FINASTERIDE 5 MG TABLET (FP) GT SCH (09:01)
[2024-06-11] MEDS: LABETALOL HCL 100 MG TABLET (FP) GT SCH (09:01)
[2024-06-11] MEDS: COLLAGENASE CLOSTRIDIUM HIST. 30 GRAMS TUBE TP SCH (09:02)
[2024-06-11] MEDS ORDERED: ACETAMINOPHEN INJECTION 100 ML IVPB ONE (14:55)
[2024-06-11] MEDS: DAPTOMYCIN 600 MG in SODIUM CHLORIDE 50 ML IVPB SCH (14:55)
[2024-06-11] MEDS ORDERED: DEXTROSE 50%-WATER 25 GM/50 ML DISP.SYRIN IVPUSH PRN (23:17)
[2024-06-12] MEDS: FENTANYL NS IVPB 500 MCG/100 ML BAG IVPB SCH (07:16)
[2024-06-12 08:59] LABS: HEMOGLOBIN 7.1 GM/dL (11.7-16.9); MCH 26.8 pg (25.7-33.7); MCHC 32.3 g/dl (32.0-35.9); MEAN CELL VOLUME 82.9 fl (80-96); MEAN PLT VOLUME 9.1 fl (7.5-11.1); PLATELET COUNT 199 10^3/uL (134-434); RBC 2.65 M/mm3 (4.00-5.60); RDW 16.1 % (11.9-15.9); WHITE BLOOD COUNT 9.1 K/mm3 (4.0-10.0)
[2024-06-12 09:19] LABS: POTASSIUM 4.3 mmol/L (3.5-5.1)
[2024-06-12 09:23] LABS: CALCIUM 8.4 mg/dL (8.5-10.1)
[2024-06-12 09:24] LABS: BLOOD UREA NITROGEN 36.3 mg/dL (7-18); MAGNESIUM 2.3 mg/dL (1.8-2.4)
[2024-06-12 09:27] LABS: CREATININE 1.7 mg/dL (0.55-1.3); PHOSPHOROUS 4.1 mg/dL (2.5-4.9)
[2024-06-12] MEDS ORDERED: INSULIN ASPART SLIDING SCALE (NOVOLOG) 1 VIAL SQ ONE (18:23)
[2024-06-13 10:34] LABS: BASO % 0.7 % (0-2.0); EOS % 3.2 % (0-4.5); HEMATOCRIT 22.6 % (35.4-49); HEMOGLOBIN 7.4 GM/dL (11.7-16.9); LYMPH % 8.2 % (8-40); MCH 26.7 pg (25.7-33.7); MCHC 32.6 g/dl (32.0-35.9); MEAN PLT VOLUME 8.9 fl (7.5-11.1); NEUT % 74.9 % (42.8-82.8); PLATELET COUNT 170 10^3/uL (134-434); RBC 2.76 M/mm3 (4.00-5.60); RDW 16.7 % (11.9-15.9); WHITE BLOOD COUNT 9.8 K/mm3 (4.0-10.0)
[2024-06-13 11:03] LABS: CALCIUM 8.5 mg/dL (8.5-10.1)
[2024-06-13 11:04] LABS: BLOOD UREA NITROGEN 37.2 mg/dL (7-18); MAGNESIUM 2.3 mg/dL (1.8-2.4)
[2024-06-13 11:07] LABS: CREATININE 1.8 mg/dL (0.55-1.3)
[2024-06-13 11:08] LABS: TOT PROT 6.6 g/dl (6.4-8.2)
[2024-06-13 11:14] LABS: BILIRUBIN,TOTAL 0.5 mg/dL (0.2-1)
[2024-06-13] MEDS ORDERED: DEXTROSE 50%-WATER 25 GM/50 ML DISP.SYRIN IVPUSH PRN (20:16)
[2024-06-13] MEDS: LABETALOL HCL 100 MG TABLET (FP) GT SCH (21:09)
[2024-06-13] MEDS: CHLORHEXIDINE GLUCONATE 4% CLEANSER FOR DECOLONIZATION TP SCH (21:09)
[2024-06-13] MEDS: levETIRAcetam 500 MG/5 ML INJECTION VIAL IVPB SCH (21:09)
[2024-06-13] MEDS: MUPIROCIN 2% TOPICAL OINTMENT FOR DECOLONIZATION NS SCH (21:10)
[2024-06-13] MEDS: INSULIN ASPART SLIDING SCALE (NOVOLOG) 1 VIAL SQ SCH (21:10)
[2024-06-14 07:36] LABS: BASO % 0.5 % (0-2.0); EOS % 2.1 % (0-4.5); HEMATOCRIT 22.4 % (35.4-49); HEMOGLOBIN 7.2 GM/dL (11.7-16.9); LYMPH % 5.3 % (8-40); MCH 26.6 pg (25.7-33.7); MCHC 32.2 g/dl (32.0-35.9); MEAN CELL VOLUME 82.7 fl (80-96); MEAN PLT VOLUME 9.6 fl (7.5-11.1); MONO % 12.7 % (3.8-10.2); NEUT % 79.4 % (42.8-82.8); PLATELET COUNT 159 10^3/uL (134-434); RBC 2.71 M/mm3 (4.00-5.60); RDW 16.7 % (11.9-15.9); WHITE BLOOD COUNT 11.2 K/mm3 (4.0-10.0)
[2024-06-14 07:51] LABS: POTASSIUM 3.6 mmol/L (3.5-5.1)
[2024-06-14 07:55] LABS: CALCIUM 8.5 mg/dL (8.5-10.1)
[2024-06-14 07:56] LABS: ALBUMIN 2.1 g/dl (3.4-5.0); MAGNESIUM 2.2 mg/dL (1.8-2.4)
[2024-06-14 07:59] LABS: CREATININE 1.8 mg/dL (0.55-1.3); PHOSPHOROUS 4.4 mg/dL (2.5-4.9)
[2024-06-14 08:01] LABS: BILIRUBIN,TOTAL 0.5 mg/dL (0.2-1); TOT PROT 6.7 g/dl (6.4-8.2)
[2024-06-14] MEDS: QUEtiapine FUMARATE 25 MG TABLET GT SCH (09:48)
[2024-06-14] MEDS: SERTRALINE HCL 25 MG TABLET (FP) NR SCH (09:49)
[2024-06-14] MEDS: amLODIPine BESYLATE 2.5 MG TABLET (FP) GT SCH (09:50)
[2024-06-14] MEDS: VITAMIN B COMP W-C 1 EA TABLET (NEPHRO-VITE) PO SCH (09:50)
[2024-06-14] MEDS: FINASTERIDE 5 MG TABLET (FP) GT SCH (09:50)
[2024-06-14] MEDS: AMINO ACIDS/PROTEIN HYDROLYS 30 ML LIQUID.PKT GT SCH (09:54)
[2024-06-14] MEDS: FUROSEMIDE 40 MG/5 ML UNIT-DOSE CUP GT SCH (09:54)
[2024-06-14] MEDS: DOXAZOSIN MESYLATE 4 MG TABLET GT SCH (09:54)
[2024-06-14] MEDS ORDERED: RAPID SEQUENCE INTUBATION KIT NR ONE (13:59)
[2024-06-14] MEDS: DAPTOMYCIN 600 MG in SODIUM CHLORIDE 50 ML IVPB SCH (14:18)
[2024-06-14] MEDS: COLLAGENASE CLOSTRIDIUM HIST. 30 GRAMS TUBE TP SCH (14:18)
[2024-06-16 06:46] LABS: BLOOD UREA NITROGEN 28.7 mg/dL (7-18); CALCIUM 8.4 mg/dL (8.5-10.1)
[2024-06-16 06:50] LABS: CREATININE 1.8 mg/dL (0.55-1.3)
[2024-06-16] MEDS: HALOPERIDOL LACTATE 5 MG/ML IM PRN (09:27)
[2024-06-16] MEDS: QUEtiapine FUMARATE 25 MG TABLET GT SCH (09:28)
[2024-06-16] MEDS: KCL 10 MEQ IVPB 10 MEQ/100 ML INFUS.BAG IVPB SCH (17:14)
[2024-06-16] MEDS: POTASSIUM CHLORIDE ORAL LIQUID 20 MEQ/15 ML GT ONE (17:15)
[2024-06-17 08:20] LABS: BASO % 0.4 % (0-2.0); EOS % 4.4 % (0-4.5); HEMATOCRIT 21.9 % (35.4-49); LYMPH % 5.7 % (8-40); MCH 26.5 pg (25.7-33.7); MEAN CELL VOLUME 82.7 fl (80-96); MEAN PLT VOLUME 9.9 fl (7.5-11.1); MONO % 8.9 % (3.8-10.2); NEUT % 80.6 % (42.8-82.8); PLATELET COUNT 159 10^3/uL (134-434); RBC 2.65 M/mm3 (4.00-5.60); RDW 16.7 % (11.9-15.9); WHITE BLOOD COUNT 12.4 K/mm3 (4.0-10.0)
[2024-06-17 08:31] LABS: POTASSIUM 3.9 mmol/L (3.5-5.1)
[2024-06-17 08:43] LABS: CREATININE 1.7 mg/dL (0.55-1.3)
[2024-06-17 08:44] LABS: BILIRUBIN,TOTAL 0.7 mg/dL (0.2-1)
[2024-06-17 08:45] LABS: TOT PROT 6.9 g/dl (6.4-8.2)
[2024-06-17] MEDS: ZINC SULFATE 220 MG CAPSULE (FP) GT SCH (09:01)
[2024-06-17] MEDS ORDERED: DEXTROSE 50%-WATER 25 GM/50 ML DISP.SYRIN IVPUSH PRN (19:30)
[2024-06-17 19:43] LABS: MAGNESIUM 2.4 mg/dL (1.8-2.4)
[2024-06-17] MEDS: CHLORHEXIDINE GLUCONATE 4% CLEANSER FOR DECOLONIZATION TP SCH (21:15)
[2024-06-17] MEDS: levETIRAcetam 500 MG/5 ML INJECTION VIAL IVPB SCH (21:15)
[2024-06-17] MEDS: INSULIN ASPART SLIDING SCALE (NOVOLOG) 1 VIAL SQ SCH (21:16)
[2024-06-17] MEDS: QUEtiapine FUMARATE 25 MG TABLET GT SCH (21:16)
[2024-06-17] MEDS: LABETALOL HCL 100 MG TABLET (FP) GT SCH (21:17)
[2024-06-18 07:47] LABS: POTASSIUM 3.6 mmol/L (3.5-5.1)
[2024-06-18 07:52] LABS: BASO % 0.3 % (0-2.0); CALCIUM 8.3 mg/dL (8.5-10.1); EOS % 4.1 % (0-4.5); HEMATOCRIT 21.7 % (35.4-49); LYMPH % 7.5 % (8-40); MCH 26.5 pg (25.7-33.7); MCHC 32.1 g/dl (32.0-35.9); MEAN CELL VOLUME 82.5 fl (80-96); MEAN PLT VOLUME 9.2 fl (7.5-11.1); MONO % 6.7 % (3.8-10.2); NEUT % 81.4 % (42.8-82.8); PLATELET COUNT 162 10^3/uL (134-434); RBC 2.63 M/mm3 (4.00-5.60); RDW 16.8 % (11.9-15.9)
[2024-06-18 07:53] LABS: BLOOD UREA NITROGEN 34.7 mg/dL (7-18); MAGNESIUM 2.3 mg/dL (1.8-2.4)
[2024-06-18 07:56] LABS: BILIRUBIN,TOTAL 0.4 mg/dL (0.2-1); CREATININE 1.7 mg/dL (0.55-1.3); TOT PROT 6.8 g/dl (6.4-8.2)
[2024-06-18] MEDS: AMINO ACIDS/PROTEIN HYDROLYS 30 ML LIQUID.PKT GT SCH (09:06)
[2024-06-18] MEDS: DOXAZOSIN MESYLATE 4 MG TABLET GT SCH (09:06)
[2024-06-18] MEDS: FINASTERIDE 5 MG TABLET (FP) GT SCH (09:07)
[2024-06-18] MEDS: SERTRALINE HCL 25 MG TABLET (FP) NR SCH (09:07)
[2024-06-18] MEDS: VITAMIN B COMP W-C 1 EA TABLET (NEPHRO-VITE) PO SCH (09:07)
[2024-06-18] MEDS: amLODIPine BESYLATE 2.5 MG TABLET (FP) GT SCH (09:09)
[2024-06-18] MEDS: FUROSEMIDE 40 MG/5 ML UNIT-DOSE CUP GT SCH (09:09)
[2024-06-18] MEDS: COLLAGENASE CLOSTRIDIUM HIST. 30 GRAMS TUBE TP SCH (09:10)
[2024-06-18] MEDS: ZINC SULFATE 220 MG CAPSULE (FP) GT SCH (09:10)
[2024-06-18] MEDS: POTASSIUM CHLORIDE ORAL LIQUID 20 MEQ/15 ML GT ONE (10:47)
[2024-06-18] MEDS: DAPTOMYCIN 600 MG in SODIUM CHLORIDE 50 ML IVPB SCH (13:02)
[2024-06-19 07:25] LABS: BASO % 0.3 % (0-2.0); EOS % 4.2 % (0-4.5); HEMATOCRIT 20.8 % (35.4-49); LYMPH % 9.6 % (8-40); MCHC 32.7 g/dl (32.0-35.9); MEAN CELL VOLUME 82.5 fl (80-96); MEAN PLT VOLUME 8.5 fl (7.5-11.1); MONO % 7.5 % (3.8-10.2); NEUT % 78.4 % (42.8-82.8); PLATELET COUNT 148 10^3/uL (134-434); RBC 2.53 M/mm3 (4.00-5.60); RDW 16.7 % (11.9-15.9); WHITE BLOOD COUNT 9.6 K/mm3 (4.0-10.0)
[2024-06-19 07:38] LABS: HEMOGLOBIN 6.8 GM/dL (11.7-16.9)
[2024-06-19 07:43] LABS: POTASSIUM 3.7 mmol/L (3.5-5.1)
[2024-06-19 07:53] LABS: ALBUMIN 2.1 g/dl (3.4-5.0); CALCIUM 8.1 mg/dL (8.5-10.1)
[2024-06-19 07:54] LABS: BLOOD UREA NITROGEN 35.1 mg/dL (7-18); MAGNESIUM 2.3 mg/dL (1.8-2.4)
[2024-06-19 07:56] LABS: CREATININE 1.6 mg/dL (0.55-1.3)
[2024-06-19 07:58] LABS: BILIRUBIN,TOTAL 0.5 mg/dL (0.2-1); TOT PROT 6.8 g/dl (6.4-8.2)
[2024-06-19] MEDS: VANCOMYCIN ORAL SOLUTION 125 MG/2.5 ML GT SCH (18:06)
[2024-06-20 07:27] LABS: BASO % 0.4 % (0-2.0); EOS % 3.7 % (0-4.5); HEMATOCRIT 22.4 % (35.4-49); HEMOGLOBIN 7.4 GM/dL (11.7-16.9); LYMPH % 7.9 % (8-40); MCH 27.6 pg (25.7-33.7); MCHC 33.1 g/dl (32.0-35.9); MEAN CELL VOLUME 83.3 fl (80-96); MEAN PLT VOLUME 8.6 fl (7.5-11.1); MONO % 7.4 % (3.8-10.2); NEUT % 80.6 % (42.8-82.8); PLATELET COUNT 155 10^3/uL (134-434); RBC 2.68 M/mm3 (4.00-5.60); RDW 16.8 % (11.9-15.9); WHITE BLOOD COUNT 10.3 K/mm3 (4.0-10.0)
[2024-06-20 07:47] LABS: POTASSIUM 4.1 mmol/L (3.5-5.1)
[2024-06-20 07:50] LABS: ALBUMIN 2.1 g/dl (3.4-5.0)
[2024-06-20 07:51] LABS: MAGNESIUM 2.4 mg/dL (1.8-2.4)
[2024-06-20 07:53] LABS: CREATININE 1.6 mg/dL (0.55-1.3)
[2024-06-20 07:55] LABS: BILIRUBIN,TOTAL 0.4 mg/dL (0.2-1)
[2024-06-21 06:44] LABS: BASO % 0.4 % (0-2.0); EOS % 3.2 % (0-4.5); HEMATOCRIT 20.5 % (35.4-49); LYMPH % 5.6 % (8-40); MCH 27.5 pg (25.7-33.7); MEAN CELL VOLUME 83.5 fl (80-96); MEAN PLT VOLUME 9.2 fl (7.5-11.1); NEUT % 83.8 % (42.8-82.8); PLATELET COUNT 165 10^3/uL (134-434); RBC 2.46 M/mm3 (4.00-5.60); RDW 16.9 % (11.9-15.9); WHITE BLOOD COUNT 11.1 K/mm3 (4.0-10.0)
[2024-06-21 06:49] LABS: POTASSIUM 3.9 mmol/L (3.5-5.1)
[2024-06-21 07:02] LABS: CALCIUM 8.2 mg/dL (8.5-10.1)
[2024-06-21 07:03] LABS: ALBUMIN 2.2 g/dl (3.4-5.0); BLOOD UREA NITROGEN 39.6 mg/dL (7-18); MAGNESIUM 2.4 mg/dL (1.8-2.4)
[2024-06-21 07:06] LABS: CREATININE 1.6 mg/dL (0.55-1.3)
[2024-06-21 07:07] LABS: BILIRUBIN,TOTAL 0.4 mg/dL (0.2-1)
[2024-06-21 07:08] LABS: TOT PROT 7.2 g/dl (6.4-8.2)
[2024-06-21 07:23] LABS: HEMOGLOBIN 6.8 GM/dL (11.7-16.9)
[2024-06-21] MEDS: levETIRAcetam 500 MG/5 ML ORAL SOLUTION (UNIT-DOSE CUPS) PO SCH (14:36)
[2024-06-22] MEDS: HALOPERIDOL LACTATE 5 MG/ML IM PRN (02:43)
[2024-06-22 06:31] LABS: HEMATOCRIT 28.4 % (35.4-49); HEMOGLOBIN 9.2 GM/dL (11.7-16.9); MCH 27.3 pg (25.7-33.7); MCHC 32.4 g/dl (32.0-35.9); MEAN CELL VOLUME 84.2 fl (80-96); MEAN PLT VOLUME 8.7 fl (7.5-11.1); PLATELET COUNT 191 10^3/uL (134-434); RBC 3.37 M/mm3 (4.00-5.60); RDW 16.8 % (11.9-15.9); WHITE BLOOD COUNT 15.3 K/mm3 (4.0-10.0)
[2024-06-22 06:53] LABS: POTASSIUM 4.1 mmol/L (3.5-5.1)
[2024-06-22 06:57] LABS: CALCIUM 8.3 mg/dL (8.5-10.1)
[2024-06-22 06:58] LABS: ALBUMIN 2.3 g/dl (3.4-5.0)
[2024-06-22 07:01] LABS: CREATININE 1.5 mg/dL (0.55-1.3)
[2024-06-22 07:02] LABS: BILIRUBIN,TOTAL 0.7 mg/dL (0.2-1); TOT PROT 7.8 g/dl (6.4-8.2)
[2024-06-22] MEDS ORDERED: PROPOFOL 20 ML ONE (09:34)
[2024-06-22] MEDS ORDERED: PROPOFOL 1,000,000 MCG/100 ML VIAL ONE (09:46)
[2024-06-22] MEDS ORDERED: RAPID SEQUENCE INTUBATION KIT NR ONE (09:47)
[2024-06-22] MEDS: ACETYLCYSTEINE 20% 200MG/ML 30 ML VIAL *FOR ORAL / INH USE ONLY NEB ONE (10:00)
[2024-06-22] MEDS: ALBUTEROL SO4 0.083% IH SOL 2.5 MG/3 ML VIAL.NEB. NEB ONE (10:00)
[2024-06-22] MEDS: PROPOFOL 1,000,000 MCG/100 ML VIAL IVPB SCH (10:30)
[2024-06-22] MEDS: MUPIROCIN 2% TOPICAL OINTMENT FOR DECOLONIZATION NS SCH (13:30)
[2024-06-22] MEDS ORDERED: ROCURONIUM BROMIDE 50 MG/5 ML VIAL ONE (13:52)
[2024-06-22] MEDS: ROCURONIUM BROMIDE 50 MG/5 ML VIAL IV ONE (14:30)
[2024-06-22] MEDS: CHLORHEXIDINE GLUCONATE 4% CLEANSER FOR DECOLONIZATION TP SCH (21:14)
[2024-06-22] MEDS: ACETYLCYSTEINE 20% 200MG/ML 4 ML VIAL *FOR ORAL / INH USE ONLY NEB ONE (21:15)
[2024-06-23] MEDS ORDERED: QUEtiapine FUMARATE 25 MG TABLET GT SCH (17:58)
[2024-06-23] MEDS: QUEtiapine FUMARATE 50 MG TABLET GT SCH (21:31)
[2024-06-24 06:46] LABS: HEMATOCRIT 25.3 % (35.4-49); HEMOGLOBIN 8.3 GM/dL (11.7-16.9); MCH 27.7 pg (25.7-33.7); MCHC 32.9 g/dl (32.0-35.9); MEAN CELL VOLUME 84.2 fl (80-96); MEAN PLT VOLUME 8.3 fl (7.5-11.1); PLATELET COUNT 186 10^3/uL (134-434); RDW 17.6 % (11.9-15.9); WHITE BLOOD COUNT 9.8 K/mm3 (4.0-10.0)
[2024-06-24 07:03] LABS: POTASSIUM 4.1 mmol/L (3.5-5.1)
[2024-06-24 07:05] LABS: CALCIUM 8.6 mg/dL (8.5-10.1)
[2024-06-24 07:06] LABS: ALBUMIN 2.1 g/dl (3.4-5.0); BLOOD UREA NITROGEN 47.9 mg/dL (7-18); MAGNESIUM 2.3 mg/dL (1.8-2.4)
[2024-06-24 07:09] LABS: CREATININE 1.8 mg/dL (0.55-1.3)
[2024-06-24 07:11] LABS: BILIRUBIN,TOTAL 0.5 mg/dL (0.2-1); TOT PROT 7.2 g/dl (6.4-8.2)
[2024-06-24] MEDS: SERTRALINE HCL 50 MG TABLET (FP) NR SCH (09:23)
[2024-06-25] MEDS: DAPTOMYCIN 600 MG in SODIUM CHLORIDE 50 ML IVPB ONE (14:43)
[2024-06-26 06:20] LABS: BASO % 0.8 % (0-2.0); HEMOGLOBIN 8.4 GM/dL (11.7-16.9); LYMPH % 4.5 % (8-40); MCH 27.5 pg (25.7-33.7); MCHC 32.4 g/dl (32.0-35.9); MEAN CELL VOLUME 84.9 fl (80-96); MEAN PLT VOLUME 8.3 fl (7.5-11.1); NEUT % 83.7 % (42.8-82.8); PLATELET COUNT 204 10^3/uL (134-434); RBC 3.06 M/mm3 (4.00-5.60); RDW 17.6 % (11.9-15.9); WHITE BLOOD COUNT 9.4 K/mm3 (4.0-10.0)
[2024-06-26 06:33] LABS: ALBUMIN 2.2 g/dl (3.4-5.0); BLOOD UREA NITROGEN 50.6 mg/dL (7-18); MAGNESIUM 2.4 mg/dL (1.8-2.4)
[2024-06-26 06:36] LABS: CREATININE 1.6 mg/dL (0.55-1.3)
[2024-06-26 06:37] LABS: BILIRUBIN,TOTAL 0.4 mg/dL (0.2-1); TOT PROT 7.4 g/dl (6.4-8.2)
[2024-06-26] MEDS: DAPTOMYCIN 600 MG in SODIUM CHLORIDE 50 ML IVPB SCH (13:04)
[2024-06-27 07:52] LABS: BASO % 0.6 % (0-2.0); EOS % 3.9 % (0-4.5); HEMATOCRIT 26.3 % (35.4-49); HEMOGLOBIN 8.5 GM/dL (11.7-16.9); LYMPH % 7.4 % (8-40); MCH 27.5 pg (25.7-33.7); MCHC 32.3 g/dl (32.0-35.9); MEAN CELL VOLUME 84.9 fl (80-96); MEAN PLT VOLUME 8.4 fl (7.5-11.1); MONO % 6.5 % (3.8-10.2); NEUT % 81.6 % (42.8-82.8); PLATELET COUNT 207 10^3/uL (134-434); RDW 17.9 % (11.9-15.9)
[2024-06-27 08:06] LABS: POTASSIUM 3.8 mmol/L (3.5-5.1)
[2024-06-27 08:10] LABS: CALCIUM 8.9 mg/dL (8.5-10.1)
[2024-06-27 08:11] LABS: ALBUMIN 2.3 g/dl (3.4-5.0); MAGNESIUM 2.5 mg/dL (1.8-2.4)
[2024-06-27 08:14] LABS: CREATININE 1.7 mg/dL (0.55-1.3)
[2024-06-27 08:15] LABS: BILIRUBIN,TOTAL 0.6 mg/dL (0.2-1); TOT PROT 7.6 g/dl (6.4-8.2)
[2024-06-28 07:50] LABS: BASO % 0.8 % (0-2.0); EOS % 3.2 % (0-4.5); HEMATOCRIT 23.8 % (35.4-49); HEMOGLOBIN 7.8 GM/dL (11.7-16.9); LYMPH % 5.4 % (8-40); MCH 27.9 pg (25.7-33.7); MCHC 32.8 g/dl (32.0-35.9); MEAN CELL VOLUME 84.8 fl (80-96); MEAN PLT VOLUME 8.9 fl (7.5-11.1); MONO % 8.8 % (3.8-10.2); NEUT % 81.8 % (42.8-82.8); PLATELET COUNT 202 10^3/uL (134-434); RDW 17.7 % (11.9-15.9); WHITE BLOOD COUNT 8.8 K/mm3 (4.0-10.0)
[2024-06-28 08:29] LABS: CALCIUM 8.7 mg/dL (8.5-10.1)
[2024-06-28 08:30] LABS: ALBUMIN 2.1 g/dl (3.4-5.0); BLOOD UREA NITROGEN 52.8 mg/dL (7-18); MAGNESIUM 2.4 mg/dL (1.8-2.4)
[2024-06-28 08:32] LABS: BILIRUBIN,TOTAL 0.4 mg/dL (0.2-1)
[2024-06-28 08:33] LABS: CREATININE 1.7 mg/dL (0.55-1.3)
[2024-06-28] MEDS ORDERED: QUEtiapine FUMARATE 25 MG TABLET ONE (20:57)
[2024-06-29] MEDS ORDERED: QUEtiapine FUMARATE 25 MG TABLET ONE ×2 (09:59→19:34)
[2024-06-29] MEDS: ACETAMINOPHEN 1000 MG/100 ML BAG IVPB PRN (21:00)
[2024-06-30] MEDS ORDERED: QUEtiapine FUMARATE 25 MG TABLET ONE ×2 (10:34→21:07)
[2024-06-30 12:23] LABS: BASO % 0.4 % (0-2.0); EOS % 2.9 % (0-4.5); HEMATOCRIT 24.1 % (35.4-49); HEMOGLOBIN 7.9 GM/dL (11.7-16.9); LYMPH % 4.4 % (8-40); MCH 27.7 pg (25.7-33.7); MCHC 32.9 g/dl (32.0-35.9); MEAN CELL VOLUME 84.3 fl (80-96); MEAN PLT VOLUME 8.4 fl (7.5-11.1); MONO % 8.3 % (3.8-10.2); PLATELET COUNT 198 10^3/uL (134-434); RBC 2.87 M/mm3 (4.00-5.60); RDW 17.8 % (11.9-15.9); WHITE BLOOD COUNT 10.4 K/mm3 (4.0-10.0)
[2024-06-30 12:42] LABS: INR 1.18 (0.83-1.09); PROTHROMBIN TIME (PATIENT) 13.3 SEC (9.7-13.0)
[2024-06-30 12:43] LABS: CALCIUM 8.9 mg/dL (8.5-10.1)
[2024-06-30 12:44] LABS: ALBUMIN 2.3 g/dl (3.4-5.0); BLOOD UREA NITROGEN 54.8 mg/dL (7-18)
[2024-06-30 12:47] LABS: CREATININE 1.6 mg/dL (0.55-1.3)
[2024-06-30 12:48] LABS: BILIRUBIN,TOTAL 0.4 mg/dL (0.2-1)
[2024-06-30 12:49] LABS: TOT PROT 7.4 g/dl (6.4-8.2)
[2024-07-01] MEDS ORDERED: QUEtiapine FUMARATE 25 MG TABLET ONE ×2 (10:12→20:46)
[2024-07-02] MEDS ORDERED: SODIUM CHLORIDE NASAL SPRAY 44 ML BOTTLE NS PRN (06:30)
[2024-07-02] MEDS ORDERED: QUEtiapine FUMARATE 25 MG TABLET ONE ×2 (09:09→21:23)
[2024-07-02] MEDS: FLUTICASONE PROP 0.05% 16 GM NASAL SPRAY NS SCH (10:13)
[2024-07-03] MEDS ORDERED: QUEtiapine FUMARATE 25 MG TABLET ONE ×2 (08:40→21:12)
[2024-07-03] MEDS ORDERED: DEXTROSE 50%-WATER 25 GM/50 ML DISP.SYRIN IVPUSH PRN (10:02)
[2024-07-03] MEDS: INSULIN ASPART SLIDING SCALE (NOVOLOG) 1 VIAL SQ SCH (11:59)
[2024-07-03] MEDS: COLLAGENASE CLOSTRIDIUM HIST. 30 GRAMS TUBE TP SCH (13:15)
[2024-07-03] MEDS: DAPTOMYCIN 600 MG in SODIUM CHLORIDE 50 ML IVPB SCH (17:27)
[2024-07-03] MEDS: LABETALOL HCL 100 MG TABLET (FP) GT SCH (22:11)
[2024-07-03] MEDS: levETIRAcetam 500 MG/5 ML ORAL SOLUTION (UNIT-DOSE CUPS) PO SCH (22:15)
[2024-07-04] MEDS ORDERED: QUEtiapine FUMARATE 25 MG TABLET ONE ×2 (10:31→21:11)
[2024-07-04] MEDS: FUROSEMIDE 40 MG/5 ML UNIT-DOSE CUP GT SCH (10:47)
[2024-07-04] MEDS: AMINO ACIDS/PROTEIN HYDROLYS 30 ML LIQUID.PKT GT SCH (10:47)
[2024-07-04] MEDS: amLODIPine BESYLATE 2.5 MG TABLET (FP) GT SCH (10:48)
[2024-07-04] MEDS: FINASTERIDE 5 MG TABLET (FP) GT SCH (10:49)
[2024-07-04] MEDS: DOXAZOSIN MESYLATE 4 MG TABLET GT SCH (10:49)
[2024-07-04] MEDS: VITAMIN B COMP W-C 1 EA TABLET (NEPHRO-VITE) PO SCH (10:50)
[2024-07-05] MEDS ORDERED: QUEtiapine FUMARATE 25 MG TABLET ONE (09:21)
[2024-07-05 09:44] LABS: POTASSIUM 4.2 mmol/L (3.5-5.1)
[2024-07-05 09:55] LABS: CALCIUM 8.6 mg/dL (8.5-10.1)
[2024-07-05 09:56] LABS: ALBUMIN 2.3 g/dl (3.4-5.0); BLOOD UREA NITROGEN 63.1 mg/dL (7-18)
[2024-07-05 09:59] LABS: CREATININE 1.7 mg/dL (0.55-1.3)
[2024-07-05 10:00] LABS: BILIRUBIN,TOTAL 0.5 mg/dL (0.2-1)
[2024-07-05 10:01] LABS: TOT PROT 7.6 g/dl (6.4-8.2)
[2024-07-06] MEDS ORDERED: QUEtiapine FUMARATE 25 MG TABLET ONE ×2 (10:50→21:06)
[2024-07-07 13:26] LABS: BASO % 0.3 % (0-2.0); EOS % 0.7 % (0-4.5); HEMATOCRIT 20.5 % (35.4-49); LYMPH % 6.3 % (8-40); MCH 27.4 pg (25.7-33.7); MCHC 32.9 g/dl (32.0-35.9); MEAN CELL VOLUME 83.3 fl (80-96); MEAN PLT VOLUME 9.4 fl (7.5-11.1); MONO % 10.1 % (3.8-10.2); NEUT % 82.6 % (42.8-82.8); PLATELET COUNT 225 10^3/uL (134-434); RBC 2.46 M/mm3 (4.00-5.60); RDW 16.9 % (11.9-15.9); WHITE BLOOD COUNT 9.1 K/mm3 (4.0-10.0)
[2024-07-07 13:32] LABS: HEMOGLOBIN 6.8 GM/dL (11.7-16.9)
[2024-07-07 13:45] LABS: POTASSIUM 3.7 mmol/L (3.5-5.1)
[2024-07-07 13:47] LABS: ALBUMIN 2.2 g/dl (3.4-5.0); BLOOD UREA NITROGEN 60.6 mg/dL (7-18); CALCIUM 8.9 mg/dL (8.5-10.1)
[2024-07-07 13:51] LABS: CREATININE 1.6 mg/dL (0.55-1.3)
[2024-07-07 13:52] LABS: BILIRUBIN,TOTAL 0.6 mg/dL (0.2-1); TOT PROT 7.3 g/dl (6.4-8.2)
[2024-07-07] MEDS: IOHEXOL (OMNIPAQUE IV) 350 MG/ML - 100 ML BOTTLE PEG ONE (14:41)
[2024-07-07] MEDS ORDERED: QUEtiapine FUMARATE 25 MG TABLET ONE (21:45)
[2024-07-08] MEDS ORDERED: QUEtiapine FUMARATE 25 MG TABLET ONE ×2 (09:23→20:38)
[2024-07-08 10:31] LABS: BASO % 0.3 % (0-2.0); EOS % 0.6 % (0-4.5); HEMATOCRIT 28.2 % (35.4-49); HEMOGLOBIN 9.2 GM/dL (11.7-16.9); LYMPH % 3.1 % (8-40); MCH 27.5 pg (25.7-33.7); MCHC 32.6 g/dl (32.0-35.9); MEAN CELL VOLUME 84.3 fl (80-96); MEAN PLT VOLUME 9.5 fl (7.5-11.1); MONO % 10.8 % (3.8-10.2); NEUT % 85.2 % (42.8-82.8); PLATELET COUNT 242 10^3/uL (134-434); RBC 3.35 M/mm3 (4.00-5.60); RDW 15.9 % (11.9-15.9); WHITE BLOOD COUNT 11.8 K/mm3 (4.0-10.0)
[2024-07-08 10:54] LABS: POTASSIUM 3.5 mmol/L (3.5-5.1)
[2024-07-08 10:56] LABS: ALBUMIN 2.4 g/dl (3.4-5.0); BLOOD UREA NITROGEN 56.4 mg/dL (7-18)
[2024-07-08 11:00] LABS: CREATININE 1.7 mg/dL (0.55-1.3)
[2024-07-08 11:02] LABS: BILIRUBIN,TOTAL 0.9 mg/dL (0.2-1); TOT PROT 7.7 g/dl (6.4-8.2)
[2024-07-09] MEDS ORDERED: QUEtiapine FUMARATE 25 MG TABLET ONE ×2 (08:55→20:51)
[2024-07-09 09:09] LABS: BASO % 0.6 % (0-2.0); HEMOGLOBIN 9.5 GM/dL (11.7-16.9); LYMPH % 4.8 % (8-40); MCH 28.4 pg (25.7-33.7); MCHC 33.9 g/dl (32.0-35.9); MEAN CELL VOLUME 83.6 fl (80-96); MEAN PLT VOLUME 9.4 fl (7.5-11.1); MONO % 9.4 % (3.8-10.2); NEUT % 83.2 % (42.8-82.8); PLATELET COUNT 240 10^3/uL (134-434); RBC 3.34 M/mm3 (4.00-5.60); RDW 16.1 % (11.9-15.9); WHITE BLOOD COUNT 10.3 K/mm3 (4.0-10.0)
[2024-07-09 09:25] LABS: POTASSIUM 3.6 mmol/L (3.5-5.1)
[2024-07-09 09:31] LABS: CALCIUM 8.9 mg/dL (8.5-10.1)
[2024-07-09 09:33] LABS: CREATININE 1.8 mg/dL (0.55-1.3)
[2024-07-09 09:34] LABS: ALBUMIN 2.2 g/dl (3.4-5.0); BLOOD UREA NITROGEN 58.5 mg/dL (7-18)
[2024-07-09 09:35] LABS: BILIRUBIN,TOTAL 0.6 mg/dL (0.2-1); TOT PROT 7.5 g/dl (6.4-8.2)
[2024-07-10] MEDS ORDERED: QUEtiapine FUMARATE 25 MG TABLET ONE ×3 (10:13→21:20)
[2024-07-11] MEDS ORDERED: QUEtiapine FUMARATE 25 MG TABLET ONE ×2 (08:49→21:30)
[2024-07-11] MEDS: ALBUTEROL SO4 2.5/IPRATROPIUM 0.5 INH SOL 3 ML VIAL.NEB. NEB SCH (11:32)
[2024-07-12] MEDS ORDERED: QUEtiapine FUMARATE 25 MG TABLET ONE ×2 (09:56→21:42)
[2024-07-12 10:11] LABS: POTASSIUM 3.8 mmol/L (3.5-5.1)
[2024-07-12 10:15] LABS: ALBUMIN 2.1 g/dl (3.4-5.0); BLOOD UREA NITROGEN 67.5 mg/dL (7-18); CALCIUM 8.6 mg/dL (8.5-10.1)
[2024-07-12 10:20] LABS: BILIRUBIN,TOTAL 0.6 mg/dL (0.2-1); CREATININE 1.7 mg/dL (0.55-1.3); TOT PROT 7.2 g/dl (6.4-8.2)
[2024-07-12] MEDS: HALOPERIDOL LACTATE 5 MG/ML IM PRN (23:08)
[2024-07-13 07:11] VITALS: RESP 18
[2024-07-13] MEDS ORDERED: QUEtiapine FUMARATE 25 MG TABLET ONE (10:55)
[2024-07-13 15:05] VITALS: PULSE 68
[2024-07-13 15:48] VITALS: BP 141/66; TEMP 97.3
== END 2024-07-13 16:22 | DRG 5 ==
LOC: JER 15:44 → JERBED 20:14 → J5S 04-14 00:34 → JICU 04-14 09:24 → J4W 04-25 16:52 → JICU 05-05 03:28 → J2W 05-27 20:16 → JICU 06-10 18:04 → J2W 06-13 17:25 → J5S 06-28 16:25
PROVIDERS: ADMIT Family Medicine; ATTEND Family Medicine
PROC: 30233R1 Transfusion of Nonautologous Platelets into Peripheral Vein, Percutaneous Approach (ICD-10-PCS; 2024-04-14)
PROC: 0W9930Z Drainage of Right Pleural Cavity with Drainage Device, Percutaneous Approach (ICD-10-PCS; 2024-04-14)
PROC: 4A133B1 Monitoring of Arterial Pressure, Peripheral, Percutaneous Approach (ICD-10-PCS; 2024-04-14)
PROC: 4A133J1 Monitoring of Arterial Pulse, Peripheral, Percutaneous Approach (ICD-10-PCS; 2024-04-14)
PROC: 05HM33Z Insertion of Infusion Device into Right Internal Jugular Vein, Percutaneous Approach (ICD-10-PCS; 2024-04-15)
PROC: B543ZZA Ultrasonography of Right Jugular Veins, Guidance (ICD-10-PCS; 2024-04-15)
PROC: 30233N1 Transfusion of Nonautologous Red Blood Cells into Peripheral Vein, Percutaneous Approach (ICD-10-PCS; 2024-04-19)
PROC: 05HY33Z Insertion of Infusion Device into Upper Vein, Percutaneous Approach (ICD-10-PCS; 2024-05-05)
PROC: 4A133B1 Monitoring of Arterial Pressure, Peripheral, Percutaneous Approach (ICD-10-PCS; 2024-05-05)
PROC: 4A133J1 Monitoring of Arterial Pulse, Peripheral, Percutaneous Approach (ICD-10-PCS; 2024-05-05)
PROC: 5A1955Z Respiratory Ventilation, Greater than 96 Consecutive Hours (ICD-10-PCS; 2024-05-13)
PROC: 0BH17EZ Insertion of Endotracheal Airway into Trachea, Via Natural or Artificial Opening (ICD-10-PCS; 2024-05-13)
PROC: 0W9930Z Drainage of Right Pleural Cavity with Drainage Device, Percutaneous Approach (ICD-10-PCS; 2024-05-13)
PROC: 0B113F4 Bypass Trachea to Cutaneous with Tracheostomy Device, Percutaneous Approach (ICD-10-PCS; principal; 2024-05-26)
PROC: 0BJ08ZZ Inspection of Tracheobronchial Tree, Via Natural or Artificial Opening Endoscopic (ICD-10-PCS; 2024-05-26)
PROC: 0BJ08ZZ Inspection of Tracheobronchial Tree, Via Natural or Artificial Opening Endoscopic (ICD-10-PCS; 2024-05-26)
PROC: 0DH63UZ Insertion of Feeding Device into Stomach, Percutaneous Approach (ICD-10-PCS; 2024-06-01)
PROC: BD12ZZZ Fluoroscopy of Stomach (ICD-10-PCS; 2024-06-01)
PROC: 4A133J1 Monitoring of Arterial Pulse, Peripheral, Percutaneous Approach (ICD-10-PCS; 2024-06-07)
PROC: 4A133B1 Monitoring of Arterial Pressure, Peripheral, Percutaneous Approach (ICD-10-PCS; 2024-06-07)
PROC: 05HM33Z Insertion of Infusion Device into Right Internal Jugular Vein, Percutaneous Approach (ICD-10-PCS; 2024-06-07)
PROC: B543ZZA Ultrasonography of Right Jugular Veins, Guidance (ICD-10-PCS; 2024-06-07)
PROC: 05HM33Z Insertion of Infusion Device into Right Internal Jugular Vein, Percutaneous Approach (ICD-10-PCS; 2024-06-10)
PROC: B543ZZA Ultrasonography of Right Jugular Veins, Guidance (ICD-10-PCS; 2024-06-10)
PROC: 05HB33Z Insertion of Infusion Device into Right Basilic Vein, Percutaneous Approach (ICD-10-PCS; 2024-06-16)
PROC: 0B21XFZ Change Tracheostomy Device in Trachea, External Approach (ICD-10-PCS; 2024-06-22)
DX: J96.02 Acute respiratory failure with hypercapnia (principal); G93.1 Anoxic brain damage, not elsewhere classified; G93.41 Metabolic encephalopathy; I50.33 Acute on chronic diastolic (congestive) heart failure; J69.0 Pneumonitis due to inhalation of food and vomit; J90 Pleural effusion, not elsewhere classified; I47.29 Other ventricular tachycardia; N17.9 Acute kidney failure, unspecified; R78.81 Bacteremia; D69.6 Thrombocytopenia, unspecified; E11.22 Type 2 diabetes mellitus with diabetic chronic kidney disease; E11.51 Type 2 diabetes mellitus with diabetic peripheral angiopathy without gangrene; E87.20 Acidosis, unspecified; I13.0 Hypertensive heart and chronic kidney disease with heart failure and stage 1 through stage 4 chronic kidney disease, or unspecified chronic kidney disease; I82.619 Acute embolism and thrombosis of superficial veins of unspecified upper extremity; J44.9 Chronic obstructive pulmonary disease, unspecified; L89.623 Pressure ulcer of left heel, stage 3; B95.7 Other staphylococcus as the cause of diseases classified elsewhere; I35.8 Other nonrheumatic aortic valve disorders; N18.9 Chronic kidney disease, unspecified; N39.0 Urinary tract infection, site not specified; I46.9 Cardiac arrest, cause unspecified; J96.01 Acute respiratory failure with hypoxia; J95.09 Other tracheostomy complication; Y83.9 Surgical procedure, unspecified as the cause of abnormal reaction of the patient, or of later complication, without mention of misadventure at the time of the procedure; E78.5 Hyperlipidemia, unspecified; I25.10 Atherosclerotic heart disease of native coronary artery without angina pectoris; R33.9 Retention of urine, unspecified; E87.0 Hyperosmolality and hypernatremia; E87.6 Hypokalemia; N40.0 Benign prostatic hyperplasia without lower urinary tract symptoms; A04.72 Enterocolitis due to Clostridium difficile, not specified as recurrent; R31.0 Gross hematuria; B37.9 Candidiasis, unspecified; E83.42 Hypomagnesemia
CPT/HCPCS: 0241U-QW; 31500; 36415; 36430; 36600; 49440; 70450-TC; 70490-TC; 70551-TC; 71045-TC-FY; 74018-TC-FY; 74019-TC-FY; 74176-TC; 74230-TC-FY; 76705-TC; 76775-TC; 80048; 80053; 80061; 80076; 81003; 82042; 82140; 82150; 82272; 82308; 82465; 82533; 82550; 82552; 82570; 82607; 82728; 82746; 82784; 82803; 82945; 82962; 82977; 83010; 83540; 83550; 83605; 83615; 83735; 83880; 83883; 83986; 84100; 84155; 84157; 84165; 84300; 84439; 84443; 84466; 84478; 84484; 85025; 85027; 85610; 85730; 86140; 86704; 86708; 86803; 86850; 86900; 86901; 86922; 87040; 87070; 87075; 87077; 87086; 87106; 87186; 87205; 87324; 87340; 87449; 87517; 88108; 88305-TC; 92611-GN; 93005; 93010; 93306-TC; 93970-TC; 94002; 94640; 94660; 97116-GP; 97162-GP; 99285-25; G0480; J0131; J0637; J0878; J1644; J1756; P9037; P9038; P9058